=== PATIENT | male | born 1985 | race Caucasian/White ===

== ENCOUNTER 2018-04-09 12:46 | Inpatient (IN) | payer OTHER ==
[2018-04-09 14:56] VITALS: BMI 24.0
--- NOTE | 2018-04-09 16:44 | HP ---
"CIWA Score - CIWA Score Nausea/Vomitin-Mild Nausea/No Vomiting Muscle Tremors: 4-Moderate,w/Arms Extend Anxiety: 4-Mod. Anxious/Guarded Agitation: 4-Moderately Restless Paroxysmal Sweats: 1-Minimal Palms Moist Orientation: 0-Oriented Tacttile Disturbances: 0-None Auditory Disturbances: 0-None Visual Disturbances: 0-None Headache: 2-Mild CIWA-Ar Total Score: 16 Admission ROS BHS - HPI Chief Complaint: Here for alcohol withdrawal. Allergies/Adverse Reactions: Allergies Allergy/AdvReac Type Severity Reaction Status Date / Time No Known Allergies Allergy Verified 04/09/18 15:52 History of Present Illness: 32 yom w/ hx alcohol use since age 18. Cocaine use progressed to crack use since age 22. States crack use is increasingly out of control. Was taking taking ativan and seroquel while in patient at [facility] for suicidal ideation. [facility]. PTSD was related to experiences. First time in detox. Last attempts were in a 30 day program. Has been able to maintain sobriety for 3 years post rehab when starts an affiliation w/ a support group. Denies significant medical concerns. Search Terms: Shepaty Betancur, 1985 Search Date: 04/09/2018 05:13:58 PM The Drug Utilization Report below displays all of the controlled substance prescriptions, if any, that your patient has filled in the last twelve months. The information displayed on this report is compiled from pharmacy submissions to the Department, and accurately reflects the information as submitted by the pharmacies. This report was requested by: Iris Moraes | Reference #: [id number] There are no results for the search terms that you entered. Exam Limitations: No Limitations - Ebola screening Have you traveled outside of the country in the last 21 days: No Have you had contact with anyone from an Ebola affected area: No Have you been sick,other than usual withdrawal symptoms: No Do you have a fever: No - Review of Systems Constitutional: Changes in sleep (Difficulty falling and staying asleep. Has used seroquel in past for sleep. Last used 2 months ago.) EENT: reports: Blurred Vision (Wears corrective lenses. Did not bring contacts.) Respiratory: reports: Cough (Cough x a few hours. States cough produces blackish mucous.) Cardiac: reports: No Symptoms Reported GI: reports: No Symptoms Reported : reports: No Symptoms Reported Musculoskeletal: reports: No Symptoms Reported Integumentary: reports: Other (Has psoriasis on hands, knees, and elbows.) Neuro: reports: Tremors (mild tremors of hands r/t withdrawal) Endocrine: reports: No Symptoms Reported Hematology: reports: No Symptoms Reported Psychiatric: reports: Orientated x3, Agitated, Anxious, Depressed (has thought of harming self but never tried. Denies current thoughts to harm self or others. Hx. PTSD) Patient History - Patient Medical History Hx Anemia: No Hx Asthma: No Hx Chronic Obstructive Pulmonary Disease (COPD): No Hx Cancer: No Hx Cardiac Disorders: No Hx Congestive Heart Failure: No Hx Hypertension: No Hx Hypercholesterolemia: No Hx Pacemaker: No HX Cerebrovascular Accident: No Hx Seizures: No Hx Diabetes: No Hx Gastrointestinal Disorders: No Hx Liver Disease: No Hx Genitourinary Disorders: No Hx Sexually Transmitted Disorders: No Hx Renal Disease (ESRD): No Hx Thyroid Disease: No Hx Human Immunodeficiency Virus (HIV): No (Neg) Hx Hepatitis C: No Hx Depression: Yes (Has thought of harming self but never tried to do so.) Hx Suicide Attempt: No Hx Schizophrenia: No - Patient Surgical History Past Surgical History: No - PPD History Previous Implant?: Yes Documented Results: Negative w/proof Implanted On Prior R Admission?: No PPD to be Administered?: Yes - Smoking Cessation Smoking history: Current every day smoker Have you smoked in the past 12 months: Yes Aproximately how many cigarettes per day: 20 Hx Chewing Tobacco Use: No Initiated information on smoking cessation: Yes 'Breaking Loose' booklet given: 04/09/18 - Substance & Tx. History Hx Alcohol Use: Yes Hx Substance Use: Yes Substance Use Type: Alcohol, Cocaine Hx Substance Use Treatment: Yes (Prior 30 day rehabs) - Substances Abused Alcohol Route: Oral Frequency: Daily Amount used: 1 AND 1/2 PINTS VODKA/ 4 LOCOS Age of first use: 18 Date of Last Use: 04/09/18 Crack Route: Smoking Frequency: Daily Amount used: $200-300 Age of first use: 22 Date of Last Use: 04/08/18 Family Disease History - Family Disease History Family Disease History: Diabetes: Grandparent (pancreatic, thyroid, ), Father, Heart Disease: Grandparent, CA: Grandparent Admission Physical Exam [facility] - Vital Signs Vital Signs: Vital Signs - 24 hr 04/09/18 14:45 Temperature 97.0 F L Pulse Rate 87 Respiratory 20 Rate Blood Pressure 133/71 - Physical General Appearance: Yes: Nourished, Tremorous, Irritable, Anxious HEENTM: Yes: EOMI, Hearing grossly Normal, Normocephalic, SHERRON Respiratory: Yes: Chest Non-Tender, Lungs Clear, Normal Breath Sounds Neck: Yes: No masses,lesions,Nodules, Supple Breast: Yes: Breast Exam Deferred Cardiology: Yes: Regular Rhythm, Regular Rate, S1, S2 Abdominal: Yes: Normal Bowel Sounds, Non Tender, Flat, Soft Genitourinary: Yes: Within Normal Limits Back: Yes: Normal Inspection Musculoskeletal: Yes: full range of Motion, Gait Steady Extremities: Yes: Normal Capillary Refill, Normal Range of Motion, Non-Tender, Tremors (Of hands upon extension) 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 NML intact, Fully Oriented, Motor Strength 5/5 Integumentary: Yes: Normal Color, Dry, Warm, Other (Large areas of silvery, flaky patches on back of hands/knuckles, knees, and elbows.) Lymphatic: Yes: Within Normal Limits - Diagnostic (1) Alcohol dependence with uncomplicated withdrawal Current Visit: Yes Status: Acute (2) Cocaine dependence, uncomplicated Current Visit: Yes Status: Acute (3) Psoriasis Current Visit: Yes Status: Chronic (4) Nicotine dependence with withdrawal Current Visit: Yes Status: Acute Qualifiers: Nicotine product type: cigarettes Qualified Code(s): F17.213 - Nicotine dependence, cigarettes, with withdrawal Cleared for Admission [facility] - Detox or Rehab [facility] Level of Care: Medically Managed Detox Regimen/Protocol: Librium [facility] Breath Alcohol Content Breath Alcohol Content: 0.066 Urine Drug Screen - Results Drug Screen Negative: No Urine Drug Screen Results: GILBERTO-Cocaine"
[2018-04-09] MEDS ORDERED: LOPERAMIDE HCL 2 MG CAPSULE PO PRN (17:09)
[2018-04-09] MEDS ORDERED: IBUPROFEN 400 MG TABLET (FP) PO PRN (17:09)
[2018-04-09] MEDS ORDERED: guaiFENesin/D-METHORPHAN HB 10 ML UNIT-DOSE CUPS PO PRN (17:09)
[2018-04-09] MEDS ORDERED: NICOTINE POLACRILEX 2 MG GUM BC PRN (17:09)
[2018-04-09] MEDS ORDERED: MAG HYDROX/AL HYDROX/SIMETH 30 ML UNIT-DOSE CUP PO PRN (17:09)
[2018-04-09] MEDS ORDERED: ACETAMINOPHEN 325 MG TABLET (FP) PO PRN (17:09)
[2018-04-09] MEDS ORDERED: MAGNESIUM CITRATE 300 ML BOTTLE PO PRN (17:09)
[2018-04-09] MEDS ORDERED: chlordiazePOXIDE HCL 25 MG CAPSULE PO PRN (17:09)
[2018-04-09] MEDS ORDERED: MAGNESIUM HYDROX 2400MG/30ML ORAL SUSPENSION 30 ML CUP PO PRN (17:09)
[2018-04-09] MEDS ORDERED: MENTHOL/PHENOL 1 EACH UD MM PRN (17:09)
[2018-04-09] MEDS ORDERED: P-EPHED 60MG/TRIPROLIDI 2.5MG TABLET PO PRN (17:09)
[2018-04-09] MEDS ORDERED: COLLOIDAL OATMEAL 1 BAR EACH TP PRN (17:17)
[2018-04-09] MEDS ORDERED: MELATONIN 5 MG TABLETS PO PRN (22:00)
[2018-04-09] MEDS: THIAMINE HCL 100 MG TABLET (FP) PO SCH (22:34)
[2018-04-09] MEDS: chlordiazePOXIDE HCL 25 MG CAPSULE PO SCH (22:35)
[2018-04-09] MEDS: BETAMETHASONE DIP 0.05% TP LOTION 30 ML BOTTLE TP SCH (22:37)
[2018-04-10] MEDS: chlordiazePOXIDE HCL 25 MG CAPSULE PO SCH ×4 (05:56→22:25)
--- NOTE | 2018-04-10 10:18 | EKG ---
Test Reason : Blood Pressure : / mmHG Vent. Rate : 080 BPM Atrial Rate : 080 BPM P-R Int : 144 ms QRS Dur : 082 ms QT Int : 360 ms P-R-T Axes : -10 059 054 degrees QTc Int : 415 ms NORMAL SINUS RHYTHM NORMAL ECG NO PREVIOUS ECGS AVAILABLE Confirmed by ZAIDA SINCLAIR, KORY ([id number]) on 04/10/2018 10:18:11 AM Referred By: Confirmed By:KORY CERDA MD
[2018-04-10 10:38] LABS: HEMATOCRIT 43.8 % (35.4-49); HEMOGLOBIN 14.9 GM/dL (11.7-16.9); MCH 31.7 pg (25.7-33.7); MCHC 34.1 g/dl (32.0-35.9); MEAN CELL VOLUME 92.8 fl (80-96); MEAN PLT VOLUME 9.1 fl (7.5-11.1); PLATELET COUNT 197 K/MM3 (134-434); RBC 4.72 M/mm3 (4.00-5.60); RDW 12.2 % (11.9-15.9); WHITE BLOOD COUNT 8.5 K/mm3 (4.0-10.0)
[2018-04-10 10:45] LABS: CHLORIDE 106 mmol/L (98-107); SODIUM 143 mmol/L (136-145)
[2018-04-10] MEDS: PRENATAL VITAMINS W/ FOLIC ACID TABLET (FP) PO SCH (10:49)
[2018-04-10] MEDS: BETAMETHASONE DIP 0.05% TP LOTION 30 ML BOTTLE TP SCH ×2 (10:49→22:25)
[2018-04-10 10:53] LABS: URINE APPEARANCE CLEAR; URINE BILIRUBIN NEGATIVE (<2.0 mg/dL); URINE COLOR LTYELLOW; URINE GLUCOSE (UA) NEGATIVE (NEGATIVE); URINE KETONE NEGATIVE (NEGATIVE); URINE LEUK ESTERASE NEGATIVE (NEGATIVE); URINE NITRITE NEGATIVE (NEGATIVE); URINE PROTEIN NEGATIVE (NEGATIVE); URINE UROBILINOGEN NEGATIVE mg/dL (0.2-1.0)
[2018-04-10] MEDS: NICOTINE 21 MG/24 HOURS TOPICAL PATCH TD SCH (10:53)
[2018-04-10 11:06] LABS: ALBUMIN 3.3 g/dl (3.4-5.0); ALK PHOS 70 U/L (45-117); ANION GAP 6 (8-16); BILIRUBIN,TOTAL 0.2 mg/dL (0.2-1.0); BLOOD UREA NITROGEN 14 mg/dL (7-18); CALCIUM 8.7 mg/dL (8.5-10.1); CO2 31 mmol/L (21-32); CREATININE 0.9 mg/dL (0.7-1.3); GLUCOSE,RANDOM 66 mg/dL (74-106); SGOT/AST 19 U/L (15-37); SGPT/ALT 30 U/L (12-78); TOT PROT 6.2 g/dl (6.4-8.2)
--- NOTE | 2018-04-10 11:23 | CONSULT ---
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 Substance Abuse History: Confirmed by patient in this interview.Smoking history : Current every day smoker. Have you smoked in the past 12 months: Yes. Aproximately how many cigarettes per day: 20. Hx Chewing Tobacco Use: No. Initiated information on smoking cessation: Yes. 'Breaking Loose' booklet given : 04/09/18. - Substance & Tx. History. Hx Alcohol Use: Yes. Hx Substance Use : Yes. Substance Use Type: Alcohol, Cocaine. Hx Substance Use Treatment: Yes ( Prior 30 day rehabs). - Substances Abused. Alcohol. Route: Oral. Frequency: Daily. Amount used: 1 AND 1/2 PINTS VODKA/ 4 LOCOS. Age of first use: 18. Date of Last Use: 04/09/18. Crack. Route: Smoking. Frequency: Daily. Amount used: $200-300. Age of first use: 22. Date of Last Use: Medical History: Patient endorses good general health. Psychiatric History: Patient denies history of psychiatric hospitalizations (in spite of [facility] records indicative of a recent discharge from [facility] prior to this visit).Mr Betancur states that he has been diagnosed with Anxiety Disorder and PTSD.Prescribed seroquel + trazodone.Patient reports non-adherence to this regimen for past 2-3 weeks (ran out of medications).He indicates no current contact with OPD care providers (although review of pharmacy claims shows refills for seroquel - 100 mg tab # 90 for 30 days - issued on 04/01/18 at [facility]).Denies history of suicide attempts. Physical/Sexual Abuse/Trauma History: Traumatized by his combat experiences in [facility] + time served in care home (charges not revealed in this session). Additional Comment: Urine Drug Screen Results: GILBERTO-Cocaine.Noted. Mental Status Exam - Mental Status Exam Alert and Oriented to: Time, Place, Person Cognitive Function: Good Patient Appearance: Well Groomed Mood: Nervous, Anxious, Irritable Affect: Mood Congruent Patient Behavior: Fatigued, Cooperative Speech Pattern: Clear, Excessive Voice Loudness: Normal Thought Process: Goal Oriented Thought Disorder: Not Present Hallucinations: Denies Suicidal Ideation: Denies Homicidal Ideation: Denies Insight/Judgement: Poor Sleep: Poorly, Difficulty falling asleep Appetite: Good Muscle strength/Tone: Normal Gait/Station: Normal Psychiatric Findings - Problem List ([place] 1, 2,3) (1) Alcohol dependence with uncomplicated withdrawal Current Visit: Yes Status: Acute (2) Cocaine dependence, uncomplicated Current Visit: Yes Status: Acute (3) Nicotine dependence with withdrawal Current Visit: Yes Status: Acute Qualifiers: Nicotine product type: cigarettes Qualified Code(s): F17.213 - Nicotine dependence, cigarettes, with withdrawal (4) Substance induced mood disorder Current Visit: Yes Status: Acute (5) Post traumatic stress disorder (PTSD) Current Visit: Yes Status: Chronic Comment: As per self-report. (6) Insomnia Current Visit: Yes Status: Acute (7) Non compliance w medication regimen Current Visit: Yes Status: Chronic - Initial Treatment Plan Initial Treatment Plan: Psychoeducation.Detoxification.Sleep hygiene discussed with patient.Medications (patient's request) : seroquel 200 mg po hs + trazodone 50 mg po hs.Side effects/benefits of both drugs are discussed with the patient.Made aware of potential for sedation,falls,metabolic syndrome, cardiovascular adverse events and priapism.Mr Betancur agrees (verbally) to follow this treatment plan.Observation.NO need for scripts at discharge from [facility] (available refills at [facility] since 04/01/18).
[2018-04-10] MEDS: CYCLOBENZAPRINE HCL 10 MG TABLET (FP) PO PRN ×3 (12:42→22:26)
--- NOTE | 2018-04-10 16:01 | PN ---
[facility] CIWA - CIWA Score Nausea/Vomitin-No Nausea/No Vomiting Muscle Tremors: 3 Anxiety: 4-Mod. Anxious/Guarded Agitation: 4-Moderately Restless Paroxysmal Sweats: 3 Orientation: 0-Oriented Tacttile Disturbances: 2-Mild Itch/Numbness/Burn Auditory Disturbances: 0-None Visual Disturbances: 1-Very Mild Sensitivity Headache: 0-None Present CIWA-Ar Total Score: 17 BHS Progress Note (SOAP) Subjective: Body Aches, Sweating, Anxious, Tremors. Objective: PATIENT A & O X 3, OBSERVED AMBULATING ON UNIT. NO ACUTE DISTRESS. 04/10/18 15:58 Vital Signs Temperature 97.2 F L 04/10/18 09:58 Pulse Rate 70 04/10/18 09:58 Respiratory Rate 20 04/10/18 09:58 Blood Pressure 110/90 04/10/18 09:58 O2 Sat by Pulse Oximetry (%) Laboratory Tests 04/10/18 04/10/18 04/10/18 08:00 08:00 08:00 WBC 8.5 RBC 4.72 Hgb 14.9 Hct 43.8 MCV 92.8 MCH 31.7 MCHC 34.1 RDW 12.2 Plt Count 197 MPV 9.1 Sodium 143 Potassium 4.0 Chloride 106 Carbon Dioxide 31 Anion Gap 6 L BUN 14 Creatinine 0.9 Creat Clearance w eGFR > 60 Random Glucose 66 L Calcium 8.7 Total Bilirubin 0.2 AST 19 ALT 30 Alkaline Phosphatase 70 Total Protein 6.2 L Albumin 3.3 L Urine Color Urine Appearance Urine pH Ur Specific [place] Urine Protein Urine Glucose (UA) Urine Ketones Urine Blood Urine Nitrite Urine Bilirubin Urine Urobilinogen Ur Leukocyte Esterase RPR Titer HIV 1&2 Antibody Screen Negative HIV P24 Antigen Negative 04/10/18 04/10/18 08:00 08:30 WBC RBC Hgb Hct MCV MCH MCHC RDW Plt Count MPV Sodium Potassium Chloride Carbon Dioxide Anion Gap BUN Creatinine Creat Clearance w eGFR Random Glucose Calcium Total Bilirubin AST ALT Alkaline Phosphatase Total Protein Albumin Urine Color Ltyellow Urine Appearance Clear Urine pH 6.0 Ur Specific [place] 1.021 Urine Protein Negative Urine Glucose (UA) Negative Urine Ketones Negative Urine Blood Negative Urine Nitrite Negative Urine Bilirubin Negative Urine Urobilinogen Negative Ur Leukocyte Esterase Negative RPR Titer Nonreactive HIV 1&2 Antibody Screen HIV P24 Antigen LABS NOTED. Assessment: 04/10/18 15:59 WITHDRAWAL SYMPTOMS. Plan: CONTINUE DETOX. INCREASE DAILY PO FLUID INTAKE. PRN FLEXERIL PO FOR BODY ACHES / MUSCLE SPASMS.
[2018-04-10] MEDS: traZODone HCL 50 MG TABLET (FP) PO SCH (22:25)
[2018-04-10] MEDS: THIAMINE HCL 100 MG TABLET (FP) PO SCH (22:25)
[2018-04-10] MEDS: QUEtiapine FUMARATE 200 MG TABLET PO SCH (22:26)
[2018-04-11] MEDS: chlordiazePOXIDE HCL 25 MG CAPSULE PO SCH ×3 (05:58→17:27)
[2018-04-11] MEDS: CYCLOBENZAPRINE HCL 10 MG TABLET (FP) PO PRN (06:01)
[2018-04-11] MEDS: PRENATAL VITAMINS W/ FOLIC ACID TABLET (FP) PO SCH (10:34)
[2018-04-11] MEDS: NICOTINE 21 MG/24 HOURS TOPICAL PATCH TD SCH (10:34)
[2018-04-11] MEDS: BETAMETHASONE DIP 0.05% TP LOTION 30 ML BOTTLE TP SCH ×2 (10:34→22:37)
--- NOTE | 2018-04-11 17:14 | PN ---
S CIWA - CIWA Score Nausea/Vomitin Muscle Tremors: 3 Anxiety: 3 Agitation: 3 Paroxysmal Sweats: 3 Orientation: 0-Oriented Tacttile Disturbances: 1-Very Mild Itch/Numbness Auditory Disturbances: 0-None Visual Disturbances: 0-None Headache: 1-Very Mild CIWA-Ar Total Score: 16 [facility] Progress Note (SOAP) Subjective: Sweating, anxious Objective: 04/11/18 17:12 Last Vital Signs Temp Pulse Resp BP Pulse Ox 97.1 F L 104 H 18 120/82 04/11/18 15:04 04/11/18 15:04 04/11/18 15:04 04/11/18 15:04 Laboratory Tests 04/10/18 04/10/18 04/10/18 08:00 08:00 08:00 WBC 8.5 RBC 4.72 Hgb 14.9 Hct 43.8 MCV 92.8 MCH 31.7 MCHC 34.1 RDW 12.2 Plt Count 197 MPV 9.1 Sodium 143 Potassium 4.0 Chloride 106 Carbon Dioxide 31 Anion Gap 6 L BUN 14 Creatinine 0.9 Creat Clearance w eGFR > 60 Random Glucose 66 L Calcium 8.7 Total Bilirubin 0.2 AST 19 ALT 30 Alkaline Phosphatase 70 Total Protein 6.2 L Albumin 3.3 L Urine Color Urine Appearance Urine pH Ur Specific [place] Urine Protein Urine Glucose (UA) Urine Ketones Urine Blood Urine Nitrite Urine Bilirubin Urine Urobilinogen Ur Leukocyte Esterase RPR Titer HIV 1&2 Antibody Screen Negative HIV P24 Antigen Negative 04/10/18 04/10/18 08:00 08:30 WBC RBC Hgb Hct MCV MCH MCHC RDW Plt Count MPV Sodium Potassium Chloride Carbon Dioxide Anion Gap BUN Creatinine Creat Clearance w eGFR Random Glucose Calcium Total Bilirubin AST ALT Alkaline Phosphatase Total Protein Albumin Urine Color Ltyellow Urine Appearance Clear Urine pH 6.0 Ur Specific [place] 1.021 Urine Protein Negative Urine Glucose (UA) Negative Urine Ketones Negative Urine Blood Negative Urine Nitrite Negative Urine Bilirubin Negative Urine Urobilinogen Negative Ur Leukocyte Esterase Negative RPR Titer Nonreactive HIV 1&2 Antibody Screen HIV P24 Antigen Labs reviewed Assessment: 04/11/18 17:13 Withdrawal symptoms Plan: Continue detox Encouraged PO water hydration
[2018-04-11] MEDS: hydrOXYzine PAMOATE 50 MG CAPSULE (FP) PO PRN (17:29)
[2018-04-11] MEDS: NICOTINE POLACRILEX 4 MG GUM BUC PRN (17:30)
[2018-04-11] MEDS: traZODone HCL 50 MG TABLET (FP) PO SCH (22:37)
[2018-04-11] MEDS: QUEtiapine FUMARATE 200 MG TABLET PO SCH (22:37)
[2018-04-11] MEDS: THIAMINE HCL 100 MG TABLET (FP) PO SCH (22:37)
[2018-04-11] MEDS: chlordiazePOXIDE 5 MG CAPSULE PO SCH (22:38)
[2018-04-12] MEDS: CYCLOBENZAPRINE HCL 10 MG TABLET (FP) PO PRN ×2 (05:52→22:19)
[2018-04-12] MEDS: chlordiazePOXIDE 5 MG CAPSULE PO SCH ×3 (05:52→17:21)
[2018-04-12] MEDS: NICOTINE POLACRILEX 4 MG GUM BUC PRN ×3 (05:55→17:21)
[2018-04-12] MEDS ORDERED: cloNIDine HCL 0.1 MG TABLET PO ONE (09:01)
[2018-04-12] MEDS: PRENATAL VITAMINS W/ FOLIC ACID TABLET (FP) PO SCH (10:48)
[2018-04-12] MEDS: NICOTINE 21 MG/24 HOURS TOPICAL PATCH TD SCH (10:48)
[2018-04-12] MEDS: BETAMETHASONE DIP 0.05% TP LOTION 30 ML BOTTLE TP SCH ×2 (10:48→22:18)
--- NOTE | 2018-04-12 16:37 | PN ---
BHS Progress Note (SOAP) Subjective: Anxious, Interrupted Sleep, Body Aches. Objective: PATIENT A & O X 3, OBSERVED AMBULATING ON UNIT. NO ACUTE DISTRESS. 04/12/18 16:34 Vital Signs Temperature 97.1 F L 04/12/18 13:49 Pulse Rate 108 H 04/12/18 13:49 Respiratory Rate 18 04/12/18 13:49 Blood Pressure 133/73 04/12/18 13:49 O2 Sat by Pulse Oximetry (%) Laboratory Tests 04/10/18 04/10/18 04/10/18 08:00 08:00 08:00 WBC 8.5 RBC 4.72 Hgb 14.9 Hct 43.8 MCV 92.8 MCH 31.7 MCHC 34.1 RDW 12.2 Plt Count 197 MPV 9.1 Sodium 143 Potassium 4.0 Chloride 106 Carbon Dioxide 31 Anion Gap 6 L BUN 14 Creatinine 0.9 Creat Clearance w eGFR > 60 Random Glucose 66 L Calcium 8.7 Total Bilirubin 0.2 AST 19 ALT 30 Alkaline Phosphatase 70 Total Protein 6.2 L Albumin 3.3 L Urine Color Urine Appearance Urine pH Ur Specific [place] Urine Protein Urine Glucose (UA) Urine Ketones Urine Blood Urine Nitrite Urine Bilirubin Urine Urobilinogen Ur Leukocyte Esterase RPR Titer HIV 1&2 Antibody Screen Negative HIV P24 Antigen Negative 04/10/18 04/10/18 08:00 08:30 WBC RBC Hgb Hct MCV MCH MCHC RDW Plt Count MPV Sodium Potassium Chloride Carbon Dioxide Anion Gap BUN Creatinine Creat Clearance w eGFR Random Glucose Calcium Total Bilirubin AST ALT Alkaline Phosphatase Total Protein Albumin Urine Color Ltyellow Urine Appearance Clear Urine pH 6.0 Ur Specific [place] 1.021 Urine Protein Negative Urine Glucose (UA) Negative Urine Ketones Negative Urine Blood Negative Urine Nitrite Negative Urine Bilirubin Negative Urine Urobilinogen Negative Ur Leukocyte Esterase Negative RPR Titer Nonreactive HIV 1&2 Antibody Screen HIV P24 Antigen LABS NOTED. Assessment: 04/12/18 16:35 WITHDRAWAL SYMPTOMS. Plan: CONTINUE DETOX. INCREASE DAILY PO FLUID INTAKE. PATIENT SCHEDULED FOR D/C TOMORROW AM.
[2018-04-12] MEDS: hydrOXYzine PAMOATE 50 MG CAPSULE (FP) PO PRN (17:22)
[2018-04-12] MEDS: traZODone HCL 50 MG TABLET (FP) PO SCH (22:19)
[2018-04-12] MEDS: QUEtiapine FUMARATE 200 MG TABLET PO SCH (22:19)
[2018-04-12] MEDS: THIAMINE HCL 100 MG TABLET (FP) PO SCH (22:19)
[2018-04-12] MEDS: chlordiazePOXIDE HCL 10 MG CAPSULE PO SCH (22:19)
[2018-04-13] MEDS: chlordiazePOXIDE HCL 10 MG CAPSULE PO SCH (05:30)
[2018-04-13 06:33] VITALS: BP 117/67; PULSE 77; TEMP 96.9
--- NOTE | 2018-04-13 16:39 | PN ---
S Progress Note (SOAP) Subjective: Patient denies current Detox symptoms and reports that he feels well overall. Objective: PATIENT A & O X 3, OBSERVED AMBULATING ON UNIT. NO ACUTE DISTRESS. 04/13/18 16:38 Vital Signs Temperature 96.9 F L 04/13/18 06:32 Pulse Rate 77 04/13/18 06:32 Respiratory Rate 18 04/13/18 06:32 Blood Pressure 117/67 04/13/18 06:32 O2 Sat by Pulse Oximetry (%) Laboratory Tests 04/10/18 04/10/18 04/10/18 08:00 08:00 08:00 WBC 8.5 RBC 4.72 Hgb 14.9 Hct 43.8 MCV 92.8 MCH 31.7 MCHC 34.1 RDW 12.2 Plt Count 197 MPV 9.1 Sodium 143 Potassium 4.0 Chloride 106 Carbon Dioxide 31 Anion Gap 6 L BUN 14 Creatinine 0.9 Creat Clearance w eGFR > 60 Random Glucose 66 L Calcium 8.7 Total Bilirubin 0.2 AST 19 ALT 30 Alkaline Phosphatase 70 Total Protein 6.2 L Albumin 3.3 L Urine Color Urine Appearance Urine pH Ur Specific [place] Urine Protein Urine Glucose (UA) Urine Ketones Urine Blood Urine Nitrite Urine Bilirubin Urine Urobilinogen Ur Leukocyte Esterase RPR Titer HIV 1&2 Antibody Screen Negative HIV P24 Antigen Negative 04/10/18 04/10/18 08:00 08:30 WBC RBC Hgb Hct MCV MCH MCHC RDW Plt Count MPV Sodium Potassium Chloride Carbon Dioxide Anion Gap BUN Creatinine Creat Clearance w eGFR Random Glucose Calcium Total Bilirubin AST ALT Alkaline Phosphatase Total Protein Albumin Urine Color Ltyellow Urine Appearance Clear Urine pH 6.0 Ur Specific [place] 1.021 Urine Protein Negative Urine Glucose (UA) Negative Urine Ketones Negative Urine Blood Negative Urine Nitrite Negative Urine Bilirubin Negative Urine Urobilinogen Negative Ur Leukocyte Esterase Negative RPR Titer Nonreactive HIV 1&2 Antibody Screen HIV P24 Antigen LABS NOTED. Assessment: 04/13/18 16:38 COMPLETION OF DETOX REGIMEN. Plan: PATIENT SCHEDULED FOR DISCHARGE FROM DETOX UNIT TODAY.
--- NOTE | 2018-04-13 16:42 | DS ---
[facility] Detox Discharge Summary Admission Date: 04/09/18 Discharge Date: 04/13/18 - History Present History: Alcohol Dependence, Cocaine Dependence Additional Comments: PATIENT GOING HOME. PATIENT ADVISED TO CONSIDER LOCAL 12-STEP / NA / AA OUTPATIENT SUPPORT GROUPS FOR AFTERCARE. PATIENT WAS DISCHARGED FROM DETOX UNIT IN STABLE MEDICAL CONDITION. Pertinent Past History: Psoriasis, Nicotine Dependence, Insomnia, PTSD. - Physical Exam Results Vital Signs: Vital Signs Temperature 96.9 F L 04/13/18 06:32 Pulse Rate 77 04/13/18 06:32 Respiratory Rate 18 04/13/18 06:32 Blood Pressure 117/67 04/13/18 06:32 O2 Sat by Pulse Oximetry (%) Pertinent Admission Physical Exam Findings: WITHDRAWAL SYMPTOMS. Laboratory Tests 04/10/18 04/10/18 04/10/18 08:00 08:00 08:00 WBC 8.5 RBC 4.72 Hgb 14.9 Hct 43.8 MCV 92.8 MCH 31.7 MCHC 34.1 RDW 12.2 Plt Count 197 MPV 9.1 Sodium 143 Potassium 4.0 Chloride 106 Carbon Dioxide 31 Anion Gap 6 L BUN 14 Creatinine 0.9 Creat Clearance w eGFR > 60 Random Glucose 66 L Calcium 8.7 Total Bilirubin 0.2 AST 19 ALT 30 Alkaline Phosphatase 70 Total Protein 6.2 L Albumin 3.3 L Urine Color Urine Appearance Urine pH Ur Specific [place] Urine Protein Urine Glucose (UA) Urine Ketones Urine Blood Urine Nitrite Urine Bilirubin Urine Urobilinogen Ur Leukocyte Esterase RPR Titer HIV 1&2 Antibody Screen Negative HIV P24 Antigen Negative 04/10/18 04/10/18 08:00 08:30 WBC RBC Hgb Hct MCV MCH MCHC RDW Plt Count MPV Sodium Potassium Chloride Carbon Dioxide Anion Gap BUN Creatinine Creat Clearance w eGFR Random Glucose Calcium Total Bilirubin AST ALT Alkaline Phosphatase Total Protein Albumin Urine Color Ltyellow Urine Appearance Clear Urine pH 6.0 Ur Specific [place] 1.021 Urine Protein Negative Urine Glucose (UA) Negative Urine Ketones Negative Urine Blood Negative Urine Nitrite Negative Urine Bilirubin Negative Urine Urobilinogen Negative Ur Leukocyte Esterase Negative RPR Titer Nonreactive HIV 1&2 Antibody Screen HIV P24 Antigen LABS NOTED. - Treatment Hospital Course: Detox Protocol Followed, Detoxed Safely, Responded well, Discharged Condition Good Patient has Accepted a Rehab Referral to: PT. ADVISED TO CONSIDER LOCAL 12-STEP/ NA/AA OUTPATIENT SUPPORT GROUPS. - Medication Discharge Medications: Ambulatory Orders NK [No Known Home Medication] 04/09/18 - Diagnosis (1) Alcohol dependence with uncomplicated withdrawal Status: Acute (2) Cocaine dependence, uncomplicated Status: Chronic (3) Nicotine dependence with withdrawal Status: Chronic Qualifiers: Nicotine product type: cigarettes Qualified Code(s): F17.213 - Nicotine dependence, cigarettes, with withdrawal (4) Psoriasis Status: Chronic (5) Insomnia Status: Acute Qualifiers: Insomnia type: unspecified Qualified Code(s): G47.00 - Insomnia, unspecified (6) Substance induced mood disorder Status: Acute (7) Non compliance w medication regimen Status: Chronic (8) Post traumatic stress disorder (PTSD) Status: Chronic - AMA Did Patient Leave Against Medical Advice: No
== END 2018-04-13 10:55 | disposition home or self-care (01) | DRG 774 ==
LOC: YASAS 12:46 → Y3N 17:19
PROVIDERS: ADMIT Surgery; ATTEND Surgery
PROC: HZ2ZZZZ Detoxification Services for Substance Abuse Treatment (ICD-10-PCS; principal; 2018-04-09)
DX: F10.230 Alcohol dependence with withdrawal, uncomplicated (principal); F14.20 Cocaine dependence, uncomplicated; F17.213 Nicotine dependence, cigarettes, with withdrawal; F19.24 Other psychoactive substance dependence with psychoactive substance-induced mood disorder; F43.10 Post-traumatic stress disorder, unspecified; L40.9 Psoriasis, unspecified; G47.00 Insomnia, unspecified; Z91.14 Patient's other noncompliance with medication regimen
CPT/HCPCS: 36415; 80053; 81003; 85027; 86593; 87389; 93005; 93010; J0735

== ENCOUNTER 2018-10-17 11:09 | Emergency (ER) | payer OTHER ==
[2018-10-17 11:23] VITALS: BP 134/72; PULSE 78; TEMP 97.6
--- NOTE | 2018-10-17 11:45 | PDOC ---
History of Present Illness - General Chief Complaint: Migraine Headache Stated Complaint: headache Time Seen by Provider: 10/17/18 11:13 - History of Present Illness Initial Comments: 10/17/18 16:16 Chief complaint: Occipital headache History of present illness: Patient complains of intermittent occipital headache for several days after heavy weight lifting. The pain is temporarily relieved with ibuprofen but then returns. He has been performing all his normal activities, going to work, and sleeping without incident. Review of systems: No visual or focal neurologic symptoms. No unsteadiness of gait. No chest pain, shortness of breath, abdominal pain, nausea, vomiting, diarrhea, dysuria or frequency. Past medical history: Facial fracture many years ago of the right orbit, multiple problems with drugs and alcohol, denies excessive alcohol or use of nonprescription drugs at present Social/family history reviewed and noncontributory except as above Physical exam: Alert and oriented well-developed well-nourished no acute distress cheerful and cooperative Afebrile, vital signs normal Head atraumatic. No sign of injury. No contusions abrasions or lacerations. PERRLA 4 mm, fundi benign with sharp disc margins and good central venous pulsations. ENT clear Neck without tenderness or deformity, full range of motion without pain, no bruits masses or nodes Chest clear to P&A full breath sounds bilaterally CV S1 and S2 normal without murmur rub or gallop pulses full and symmetric no JVD or edema no bruits Abdomen nondistended. Bowel sounds normal. Soft without mass tenderness organomegaly Neurological C2 to 12 intact. Strength full and symmetric. No focal or sensory or motor deficits. Gait stable and unimpaired. Impression: Headache for several days, probably due to stress or tension. Plan: CT is negative. Analgesia successful, with complete resolution of the headache. Continue nonsteroidals, rest, follow-up primary physician if headaches recur, or consider neurology consultation. Fully ambulatory and in no pain or other distress upon discharge with to follow-up as directed Past History - Past Medical History Allergies/Adverse Reactions: Allergies Allergy/AdvReac Type Severity Reaction Status Date / Time No Known Allergies Allergy Verified 10/17/18 11:15 Home Medications: Ambulatory Orders Diclofenac Sodium 75 mg PO BID #14 tablet. 10/17/18 hydrOXYzine PAMOATE [Vistaril -] 50 mg PO HS PRN #10 capsule 10/17/18 Anemia: No Asthma: No Cancer: No Cardiac Disorders: No CVA: No COPD: No CHF: No Diabetes: No GI Disorders: No Disorders: No HTN: No Hypercholesterolemia: No Kidney Stones: No Liver Disease: No Seizures: No Thyroid Disease: No - Reproductive History Testicular Surgery: No - Suicide/Smoking/Psychosocial Hx Smoking History: Never smoked Have you smoked in the past 12 months: No Number of Cigarettes Smoked Daily: 20 Information on smoking cessation initiated: No 'Breaking Loose' booklet given: 04/09/18 Hx Alcohol Use: No Drug/Substance Use Hx: No Substance Use Type: Alcohol, Cocaine Hx Substance Use Treatment: Yes (Prior 30 day rehabs) *Physical Exam - Vital Signs Last Vital Signs Temp Pulse Resp BP Pulse Ox 97.6 F 78 20 134/72 100 10/17/18 11:09 10/17/18 11:09 10/17/18 11:09 10/17/18 11:09 10/17/18 11:09 Moderate Sedation - Procedure Monitoring Vital Signs: Procedure Monitoring Vital Signs Temperature 97.6 F 10/17/18 11:09 Pulse Rate 78 10/17/18 11:09 Respiratory Rate 20 10/17/18 11:09 Blood Pressure 134/72 10/17/18 11:09 O2 Sat by Pulse Oximetry (%) 100 10/17/18 11:09 *DC/Admit/Observation/Transfer Diagnosis at time of Disposition: Headache Qualifiers: Headache type: tension-type Headache chronicity pattern: unspecified pattern Intractability: not intractable Qualified Code(s): G44.209 - Tension-type headache, unspecified, not intractable - Discharge Dispostion Disposition: HOME Condition at time of disposition: Improved Decision to Admit order: No - Prescriptions Prescriptions: Diclofenac Sodium 75 mg PO BID #14 tablet. hydrOXYzine PAMOATE [Vistaril -] 50 mg PO HS PRN #10 capsule PRN Reason: Agitation - Referrals - Patient Instructions Printed Discharge Instructions: DI for Migraine - Post Discharge Activity Forms/Work/School Notes: Back to Work
[2018-10-17] MEDS ORDERED: hydrOXYzine PAMOATE 50 MG CAPSULE (FP) PO ONE (11:46)
[2018-10-17] MEDS ORDERED: KETOROLAC TROMETHAMINE 60 MG/2 ML VIAL IM ONE (11:46)
[2018-10-17] MEDS ORDERED: KETOROLAC TROMETHAMINE 60 MG/2 ML VIAL ONE (12:01)
[2018-10-17] MEDS ORDERED: hydrOXYzine PAMOATE 25 MG CAPSULE (FP) PO ONE (12:01)
[2018-10-17 12:30] VITALS: BMI 29.4
== END 2018-10-17 13:57 | disposition home or self-care (01) ==
LOC: FER 11:09
PROC: 3E0333Z Introduction of Anti-inflammatory into Peripheral Vein, Percutaneous Approach (ICD-10-PCS; principal; 2018-10-17)
DX: G44.209 Tension-type headache, unspecified, not intractable (principal); Z87.891 Personal history of nicotine dependence
CPT/HCPCS: 70450-TC; 99281-25

== ENCOUNTER 2018-11-30 15:36 | Inpatient (IN) | payer OTHER ==
[2018-11-30 17:36] VITALS: BMI 25.8
--- NOTE | 2018-11-30 17:49 | HP ---
CIWA Score Nausea/Vomitin-Mild Nausea/No Vomiting Muscle Tremors: 3 Anxiety: 2 Agitation: 3 Paroxysmal Sweats: 1-Minimal Palms Moist Orientation: 1-Uncertain about Date Tacttile Disturbances: 2-Mild Itch/Numbness/Burn Auditory Disturbances: 2-Mild Harshness/Frighten Visual Disturbances: 1-Very Mild Sensitivity Headache: 1-Very Mild CIWA-Ar Total Score: 17 - Admission Criteria OASAS Guidelines: Admission for Medically Managed Detox: Requires at least one of the followin. CIWA greater than 12 2. Seizures within the past 24 hours 3. Delirium tremens within the past 24 hours 4. Hallucinations within the past 24 hours 5. Acute intervention needed for co occurring medical disorder 6. Acute intervention needed for co occurring psychiatric disorder 7. Severe withdrawal that cannot be handled at a lower level of care (continued vomiting, continued diarrhea, abnormal vital signs) requiring intravenous medication and/or fluids 8. Admission ROS S - [facility] Chief Complaint: WITHDRAWAL SYMPTOMS Allergies/Adverse Reactions: Allergies Allergy/AdvReac Type Severity Reaction Status Date / Time No Known Allergies Allergy Verified 10/17/18 11:15 History of Present Illness: 33 Y.O. MAN WITH AN EXTENSIVE HISTORY OF ALCOHOL AND CRACK-COCAINE DEPENDENCE IS HERE SEEKING DETOX. HE WAS LAST HERE IN 04/2018 FOR DETOX. DOES NOT HAVE A SIGNIFICANT PERIOD OF SOBRIETY. Exam Limitations: No Limitations - Ebola screening Have you traveled outside of the country in the last 21 days: No Have you had contact with anyone from an Ebola affected area: No Have you been sick,other than usual withdrawal symptoms: No Do you have a fever: No - Review of Systems Constitutional: Chills, Loss of Appetite, Night Sweats, Changes in sleep, Unintentional Wgt. Loss EENT: reports: Blurred Vision, Tearing Respiratory: reports: Cough Cardiac: reports: Chest Pain GI: reports: No Symptoms Reported : reports: No Symptoms Reported Musculoskeletal: reports: Joint Pain Integumentary: reports: No Symptoms Reported Neuro: reports: Tremors Endocrine: reports: No Symptoms Reported Hematology: reports: No Symptoms Reported Psychiatric: reports: Anxious, Depressed Other Systems: Reviewed and Negative Patient History - Patient Medical History Hx Anemia: No Hx Asthma: No Hx Chronic Obstructive Pulmonary Disease (COPD): No Hx Cancer: No Hx Cardiac Disorders: No Hx Congestive Heart Failure: No Hx Hypertension: No Hx Hypercholesterolemia: No Hx Pacemaker: No HX Cerebrovascular Accident: No Hx Seizures: Yes Hx Dementia: No (DOES NOT RECDALL LAST SZ ) Hx Diabetes: No Hx Gastrointestinal Disorders: No Hx Liver Disease: No Hx Genitourinary Disorders: No Hx Sexually Transmitted Disorders: No Hx Renal Disease (ESRD): No Hx Thyroid Disease: No Hx Human Immunodeficiency Virus (HIV): No (Neg) Hx Hepatitis C: No Hx Depression: Yes (Has thought of harming self but never tried to do so.) Hx Suicide Attempt: No Hx Bipolar Disorder: No Hx Schizophrenia: No - Patient Surgical History Past Surgical History: No - PPD History Previous Implant?: Yes Documented Results: Negative w/o proof Implanted On Prior [facility] Admission?: Yes Date: 04/11/18 Results: 0 PPD to be Administered?: No - Reproductive History Patient is a Female of Child Bearing Age (11 -55 yrs old): No - Smoking Cessation Smoking history: Current every day smoker Have you smoked in the past 12 months: No Aproximately how many cigarettes per day: 20 Hx Chewing Tobacco Use: No Initiated information on smoking cessation: Yes 'Breaking Loose' booklet given: 11/30/18 - Substance & Tx. History Hx Alcohol Use: Yes Hx Substance Use: Yes Substance Use Type: Alcohol, Cocaine Hx Substance Use Treatment: Yes (DETOX: 04/2018) - Substances Abused Alcohol Route: Inhalation Frequency: Daily Amount used: 3-4 4-LOCOS Age of first use: 15 Date of Last Use: 11/30/18 Crack Route: Smoking Frequency: Daily Amount used: $500 Age of first use: 19 Date of Last Use: 11/29/18 Family Disease History - Family Disease History Family Disease History: Diabetes: Grandparent (pancreatic, thyroid, ), Father, Heart Disease: Grandparent, [place]: Grandparent Admission Physical Exam [facility] - Vital Signs Vital Signs: Vital Signs - 24 hr 11/30/18 17:23 Temperature 97.3 F L Pulse Rate 95 H Respiratory 20 Rate Blood Pressure 150/101 H - Physical General Appearance: Yes: Tremorous, Irritable, Sweating, Anxious HEENTM: Yes: Hearing grossly Normal, Normal ENT Inspection, Normocephalic Respiratory: Yes: Chest Non-Tender, Lungs Clear, Normal Breath Sounds, No Respiratory Distress, No Accessory Muscle Use Neck: Yes: Within Normal Limits, No masses,lesions,Nodules Breast: Yes: Breast Exam Deferred Cardiology: Yes: Regular Rhythm, Regular Rate Abdominal: Yes: Normal Bowel Sounds, Non Tender, Flat Genitourinary: Yes: Other (NO COMPLAINTS REPORTED) Back: Yes: Normal Inspection Musculoskeletal: Yes: full range of Motion, Gait Steady, Pelvis Stable Extremities: Yes: Normal Capillary Refill, Normal Inspection, Normal Range of Motion, Non-Tender Neurological: Yes: Alert, Motor Strength 5/5, Normal Mood/Affect, Normal Response Integumentary: Yes: Normal Color, Dry, Warm Lymphatic: Yes: Within Normal Limits - Diagnostic (1) Alcohol dependence with uncomplicated withdrawal Current Visit: Yes Status: Chronic (2) Cocaine dependence, uncomplicated Current Visit: Yes Status: Chronic (3) Nicotine dependence with withdrawal Current Visit: Yes Status: Chronic Qualifiers: Nicotine product type: cigarettes Qualified Code(s): F17.213 - Nicotine dependence, cigarettes, with withdrawal Cleared for Admission [facility] - Detox or Rehab [facility] Level of Care: Medically Managed Detox Regimen/Protocol: Valium [facility] Breath Alcohol Content Breath Alcohol Content: 0.079 Urine Drug Screen - Results Drug Screen Negative: No Urine Drug Screen Results: THC-Marijuana, GILBERTO-Cocaine, MET-Methamphetamine, BZO- Benzodiazepines Inpatient Rehab Admission - Rehab Decision to Admit Inpatient rehab admission?: No
[2018-11-30] MEDS ORDERED: hydrOXYzine PAMOATE 25 MG CAPSULE (FP) PO PRN (17:56)
[2018-11-30] MEDS ORDERED: QUEtiapine FUMARATE 50 MG TABLET PO PRN (17:56)
[2018-11-30] MEDS ORDERED: METHOCARBAMOL 500 MG TABLET PO PRN (17:56)
[2018-11-30] MEDS ORDERED: ACETAMINOPHEN 325 MG TABLET (FP) PO PRN ×2 (17:56)
[2018-11-30] MEDS ORDERED: MAG HYDROX/AL HYDROX/SIMETH 30 ML UNIT-DOSE CUP PO PRN (17:56)
[2018-11-30] MEDS ORDERED: MENTHOL/PHENOL 1 EACH UD MM PRN (17:56)
[2018-11-30] MEDS ORDERED: BISMUTH SUBSALICYLATE 524 MG/30 ML UD PO PRN (17:56)
[2018-11-30] MEDS ORDERED: MAGNESIUM CITRATE 300 ML BOTTLE PO PRN (17:56)
[2018-11-30] MEDS ORDERED: MELATONIN 5 MG TABLETS PO PRN (17:56)
[2018-11-30] MEDS ORDERED: MAGNESIUM HYDROX 2400MG/30ML ORAL SUSPENSION 30 ML CUP PO PRN (17:56)
[2018-11-30] MEDS ORDERED: IBUPROFEN 400 MG TABLET (FP) PO PRN (17:56)
[2018-11-30] MEDS ORDERED: ONDANSETRON *ODT* 4 MG TABLET SL PRN (17:56)
[2018-11-30] MEDS ORDERED: diazePAM 5 MG TABLET PO ONE (19:15)
[2018-11-30] MEDS: THIAMINE HCL 100 MG TABLET (FP) PO SCH (22:55)
[2018-11-30] MEDS: diazePAM 5 MG TABLET PO SCH (22:55)
[2018-12-01] MEDS: diazePAM 5 MG TABLET PO SCH ×3 (06:58→22:24)
--- NOTE | 2018-12-01 09:32 | EKG ---
Test Reason : Blood Pressure : / mmHG Vent. Rate : 084 BPM Atrial Rate : 084 BPM P-R Int : 164 ms QRS Dur : 092 ms QT Int : 366 ms P-R-T Axes : -11 047 052 degrees QTc Int : 432 ms NORMAL SINUS RHYTHM NORMAL ECG WHEN COMPARED WITH ECG OF 09-APR-2018 18:26, NONSPECIFIC T WAVE ABNORMALITY NOW EVIDENT IN ANTERIOR LEADS Confirmed by ZAIDA SINCLAIR, KORY ([id number]) on 12/01/2018 9:31:42 AM Referred By: Confirmed By:KORY CERDA MD
[2018-12-01] MEDS: diazePAM 5 MG TABLET PO PRN ×2 (10:46→17:44)
[2018-12-01] MEDS: PRENATAL VITAMINS W/ FOLIC ACID TABLET (FP) PO SCH (10:46)
[2018-12-01] MEDS: NICOTINE 21 MG/24 HOURS TOPICAL PATCH TD SCH (11:51)
--- NOTE | 2018-12-01 12:17 | PN ---
S CIWA - CIWA Score Nausea/Vomitin-No Nausea/No Vomiting Muscle Tremors: 3 Anxiety: 3 Agitation: 4-Moderately Restless Paroxysmal Sweats: 3 Orientation: 0-Oriented Tacttile Disturbances: 0-None Auditory Disturbances: 0-None Visual Disturbances: 0-None Headache: 0-None Present CIWA-Ar Total Score: 13 BHS Progress Note (SOAP) Subjective: sweats shakes interrupted sleep body aches Objective: 12/01/18 12:16 Vital Signs Temperature 96.8 F L 12/01/18 10:01 Pulse Rate 98 H 12/01/18 10:01 Respiratory Rate 16 12/01/18 10:01 Blood Pressure 134/69 12/01/18 10:01 O2 Sat by Pulse Oximetry (%) labs pending aaox3 ambulating no acute distress Assessment: 12/01/18 12:17 withdrawal sx Plan: continue detox increase fluids labs pending
[2018-12-01 12:34] LABS: HEMATOCRIT 45.5 % (35.4-49); HEMOGLOBIN 15.1 GM/dL (11.7-16.9); MCHC 33.3 g/dl (32.0-35.9); MEAN CELL VOLUME 93.1 fl (80-96); MEAN PLT VOLUME 9.6 fl (7.5-11.1); PLATELET COUNT 217 K/MM3 (134-434); RBC 4.89 M/mm3 (4.00-5.60); RDW 12.3 % (11.9-15.9); WHITE BLOOD COUNT 5.8 K/mm3 (4.0-10.0)
--- NOTE | 2018-12-01 12:58 | CONSULT ---
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 Smkoes cigarettes 1 ppd Psychiatric History: Reports being diagnosed with PTSD in 2007 and prescribed medications. Reports non adherent to OPD care and medications. Reports receiving medications whenever admitted to inpatient substance abuse program. He was admitted to this facility in April 2018 and prescribed Seroquel 200 mg po HS and Trazadone 50 mg po HS by Dr Collins. 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 Denies previous psychiatric hospitalizaytion or suicidal attempt. At present, reports feeling depressed, anxious and sleeping poorly Physical/Sexual Abuse/Trauma History: Denies history of emotional, physical or sexual abuse as well as DV relationship. Traumatized by his combat experiences in [place] + time served in [facility] (charges not revealed in this session). Mental Status Exam - Mental Status Exam Alert and Oriented to: Time, Place, Person Cognitive Function: Fair Patient Appearance: Well Groomed Mood: Depressed, Anxious Affect: Appropriate Patient Behavior: Cooperative Speech Pattern: Clear Voice Loudness: Normal Thought Process: Intact, Goal Oriented Hallucinations: Denies Suicidal Ideation: Denies Insight/Judgement: Fair Sleep: Poorly Appetite: Good Muscle strength/Tone: Normal Psychiatric Findings - Problem List (Carmel 1, 2,3) (1) Post traumatic stress disorder (PTSD) Current Visit: No Status: Chronic Comment: As per self-report. (2) Substance induced mood disorder Current Visit: No Status: Acute (3) Substance-induced sleep disorder Current Visit: Yes Status: Acute (4) Alcohol dependence with uncomplicated withdrawal Current Visit: Yes Status: Acute (5) Cocaine dependence, uncomplicated Current Visit: Yes Status: Acute (6) Nicotine dependence with withdrawal Current Visit: Yes Status: Chronic Qualifiers: Nicotine product type: cigarettes Qualified Code(s): F17.213 - Nicotine dependence, cigarettes, with withdrawal (7) Psoriasis Current Visit: No Status: Chronic - Initial Treatment Plan Initial Treatment Plan: 1) Continue Seroquel 200 mg po HS. 2) Continue inpatient detoxification
[2018-12-01 13:12] LABS: ALBUMIN 3.7 g/dl (3.4-5.0); ALK PHOS 77 U/L (45-117); ANION GAP 8 MMOL/L (8-16); BILIRUBIN,TOTAL 0.4 mg/dL (0.2-1); BLOOD UREA NITROGEN 13 mg/dL (7-18); CALCIUM 8.8 mg/dL (8.5-10.1); CHLORIDE 106 mmol/L (98-107); CO2 27 mmol/L (21-32); GLUCOSE,RANDOM 138 mg/dL (74-106); POTASSIUM 4.4 mmol/L (3.5-5.1); SGOT/AST 15 U/L (15-37); SGPT/ALT 27 U/L (13-61); SODIUM 141 mmol/L (136-145); TOT PROT 6.6 g/dl (6.4-8.2)
[2018-12-01] MEDS: THIAMINE HCL 100 MG TABLET (FP) PO SCH (22:24)
[2018-12-01] MEDS: QUEtiapine FUMARATE 200 MG TABLET PO SCH (22:24)
[2018-12-01] MEDS: NICOTINE POLACRILEX 2 MG GUM BUC PRN (22:27)
[2018-12-02] MEDS: NICOTINE 21 MG/24 HOURS TOPICAL PATCH TD SCH (10:56)
[2018-12-02] MEDS: diazePAM 5 MG TABLET PO SCH ×2 (10:57→23:42)
[2018-12-02] MEDS: PRENATAL VITAMINS W/ FOLIC ACID TABLET (FP) PO SCH (10:57)
--- NOTE | 2018-12-02 11:59 | PN ---
[facility] CIWA - CIWA Score Nausea/Vomitin-No Nausea/No Vomiting Muscle Tremors: 3 Anxiety: 3 Agitation: 3 Paroxysmal Sweats: 3 Orientation: 0-Oriented Tacttile Disturbances: 0-None Auditory Disturbances: 0-None Visual Disturbances: 0-None Headache: 0-None Present CIWA-Ar Total Score: 12 BHS Progress Note (SOAP) Subjective: agitation sweats irritable interrupted sleep Objective: 12/02/18 11:58 Vital Signs Temperature 98.4 F 12/02/18 09:56 Pulse Rate 97 H 12/02/18 09:56 Respiratory Rate 18 12/02/18 09:56 Blood Pressure 137/77 12/02/18 09:56 O2 Sat by Pulse Oximetry (%) Laboratory Tests 12/01/18 12/01/18 12/01/18 08:00 08:00 08:00 WBC 5.8 RBC 4.89 Hgb 15.1 Hct 45.5 MCV 93.1 MCH 31.0 MCHC 33.3 RDW 12.3 Plt Count 217 MPV 9.6 Sodium 141 Potassium 4.4 Chloride 106 Carbon Dioxide 27 Anion Gap 8 BUN 13 Creatinine 1.0 Creat Clearance w eGFR 86.06 Random Glucose 138 H Calcium 8.8 Total Bilirubin 0.4 AST 15 ALT 27 Alkaline Phosphatase 77 Total Protein 6.6 Albumin 3.7 RPR Titer Nonreactive HIV 1&2 Antibody Screen HIV P24 Antigen 12/01/18 08:00 WBC RBC Hgb Hct MCV MCH MCHC RDW Plt Count MPV Sodium Potassium Chloride Carbon Dioxide Anion Gap BUN Creatinine Creat Clearance w eGFR Random Glucose Calcium Total Bilirubin AST ALT Alkaline Phosphatase Total Protein Albumin RPR Titer HIV 1&2 Antibody Screen Negative HIV P24 Antigen Negative aaox3 ambulating no acute distress Assessment: 12/02/18 11:58 withdrawal sx Plan: continue detox increase fluids
[2018-12-02] MEDS: NICOTINE POLACRILEX 2 MG GUM BUC PRN (17:13)
[2018-12-02] MEDS ORDERED: NICOTINE POLACRILEX 4 MG GUM BUC PRN (18:32)
[2018-12-02] MEDS: THIAMINE HCL 100 MG TABLET (FP) PO SCH (22:43)
[2018-12-02] MEDS: QUEtiapine FUMARATE 200 MG TABLET PO SCH (23:44)
[2018-12-03] MEDS ORDERED: diazePAM 5 MG TABLET PO SCH (06:00)
[2018-12-03 06:33] VITALS: BP 112/56; PULSE 73; TEMP 97
--- NOTE | 2018-12-03 10:10 | DS ---
[facility] Detox Discharge Summary Admission Date: 11/30/18 Discharge Date: 12/03/18 - History Present History: Alcohol Dependence, Cocaine Dependence - Physical Exam Results Vital Signs: Vital Signs Temperature 97.0 F L 12/03/18 06:00 Pulse Rate 73 12/03/18 06:00 Respiratory Rate 18 12/03/18 06:00 Blood Pressure 112/56 L 12/03/18 06:00 O2 Sat by Pulse Oximetry (%) - Treatment Hospital Course: Detox Protocol Followed, Detoxed Safely, Responded well, Discharged Condition Good, Rehab Referral Accepted - Medication Discharge Medications: Ambulatory Orders Diclofenac Sodium 75 mg PO BID #14 tablet.dr 10/17/18 hydrOXYzine PAMOATE [Vistaril -] 50 mg PO HS PRN #10 capsule 10/17/18 - Diagnosis (1) Alcohol dependence with uncomplicated withdrawal Status: Chronic (2) Cocaine dependence, uncomplicated Status: Chronic (3) Substance induced mood disorder Status: Acute (4) Substance-induced sleep disorder Status: Acute (5) Nicotine dependence with withdrawal Status: Chronic Qualifiers: Nicotine product type: cigarettes Qualified Code(s): F17.213 - Nicotine dependence, cigarettes, with withdrawal (6) Non compliance w medication regimen Status: Chronic (7) Post traumatic stress disorder (PTSD) Status: Chronic (8) Psoriasis Status: Chronic - AMA Did Patient Leave Against Medical Advice: No (declined; going to his outpatient)
== END 2018-12-03 09:15 | disposition home or self-care (01) | DRG 774 ==
LOC: YASAS 15:36 → Y6N 19:01
PROVIDERS: ADMIT Surgery; ATTEND Surgery
PROC: HZ2ZZZZ Detoxification Services for Substance Abuse Treatment (ICD-10-PCS; principal; 2018-11-30)
DX: F10.230 Alcohol dependence with withdrawal, uncomplicated (principal); F14.20 Cocaine dependence, uncomplicated; F17.213 Nicotine dependence, cigarettes, with withdrawal; F19.24 Other psychoactive substance dependence with psychoactive substance-induced mood disorder; F19.282 Other psychoactive substance dependence with psychoactive substance-induced sleep disorder; F43.10 Post-traumatic stress disorder, unspecified; F32.9 Major depressive disorder, single episode, unspecified; L40.9 Psoriasis, unspecified; Z86.69 Personal history of other diseases of the nervous system and sense organs; Z91.14 Patient's other noncompliance with medication regimen
CPT/HCPCS: 36415; 80053; 85027; 86593; 87389; 93005; 93010

== ENCOUNTER 2019-04-08 00:54 | Inpatient (IN) | payer MEDICARE, OTHER ==
[2019-04-08 01:19] VITALS: BMI 28.7
--- NOTE | 2019-04-08 01:21 | HP ---
CIWA Score Nausea/Vomitin-Int. Nausea w/Dry Heave Muscle Tremors: None Anxiety: 4-Mod. Anxious/Guarded Agitation: 4-Moderately Restless Paroxysmal Sweats: 3 Orientation: 3-Disoriented Date>2 days Tacttile Disturbances: 0-None Auditory Disturbances: 0-None Visual Disturbances: 0-None Headache: 3-Moderate CIWA-Ar Total Score: 21 - Admission Criteria OASAS Guidelines: Admission for Medically Managed Detox: Requires at least one of the followin. CIWA greater than 12 2. Seizures within the past 24 hours 3. Delirium tremens within the past 24 hours 4. Hallucinations within the past 24 hours 5. Acute intervention needed for co occurring medical disorder 6. Acute intervention needed for co occurring psychiatric disorder 7. Severe withdrawal that cannot be handled at a lower level of care (continued vomiting, continued diarrhea, abnormal vital signs) requiring intravenous medication and/or fluids 8. Patient presents the following: CIWA greater than 12 Admission Criteria Met: Admission criteria met Admission ROS S - [facility] Chief Complaint: c/o withdrawal sx's Allergies/Adverse Reactions: Allergies Allergy/AdvReac Type Severity Reaction Status Date / Time No Known Allergies Allergy Verified 04/08/19 01:33 History of Present Illness: 33 Y.O. MALE WITH ALCOHOLISM AND COCAINE DEPENDENCE HERE FOR DETOX. CLIENT IS SELF REFERRED. PRESENTS WITH C/O WITHDRAWAL SX'S. + CIWA, + [employer]. LAST HERE 11/2018. STATES IMMEDIATELY RELAPSED AFTER DC. REPORTS LONGEST CLEAN TIME 6 MONTHS RELPASING 2 WEEKS AGO. DENIES HX/O SEIZURES, DT'S, SI/HI,AVH. DOMICILED , UNEMPLOYED, DENIES LEGALS. PMHX- DENIES PSYCH- ADHD, PTSD Exam Limitations: Intoxication - Ebola screening Have you traveled outside of the country in the last 21 days: No Have you had contact with anyone from an Ebola affected area: No Have you been sick,other than usual withdrawal symptoms: No Do you have a fever: No - Review of Systems Constitutional: Chills, Malaise, Night Sweats, Changes in sleep EENT: reports: No Symptoms Reported Respiratory: reports: Shortness of Breath Cardiac: reports: No Symptoms Reported GI: reports: Nausea, Poor Fluid Intake, Vomiting, Abdominal cramping, Other ( DRY HEAVING) : reports: No Symptoms Reported Musculoskeletal: reports: No Symptoms Reported Integumentary: reports: Flushing, Sweating Neuro: reports: Headache Endocrine: reports: No Symptoms Reported Hematology: reports: No Symptoms Reported Psychiatric: reports: Agitated (IRRTIABLE), Anxious Other Systems: Reviewed and Negative Patient History - Patient Medical History Hx Anemia: No Hx Asthma: No Hx Chronic Obstructive Pulmonary Disease (COPD): No Hx Cancer: No Hx Cardiac Disorders: No Hx Congestive Heart Failure: No Hx Hypertension: No Hx Hypercholesterolemia: No Hx Pacemaker: No HX Cerebrovascular Accident: No Hx Seizures: Yes (NOT SURE) Hx Dementia: No Hx Diabetes: No Hx Gastrointestinal Disorders: No Hx Liver Disease: No Hx Genitourinary Disorders: No Hx Sexually Transmitted Disorders: No Hx Renal Disease (ESRD): No Hx Thyroid Disease: No Hx Human Immunodeficiency Virus (HIV): No Hx Hepatitis C: No Hx Depression: Yes (Has thought of harming self but never tried to do so.) Hx Suicide Attempt: No Hx Bipolar Disorder: No Hx Schizophrenia: No - Patient Surgical History Past Surgical History: No Hx Neurologic Surgery: No Hx Cataract Extraction: No Hx Cardiac Surgery: No Hx Lung Surgery: No Hx Breast Surgery: No Hx Breast Biopsy: No Hx Abdominal Surgery: No Hx Appendectomy: No Hx Cholecystectomy: No Hx Genitourinary Surgery: No Hx Section: No Hx Orthopedic Surgery: No Anesthesia Reaction: No - PPD History Previous Implant?: Yes Documented Results: Negative w/proof Implanted On Prior [facility] Admission?: Yes Date: 04/11/18 Results: 0 PPD to be Administered?: No - Smoking Cessation Smoking history: Current every day smoker Have you smoked in the past 12 months: No Aproximately how many cigarettes per day: 20 Cigars Per Day: 0 Hx Chewing Tobacco Use: No Initiated information on smoking cessation: Yes 'Breaking Loose' booklet given: 04/08/19 - Substance & Tx. History Hx Alcohol Use: Yes Hx Substance Use: Yes Substance Use Type: Alcohol, Cocaine Hx Substance Use Treatment: Yes ([facility]) - Substances abused Alcohol Other (specify): BEER/VODKA Substance route: Oral Frequency: Daily Amount used: 1GALLON Age of first use: 18 Date of last use: 04/07/19 Cocaine Substance route: Smoking (SNIFF) Frequency: Daily Amount used: $1000 Age of first use: 16 Date of last use: 04/07/19 Family Disease History - Family Disease History Family Disease History: Diabetes: Grandparent (pancreatic, thyroid, ), Father, Heart Disease: Grandparent, [place]: Grandparent Admission Physical Exam [facility] - Physical General Appearance: Yes: Moderate Distress, Alcohol on Breath, Intoxicated, Irritable, Sweating, Anxious HEENTM: Yes: EOMI, Normocephalic, Normal Voice, SHERRON, Pharynx Normal, Other ( dry mucous membranes) Respiratory: Yes: Chest Non-Tender, Lungs Clear, Normal Breath Sounds, No Respiratory Distress, No Accessory Muscle Use Neck: Yes: No masses,lesions,Nodules, Supple, Trachea in good position Breast: Yes: Breasts Symetrical Cardiology: Yes: Regular Rhythm, S1, S2, Tachycardia Abdominal: Yes: Normal Bowel Sounds, Non Tender, Soft Genitourinary: Yes: Within Normal Limits Back: Yes: Normal Inspection Extremities: Yes: Normal Capillary Refill, Normal Range of Motion, Non-Tender Neurological: Yes: Alert, Motor Strength 5/5, Depressed Affect Integumentary: Yes: Warm, Moist, Rash (psoriatic patches to knuckles elbows knees) Lymphatic: Yes: Within Normal Limits - Diagnostic (1) Substance induced mood disorder Current Visit: Yes Status: Suspected (2) Alcohol dependence with uncomplicated withdrawal Current Visit: Yes Status: Acute (3) Cocaine dependence, uncomplicated Current Visit: Yes Status: Chronic (4) Nicotine dependence with withdrawal Current Visit: Yes Status: Chronic Qualifiers: Nicotine product type: cigarettes Qualified Code(s): F17.213 - Nicotine dependence, cigarettes, with withdrawal (5) Post traumatic stress disorder (PTSD) Current Visit: Yes Status: Chronic Comment: As per self-report. (6) Psoriasis Current Visit: Yes Status: Chronic (7) Dry mucous membranes Current Visit: Yes Status: Acute Cleared for Admission [facility] - Detox or Rehab [facility] Level of Care: Medically Managed Detox Regimen/Protocol: Librium Claeared for Rehab Admission: No Breathalyzer - Breathalyzer Breathalyzer: 0.099 Urine Drug Screen - Control Is test valid?: Yes - Results Drug screen NEGATIVE: No Urine drug screen results: GILBERTO-Cocaine Inpatient Rehab Admission - Rehab Decision to Admit Inpatient rehab admission?: No
[2019-04-08] MEDS ORDERED: chlordiazePOXIDE HCL 25 MG CAPSULE PO PRN (01:35)
[2019-04-08] MEDS ORDERED: MENTHOL/PHENOL 1 EACH UD MM PRN (01:35)
[2019-04-08] MEDS ORDERED: hydrOXYzine PAMOATE 25 MG CAPSULE (FP) PO PRN (01:35)
[2019-04-08] MEDS ORDERED: METHOCARBAMOL 500 MG TABLET PO PRN (01:35)
[2019-04-08] MEDS ORDERED: DICYCLOMINE HCL 10 MG CAPSULE PO PRN (01:35)
[2019-04-08] MEDS ORDERED: MAGNESIUM HYDROX 2400MG/30ML ORAL SUSPENSION 30 ML CUP PO PRN (01:35)
[2019-04-08] MEDS ORDERED: P-EPHED 60MG/TRIPROLIDI 2.5MG TABLET PO PRN (01:35)
[2019-04-08] MEDS ORDERED: guaiFENesin 200 MG/10 ML 10 ML UNIT-DOSE CUPS PO PRN (01:35)
[2019-04-08] MEDS ORDERED: chlordiazePOXIDE HCL 25 MG CAPSULE PO ONE (01:35)
[2019-04-08] MEDS ORDERED: MAGNESIUM CITRATE 300 ML BOTTLE PO PRN (01:35)
[2019-04-08] MEDS ORDERED: NICOTINE POLACRILEX 2 MG GUM BUC PRN (01:35)
[2019-04-08] MEDS ORDERED: ACETAMINOPHEN 325 MG TABLET (FP) PO PRN ×2 (01:35)
[2019-04-08] MEDS ORDERED: IBUPROFEN 400 MG TABLET (FP) PO PRN (01:35)
[2019-04-08] MEDS ORDERED: MELATONIN 5 MG TABLETS PO PRN (01:35)
[2019-04-08] MEDS ORDERED: BISMUTH SUBSALICYLATE 524 MG/30 ML UD PO PRN (01:35)
[2019-04-08] MEDS ORDERED: MAG HYDROX/AL HYDROX/SIMETH 30 ML UNIT-DOSE CUP PO PRN (01:35)
[2019-04-08] MEDS ORDERED: TRIMETHOBENZAMIDE HCL 200MG/2ML INJ IM PRN (01:38)
[2019-04-08] MEDS ORDERED: LORazepam 2 MG/ML SDV VIAL IM ONE (01:56)
[2019-04-08] MEDS: chlordiazePOXIDE HCL 25 MG CAPSULE PO SCH ×2 (06:46→10:41)
[2019-04-08 09:28] VITALS: BP 127/80; TEMP 98.1
[2019-04-08 09:56] LABS: HEMATOCRIT 45.4 % (35.4-49); MCH 31.9 pg (25.7-33.7); MCHC 35.1 g/dl (32.0-35.9); MEAN CELL VOLUME 90.9 fl (80-96); MEAN PLT VOLUME 8.6 fl (7.5-11.1); WHITE BLOOD COUNT 9.2 K/mm3 (4.0-10.0)
[2019-04-08] MEDS ORDERED: NICOTINE 21 MG/24 HOURS TOPICAL PATCH TD SCH (10:00)
[2019-04-08] MEDS ORDERED: PRENATAL VITAMINS W/ FOLIC ACID TABLET (FP) PO SCH (10:00)
[2019-04-08 10:18] LABS: ALBUMIN 4.2 g/dl (3.4-5.0); BILIRUBIN,TOTAL 0.6 mg/dL (0.2-1); BLOOD UREA NITROGEN 9.4 mg/dL (7-18); CALCIUM 9.1 mg/dL (8.5-10.1); CREATININE 0.8 mg/dL (0.55-1.3); PLATELET COUNT 236 K/MM3 (134-434); POTASSIUM 3.8 mmol/L (3.5-5.1); TOT PROT 7.7 g/dl (6.4-8.2)
[2019-04-08 12:55] VITALS: PULSE 94
--- NOTE | 2019-04-08 18:21 | PN ---
S CIWA - CIWA Score Nausea/Vomitin-No Nausea/No Vomiting Muscle Tremors: 3 Anxiety: 4-Mod. Anxious/Guarded Agitation: 4-Moderately Restless Paroxysmal Sweats: 2 Orientation: 0-Oriented Tacttile Disturbances: 0-None Auditory Disturbances: 2-Mild Harshness/Frighten Visual Disturbances: 1-Very Mild Sensitivity Headache: 0-None Present CIWA-Ar Total Score: 16 BHS Progress Note (SOAP) Subjective: Anxious, Restless, Tremors, Body Aches, Interrupted Sleep. Objective: PATIENT A & O X 3, OBSERVED AMBULATING ON UNIT UNASSISTED. IN NO ACUTE DISTRESS. 04/08/19 18:20 Vital Signs Temperature 98.1 F 04/08/19 09:27 Pulse Rate 94 H 04/08/19 12:30 Respiratory Rate 18 04/08/19 12:30 Blood Pressure 127/80 04/08/19 09:27 O2 Sat by Pulse Oximetry (%) Laboratory Tests 04/08/19 04/08/19 04/08/19 07:00 07:00 07:00 WBC 9.2 RBC 5.00 Hgb 16.0 Hct 45.4 MCV 90.9 MCH 31.9 MCHC 35.1 RDW 12.0 Plt Count 236 MPV 8.6 D Sodium 139 Potassium 3.8 Chloride 101 Carbon Dioxide 30 Anion Gap 7 L BUN 9.4 Creatinine 0.8 Est GFR (CKD-EPI)AfAm 136.03 Est GFR (CKD-EPI)NonAf 117.37 Random Glucose 90 Calcium 9.1 Total Bilirubin 0.6 AST 28 ALT 37 Alkaline Phosphatase 109 Total Protein 7.7 Albumin 4.2 RPR Titer Nonreactive LABS NOTED. Assessment: 04/08/19 18:21 WITHDRAWAL SYMPTOMS. Plan: CONTINUE DETOX.
--- NOTE | 2019-04-08 18:25 | DS ---
[facility] Detox Discharge Summary Admission Date: 04/08/19 Discharge Date: 04/08/19 - History Present History: Alcohol Dependence, Cocaine Dependence Additional Comments: DESPITE EFFORTS BY INSURANCE CLAIMS PROCESSOR AND BY NURSING STAFF TO ADDRESS PATIENT'S MEDICAL NEEDS / CONCERNS, PATIENT DOES NOT WISH TO REMAIN TO COMPLETE DETOX REGIMEN. RISKS OF LEAVING DETOX UNIT AGAINST MEDICAL ADVICE AND PRIOR TO COMPLETION OF DETOX REGIMEN EXPLAINED TO PATIENT. PATIENT ADVISED TO GO IMMEDIATELY TO NEAREST ER SHOULD ANY INTOLERABLE WITHDRAWAL / DETOX SYMPTOMS DEVELOP AT ANY TIME. PATIENT VERBALIZED UNDERSTANDING OF ALL INFORMATION / RECOMMENDATIONS PRESENTED TO HIM PRIOR TO DEPARTURE FROM DETOX UNIT. PATIENT LEFT DETOX UNIT IN STABLE MEDICAL CONDITION. Pertinent Past History: History Of Psoriasis, History Of Attention-Deficit Hyperactivity Disorder, History Of Post-Traumatic Stress disorder, Depression, Nicotine Dependence. - Physical Exam Results Vital Signs: Vital Signs Temperature 98.1 F 04/08/19 09:27 Pulse Rate 94 H 04/08/19 12:30 Respiratory Rate 18 04/08/19 12:30 Blood Pressure 127/80 04/08/19 09:27 O2 Sat by Pulse Oximetry (%) Pertinent Admission Physical Exam Findings: WITHDRAWAL SYMPTOMS. Laboratory Tests 04/08/19 04/08/19 04/08/19 07:00 07:00 07:00 WBC 9.2 RBC 5.00 Hgb 16.0 Hct 45.4 MCV 90.9 MCH 31.9 MCHC 35.1 RDW 12.0 Plt Count 236 MPV 8.6 D Sodium 139 Potassium 3.8 Chloride 101 Carbon Dioxide 30 Anion Gap 7 L BUN 9.4 Creatinine 0.8 Est GFR (CKD-EPI)AfAm 136.03 Est GFR (CKD-EPI)NonAf 117.37 Random Glucose 90 Calcium 9.1 Total Bilirubin 0.6 AST 28 ALT 37 Alkaline Phosphatase 109 Total Protein 7.7 Albumin 4.2 RPR Titer Nonreactive LABS NOTED. - Medication Discharge Medications: Ambulatory Orders Quetiapine Fumarate [Seroquel] 200 tab PO HS 04/08/19 - Diagnosis (1) Alcohol dependence with uncomplicated withdrawal Status: Acute (2) Dry mucous membranes Status: Acute (3) Cocaine dependence, uncomplicated Status: Chronic (4) Nicotine dependence with withdrawal Status: Chronic Qualifiers: Nicotine product type: cigarettes Qualified Code(s): F17.213 - Nicotine dependence, cigarettes, with withdrawal (5) Post traumatic stress disorder (PTSD) Status: Chronic (6) Psoriasis Status: Chronic (7) Substance induced mood disorder Status: Suspected - AMA Did Patient Leave Against Medical Advice: Yes (PATIENT DID NOT WISH TO REMAIN TO COMPLETE DETOX REGIMEN.)
[2019-04-08] MEDS ORDERED: THIAMINE HCL 100 MG TABLET (FP) PO SCH (22:00)
[2019-04-09] MEDS ORDERED: chlordiazePOXIDE HCL 25 MG CAPSULE PO SCH (05:00)
[2019-04-10] MEDS ORDERED: chlordiazePOXIDE HCL 10 MG CAPSULE PO PRN
[2019-04-10] MEDS ORDERED: chlordiazePOXIDE HCL 10 MG CAPSULE PO SCH (05:00)
[2019-04-11] MEDS ORDERED: chlordiazePOXIDE HCL 10 MG CAPSULE PO SCH (05:00)
[2019-04-12] MEDS ORDERED: chlordiazePOXIDE HCL 10 MG CAPSULE PO ONE (05:00)
== END 2019-04-08 12:15 | disposition left against medical advice (07) | DRG 770 ==
LOC: YASAS 00:54 → Y3N 01:23
PROVIDERS: ADMIT Surgery; ATTEND Surgery
PROC: HZ2ZZZZ Detoxification Services for Substance Abuse Treatment (ICD-10-PCS; principal; 2019-04-08)
DX: F10.230 Alcohol dependence with withdrawal, uncomplicated (principal); F14.20 Cocaine dependence, uncomplicated; F17.213 Nicotine dependence, cigarettes, with withdrawal; F43.10 Post-traumatic stress disorder, unspecified; L40.9 Psoriasis, unspecified; R68.2 Dry mouth, unspecified
CPT/HCPCS: 36415; 80053; 85027; 86593

== ENCOUNTER 2019-04-16 21:05 | Emergency (ER) | payer MEDICARE, OTHER ==
[2019-04-16 21:35] VITALS: TEMP 98.4; BMI 27.2
[2019-04-16] MEDS ORDERED: ACETAMINOPHEN 1000 MG/100 ML VIAL (NON FORMULARY) IVPB ONE (21:35)
[2019-04-16] MEDS ORDERED: SODIUM CHLORIDE 0.9% 500 ML INFUS.BAG IV ONE (21:35)
[2019-04-16] MEDS ORDERED: ACETAMINOPHEN INJECTION 100 ML IVPB ONE (21:36)
[2019-04-16] MEDS ORDERED: LORazepam 2 MG/ML SDV VIAL ONE (21:36)
--- NOTE | 2019-04-16 21:43 | PDOC ---
Documentation entered by Ayde Hoffman SCRIBE, acting as scribe for Katerine Perdomo MD. Katerine Perdomo MD: This documentation has been prepared by the [employer] senior Xhesika, SCRIBE, under my direction and personally reviewed by me in its entirety. I confirm that the documentation accurately reflects all work, treatment, procedures, and medical decision making performed by me. Attending Attestation - Resident Resident Name: Zac Hayes - ED Attending Attestation I have performed the following: I have examined & evaluated the patient, The case was reviewed & discussed with the resident, I agree w/resident's findings & plan, Exceptions are as noted - HPI HPI: 04/16/19 21:35 The patient is a 33 year old male with a significant PMH of Psoriasis, Attention -Deficit Hyperactivity Disorder, Post-Traumatic Stress Disorder, Depression, Nicotine Dependence, and substance abuse (cocaine and alcohol) who presents to the emergency department with 48hrs of bilateral foot blisters and foot pain radiating up his legs and chest. Patient states he has been on a 4 day crack/ cocaine smoking binge and has been walking all day for the past 48hrs with his last use 16hrs ago. Patient states he has been drinking a lot of fluids, however, he has not eaten food in the last 2 days. The patient denies chest pain, shortness of breath, headache and dizziness. Denies fever, chills, cough, nausea, vomiting, diarrhea and constipation. Denies dysuria, frequency, urgency and hematuria. Allergies: NKDA Social history: Nicotine Dependence, and substance abuse (cocaine and alcohol) PCP: Billy Hussein - Physicial Exam PE: 04/16/19 22:00 awake alert lungs clear bilat heart rrr no mrg abd soft nt nd ext wwp.. no calf tenderness. soft. 2 + dp/ pt pulses bilat. no leg erythema. bilat plantar ant fat pad with callus/ blisterd. intact skin. no exudate. no purulence. nuero alert oriented x 3. pt fidgety, hyper, rapid speech. but directable. - Medical Decision Making 04/16/19 22:01 33 yo male here with cocain intox, blistering to both feet. plan r/o rhabdomyolysis. hydration. benzo to counteract intox. lisseth vu home. supportive foot care. soaks, bacitracin. 04/16/19 23:17 pt with mild rhabdo. total CK <5000. given 2 L NS. sleeping comfortably. d/w pt and his girlfriend on awakening regarding lab results. would like to go home.
--- NOTE | 2019-04-16 21:52 | PDOC ---
History of Present Illness - History of Present Illness Initial Comments: Mr. Betancur is a 33 y/o male with PMH significant for ADHD, PTSD, substance abuse, and multiple detox programs. Presents today with bilateral foot pain that started two days ago. Reports that he has been on a drug binge smoking cocaine since Thursday. [facility] States that the pain is over the balls of his feet. States that there are blisters under both of his feet. Reports that the pain radiates up his legs and hurts all over. Reports he has smoked over "$200 of cocaine" over the past 3 days. Denies fever, denies shortness of breath, denies chest pain, denies changes in urine. <Zac Hayes - Last Filed: 04/16/19 21:58> <Katerine Perdomo - Last Filed: 04/17/19 00:12> - General Chief Complaint: Substance Abuse Stated Complaint: FOOT BLISTERS Time Seen by Provider: 04/16/19 21:23 Past History - Past Medical History Anemia: No Asthma: No Cancer: No Cardiac Disorders: No CVA: No COPD: No CHF: No Dementia: No Diabetes: No GI Disorders: No Disorders: No HTN: No Hypercholesterolemia: No Kidney Stones: No Liver Disease: No Psychiatric Problems: Yes Seizures: Yes (NOT SURE) Thyroid Disease: No - Surgical History Abdominal Surgery: No Appendectomy: No Cardiac Surgery: No Cholecystectomy: No Lung Surgery: No Neurologic Surgery: No Orthopedic Surgery: No - Reproductive History Testicular Surgery: No - Suicide/Smoking/Psychosocial Hx Smoking History: Current every day smoker Have you smoked in the past 12 months: Yes Number of Cigarettes Smoked Daily: 20 Cigars Per Day: 0 Information on smoking cessation initiated: Yes 'Breaking Loose' booklet given: 04/10/19 Hx Alcohol Use: Yes Drug/Substance Use Hx: Yes (COCAINE, MARIJUANA) Substance Use Type: Alcohol, Cocaine Hx Substance Use Treatment: Yes ([facility]) <Zac Hayes - Last Filed: 04/16/19 21:58> <Katerine Perdomo - Last Filed: 04/17/19 00:12> - Past Medical History Allergies/Adverse Reactions: Allergies Allergy/AdvReac Type Severity Reaction Status Date / Time No Known Allergies Allergy Verified 04/10/19 10:11 Home Medications: Ambulatory Orders Quetiapine Fumarate [Seroquel] 200 tab PO HS 04/08/19 Review of Systems - Review of Systems Comments:: ROS GENERAL/CONSTITUTIONAL: No fever or chills. No weakness._ HEAD, EYES, EARS, NOSE AND THROAT: No change in vision. No ear pain or discharge. No sore throat._ CARDIOVASCULAR: No chest pain or shortness of breath_ RESPIRATORY: Denies cough, hemoptysis_ GASTROINTESTINAL: No nausea, vomiting, diarrhea or constipation._ GENITOURINARY: No dysuria, frequency, or change in urination._ MUSCULOSKELETAL: No neck or back pain. Reports bilateral foot pain that radiates up the legs. SKIN: No rash_ NEUROLOGIC: No headache, vertigo, loss of consciousness, or change in strength/ sensation._ ENDOCRINE: No increased thirst. No abnormal weight change_ HEMATOLOGIC/LYMPHATIC: No anemia, easy bleeding, or history of blood clots._ ALLERGIC/IMMUNOLOGIC: No hives or skin allergy._ <Zac Hayes - Last Filed: 04/16/19 21:58> *Physical Exam - Vital Signs Last Vital Signs Temp Pulse Resp BP Pulse Ox 98.4 F 114 H 22 H 133/113 H 96 04/16/19 21:13 04/16/19 21:13 04/16/19 21:13 04/16/19 21:13 04/16/19 21:13 - Physical Exam Comments: GENERAL: Awake, alert, and oriented to person/place/time. Agitated. HEAD: No signs of trauma, normocephalic, atraumatic _ EYES: PERRLA, EOMI, sclera anicteric, conjunctiva clear_ ENT: Hearing grossly normal, nares patent, oropharynx clear without exudates. No uvular deviation. Moist mucosa_ NECK: Normal ROM, supple, no lymphadenopathy, JVD, or masses_ LUNGS: No distress, speaks in full sentences, clear to auscultation bilaterally _ HEART: Regular rate and rhythm, normal S1 and S2, no murmurs appreciated, peripheral pulses normal and equal bilaterally._ ABDOMEN: Soft, nontender, normoactive bowel sounds. No guarding, no rebound. No masses_ EXTREMITIES: Normal range of motion, no edema. No clubbing or cyanosis. Blisters on bilateral soles of feet without bleeding or discharge or signs of infection. No objective tenderness appreciated but exam is limited 2/2 patient' s stated pain. NEUROLOGICAL: Cranial nerves II through XII grossly intact. Normal speech, normal gait, no focal sensorimotor deficits _ SKIN: Warm, Dry, normal turgor, no rashes or lesions noted_ <Zac Hayes - Last Filed: 04/16/19 21:58> - Vital Signs Last Vital Signs Temp Pulse Resp BP Pulse Ox 98.4 F 94 H 14 122/77 98 04/16/19 21:13 04/16/19 23:19 04/16/19 23:19 04/16/19 23:19 04/16/19 23:19 <Katerine Perdomo - Last Filed: 04/17/19 00:12> ED Treatment Course - LABORATORY CBC & Chemistry Diagram: 04/16/19 21:45 04/16/19 21:45 <Zac Hayes - Last Filed: 04/16/19 21:58> - LABORATORY CBC & Chemistry Diagram: 04/16/19 21:45 04/16/19 21:45 - ADDITIONAL ORDERS Additional order review: Laboratory Results 04/16/19 21:45 Sodium 139 Potassium 3.9 Chloride 101 Carbon Dioxide 32 Anion Gap 6 L BUN 19.0 H Creatinine 1.1 Est GFR (CKD-EPI)AfAm 101.69 Est GFR (CKD-EPI)NonAf 87.74 Random Glucose 103 Calcium 9.3 Total Bilirubin 0.4 AST 71 H ALT 44 Alkaline Phosphatase 75 Creatine Kinase 1896 H Creatine Kinase Index 1.2 CK-MB (CK-2) 22.8 H Total Protein 6.6 Albumin 3.9 04/16/19 21:45 RBC 4.51 MCV 91.9 MCHC 34.1 RDW 11.0 L MPV 8.5 Neutrophils % 46.1 Lymphocytes % 36.0 Monocytes % 14.0 H Eosinophils % 3.2 Basophils % 0.7 - Medications Given in the ED: ED Medications Discontinued Medications Generic Name Dose Route Start Last Admin Trade Name Freq PRN Reason Stop Dose Admin Acetaminophen 1,000 mg 04/16/19 21:35 04/16/19 21:45 Ofirmev Injection - IVPB 04/16/19 21:36 1,000 mg ONCE ONE Administration Lorazepam 1 mg 04/16/19 21:35 04/16/19 21:42 Ativan Injection - IVPUSH 04/16/19 21:36 1 mg ONCE ONE Administration Sodium Chloride 1,000 ml 04/16/19 21:35 04/16/19 21:40 Normal Saline - IV 04/16/19 21:36 1,000 ml ONCE ONE Administration Sodium Chloride 1,000 ml 04/16/19 22:27 04/16/19 22:37 Normal Saline - IV 04/16/19 22:28 1,000 ml ONCE ONE Administration <Katerine Perdomo - Last Filed: 04/17/19 00:12> Medical Decision Making - Medical Decision Making 04/16/19 21:45 33M with hx of substance use and PTSD presenting after 3 days of cocaine binge. States that there is bilateral foot pain that radiates up legs and into whole body. Blisters appreciated on bilateral feet but no signs of bleeding/infection. Patient is very agitated at bedside with pressured speech. Obtain CBC, CMP, CK. Will give fluids, tylenol, ativan. <Zac Hayes - Last Filed: 04/16/19 21:58> *DC/Admit/Observation/Transfer <Zac Hayes - Last Filed: 04/16/19 21:58> - Discharge Dispostion Decision to Admit order: No <Katerine Perdomo - Last Filed: 04/17/19 00:12> Diagnosis at time of Disposition: Cocaine dependence, uncomplicated, Rhabdomyolysis - Discharge Dispostion Disposition: HOME Condition at time of disposition: Improved - Referrals Referrals: Billy Baker [Primary Care Provider] - - Patient Instructions Printed Discharge Instructions: Rhabdomyolysis, Cocaine Use Disorder Additional Instructions: you need to stop using cocaine. you should follow up with your primary doctor. drink plenty of fluids. return for any problems or concerns. - Post Discharge Activity
[2019-04-16 22:07] LABS: BASO % 0.7 % (0-2.0); EOS % 3.2 % (0-4.5); HEMATOCRIT 41.5 % (35.4-49); HEMOGLOBIN 14.2 GM/dl (11.7-16.9); MCH 31.4 pg (25.7-33.7); MCHC 34.1 g/dl (32.0-35.9); MEAN CELL VOLUME 91.9 fl (80-96); MEAN PLT VOLUME 8.5 fl (7.5-11.1); NEUT % 46.1 % (42.8-82.8); PLATELET COUNT 247 K/MM3 (134-434); RBC 4.51 M/mm3 (4.00-5.60); WHITE BLOOD COUNT 9.3 K/mm3 (4.0-10.8)
[2019-04-16 22:14] LABS: ALBUMIN 3.9 g/dl (3.4-5.0); BILIRUBIN,TOTAL 0.4 mg/dl (0.2-1); CALCIUM 9.3 mg/dl (8.5-10); CREATININE 1.1 mg/dl (0.55-1.3); POTASSIUM 3.9 mmol/L (3.5-5.1); TOT PROT 6.6 g/dl (6.4-8.2)
[2019-04-16] MEDS ORDERED: SODIUM CHLORIDE 0.9% 1000 ML INFUS.BAG IV ONE (22:27)
[2019-04-16 23:20] VITALS: BP 122/77; PULSE 94
== END 2019-04-16 23:25 | disposition home or self-care (01) ==
LOC: FER 21:05
PROC: 3E033NZ Introduction of Analgesics, Hypnotics, Sedatives into Peripheral Vein, Percutaneous Approach (ICD-10-PCS; principal; 2019-04-16)
PROC: 3E0337Z Introduction of Electrolytic and Water Balance Substance into Peripheral Vein, Percutaneous Approach (ICD-10-PCS; 2019-04-16)
DX: F11.20 Opioid dependence, uncomplicated (principal); M62.82 Rhabdomyolysis; F43.10 Post-traumatic stress disorder, unspecified; F17.210 Nicotine dependence, cigarettes, uncomplicated; F90.9 Attention-deficit hyperactivity disorder, unspecified type
CPT/HCPCS: 36415; 80053; 82550; 82553; 85025; 99284-25; J0131; J7030

== ENCOUNTER 2019-09-07 08:11 | Inpatient (IN) | payer OTHER ==
[2019-09-07 08:59] VITALS: BMI 31.2
--- NOTE | 2019-09-07 09:08 | HP ---
CIWA Score - Admission Criteria [facility] Guidelines: Admission for Medically Managed Detox: Requires at least one of the followin. CIWA greater than 12 2. Seizures within the past 24 hours 3. Delirium tremens within the past 24 hours 4. Hallucinations within the past 24 hours 5. Acute intervention needed for co occurring medical disorder 6. Acute intervention needed for co occurring psychiatric disorder 7. Severe withdrawal that cannot be handled at a lower level of care (continued vomiting, continued diarrhea, abnormal vital signs) requiring intravenous medication and/or fluids 8. Admitting History and Physical - Admission Chief Complaint: " I DON'T WANT TO . " History of Present Illness: 33 Y.O. MALE WITH ALCOHOL DEPENDENCE WITH INTOXICATION AND COCAINE DEPENDENCE HERE FOR DETOX. CLIENT IS SELF REFERRED. PRESENTS WITH C/O WITHDRAWAL SX'S. + CIWA, + EYE HIGH SCALER THIS MORNING AT 1AM BUT HE HAD 2 PINTS OF VODKA YESTERDAY. LAST HERE 04/2019 BUT STAYED ONLY FOR 2 DAYS. HE STATES HE WILL REMAIN FOR FULL DETOX AND IS WILLING TO SIGN BEHAVIORAL CONTRACT FOR THE REMAINDER OF THE STAY. STATES IMMEDIATELY RELAPSED AFTER DC. REPORTS LONGEST CLEAN TIME 6 MONTHS RELAPSING 2 WEEKS AGO. DENIES HX/O SEIZURES, DT'S, SI/HI,AVH. UNDOMICILED, UNEMPLOYED, DENIES LEGALS. HE USED CRACK THIS MORNING BUT BELIEVES IT WAS ACTUALLY METAMPHETAMINE. PMH: NONE PSURG: NONE PSYCH: NONE History Source: Patient Limitations to Obtaining History: No Limitations - Smoking History Smoking history: Current every day smoker Have you smoked in the past 12 months: Yes Aproximately how many cigarettes per day: 20 - Alcohol/Substance Use Hx Alcohol Use: Yes Admission [facility] - [facility] Allergies/Adverse Reactions: Allergies Allergy/AdvReac Type Severity Reaction Status Date / Time No Known Allergies Allergy Verified 09/07/19 08:50 Exam Limitations: No Limitations - Ebola screening Have you traveled outside of the country in the last 21 days: No (N) Have you had contact with anyone from an Ebola affected area: No Have you been sick,other than usual withdrawal symptoms: No Do you have a fever: No - Review of Systems Constitutional: Diaphoresis, Night Sweats EENT: reports: No Symptoms Reported Respiratory: reports: No Symptoms reported Cardiac: reports: No Symptoms Reported GI: reports: No Symptoms Reported : reports: No Symptoms Reported Musculoskeletal: reports: No Symptoms Reported Integumentary: reports: No Symptoms Reported Neuro: reports: No Symptoms reported Endocrine: reports: No Symptoms Reported Hematology: reports: No Symptoms Reported Psychiatric: reports: Judgement Intact, Mood/Affect Appropiate, Orientated x3 Other Systems: Reviewed and Negative Patient History - Patient Medical History Hx Anemia: No Hx Asthma: No Hx Chronic Obstructive Pulmonary Disease (COPD): No Hx Cancer: No Hx Cardiac Disorders: No Hx Congestive Heart Failure: No Hx Hypertension: No Hx Hypercholesterolemia: No Hx Pacemaker: No HX Cerebrovascular Accident: No Hx Seizures: No Hx Dementia: No Hx Diabetes: No Hx Gastrointestinal Disorders: No Hx Liver Disease: No Hx Genitourinary Disorders: No Hx Sexually Transmitted Disorders: No Hx Renal Disease (ESRD): No Hx Thyroid Disease: No Hx Human Immunodeficiency Virus (HIV): No Hx Hepatitis C: No Hx Depression: Yes (Has thought of harming self but never tried to do so.) Hx Suicide Attempt: No Hx Bipolar Disorder: No Hx Schizophrenia: No - Patient Surgical History Past Surgical History: No Hx Neurologic Surgery: No Hx Cataract Extraction: No Hx Cardiac Surgery: No Hx Lung Surgery: No Hx Breast Surgery: No Hx Breast Biopsy: No Hx Abdominal Surgery: No Hx Appendectomy: No Hx Cholecystectomy: No Hx Genitourinary Surgery: No Hx Section: No Hx Orthopedic Surgery: No Anesthesia Reaction: No - PPD History Previous Implant?: Yes Documented Results: Negative w/proof Implanted On Prior [facility] Admission?: Yes Date: 04/11/19 Results: 0 PPD to be Administered?: No - Smoking Cessation Smoking history: Current every day smoker Have you smoked in the past 12 months: Yes Aproximately how many cigarettes per day: 20 Cigars Per Day: 0 Hx Chewing Tobacco Use: No Initiated information on smoking cessation: Yes 'Breaking Loose' booklet given: 09/07/19 - Substances abused Alcohol Other (specify): BEER/VODKA Substance route: Oral Frequency: Daily Amount used: 1GALLON Age of first use: 18 Date of last use: 09/06/19 Cocaine Other (specify): CRACK/COCAINE Substance route: Smoking Frequency: Daily Amount used: $1000/4DAYS Age of first use: 16 Date of last use: 09/06/19 Methamphetamine Substance route: Smoking Frequency: Daily Amount used: BINGED LOTS OF IT Date of last use: 09/07/19 Admission Physical Exam [facility] - Vital Signs Vital Signs: Vital Signs - 24 hr 09/07/19 08:55 Temperature 97.8 F Pulse Rate 110 H Respiratory 22 H Rate Blood Pressure 150/100 - Physical General Appearance: Yes: Moderate Distress, Tremorous, Irritable, Sweating, Anxious HEENTM: Yes: EOMI, Hearing grossly Normal, Normal ENT Inspection, Normocephalic , Normal Voice, SHERRON, Pharynx Normal, Tm's normal Respiratory: Yes: Chest Non-Tender, Lungs Clear, Normal Breath Sounds, No Respiratory Distress, No Accessory Muscle Use Neck: Yes: No masses,lesions,Nodules, Supple, Trachea in good position Breast: Yes: Within Normal Limits Cardiology: Yes: Regular Rhythm, S1, S2, Tachycardia Abdominal: Yes: Increased Bowel Sounds Genitourinary: Yes: Within Normal Limits Back: Yes: Normal Inspection Musculoskeletal: Yes: full range of Motion, Gait Steady, Pelvis Stable Extremities: Yes: Normal Capillary Refill, Normal Inspection, Normal Range of Motion, Non-Tender Neurological: Yes: nuclear medicine pet ct technologist II-XII NML intact, Fully Oriented, Alert, Motor Strength 5/5, Normal Mood/Affect, Normal Response Integumentary: Yes: Normal Color, Warm Lymphatic: Yes: Within Normal Limits - Diagnostic (1) Alcohol dependence with uncomplicated withdrawal Current Visit: Yes Status: Acute (2) Cocaine dependence, uncomplicated Current Visit: Yes Status: Chronic (3) Post traumatic stress disorder (PTSD) Current Visit: Yes Status: Chronic Comment: As per self-report. Cleared for Admission [facility] - Detox or Rehab [facility] Level of Care: Medically Managed Detox Regimen/Protocol: Librium Claeared for Rehab Admission: No Screened but not Admitted - Documentation of Visit Screened but not Admitted: Yes Left Prior to Completion of Assessment: No Insurance Authorization Denied: No Patient Does Not Meet Criteria for Admission: No Level of Care Recommended at this Time: ER Evaluation/Care Additional Information/Explanation: PATIENT IS HYPERACTIVE, HYPERVENTILATING, HYPERTENSIVE AND TACHYCARDIC. METAMPHETAMINE INTOXICATION. SENT TO [facility] FOR EVALUATION AND STABILIZATION. Breathalyzer - Breathalyzer Breathalyzer: 0 Urine Drug Screen - Test Device Lot number: [id number] Expiration date: 12/25/20 - Control Is test valid?: Yes - Results Drug screen NEGATIVE: No Urine drug screen results: GILBERTO-Cocaine Inpatient Rehab Admission - Rehab Decision to Admit Inpatient rehab admission?: No
--- NOTE | 2019-09-07 17:06 | PN ---
S CIWA - CIWA Score Nausea/Vomitin-No Nausea/No Vomiting Muscle Tremors: 4-Moderate,w/Arms Extend Anxiety: 0-No Anxiety, at Ease Agitation: 0-Normal Activity Paroxysmal Sweats: 3 Tacttile Disturbances: 0-None Auditory Disturbances: 0-None Visual Disturbances: 0-None Headache: 0-None Present [facility] Progress Note (SOAP) Subjective: States I drink 2 pints alcohol every day and I smoke a lot of crack. Objective: Returned from [facility] ED after being sent to ED evaluation for Awakens and responds to questions, then falls back to sleep.
--- NOTE | 2019-09-07 17:56 | PN ---
[facility] Progress Note Note: Patient returned from [facility] ED after being sent to ED earlier today for evaluation. Patient still somnolent but awakens and responds to questions, then falls back to sleep. Becomes agitated when awakened. States drinks 2 pints vodka daily. Gait unsteady. [facility] and [facility] ED ROS and PE reviewed. UTox from earlier presentation + GILBERTO only. Repeat UTox: + GILBERTO/ faint BZo. DARIO: from earlier presentation: 0.0 and remains 0.0 Patient received Ativan in ED. Current CIWA is 13. (Tremors= 7/Increased facial moisture=3, Agitation = 3) B/P: 122/82 HR: 91 T: 99.8 Home less w/ MH meds - but denies depression. Assess: Alcohol withdrawal Cocaine use disorder Fall risk Plan: Admit to detox on Libruim protocol. Fall risk order. Encourage fluids Psych referral
[2019-09-07] MEDS ORDERED: MAGNESIUM HYDROX 2400MG/30ML ORAL SUSPENSION 30 ML CUP PO PRN (18:23)
[2019-09-07] MEDS ORDERED: BISMUTH SUBSALICYLATE 524 MG/30 ML UD PO PRN (18:23)
[2019-09-07] MEDS ORDERED: IBUPROFEN 400 MG TABLET (FP) PO PRN (18:23)
[2019-09-07] MEDS ORDERED: chlordiazePOXIDE HCL 10 MG CAPSULE PO PRN (18:23)
[2019-09-07] MEDS ORDERED: ACETAMINOPHEN 325 MG TABLET (FP) PO PRN ×2 (18:23)
[2019-09-07] MEDS ORDERED: MAG HYDROX/AL HYDROX/SIMETH 30 ML UNIT-DOSE CUP PO PRN (18:23)
[2019-09-07] MEDS ORDERED: MAGNESIUM CITRATE 300 ML BOTTLE PO PRN (18:23)
[2019-09-07] MEDS ORDERED: METHOCARBAMOL 500 MG TABLET PO PRN (18:23)
[2019-09-07] MEDS ORDERED: MENTHOL/PHENOL 1 EACH UD MM PRN (18:23)
[2019-09-07] MEDS ORDERED: chlordiazePOXIDE HCL 25 MG CAPSULE PO ONE (18:40)
[2019-09-07] MEDS ORDERED: MELATONIN 5 MG TABLETS PO PRN (22:00)
[2019-09-07] MEDS ORDERED: THIAMINE HCL 100 MG TABLET (FP) PO SCH (22:00)
[2019-09-07] MEDS: chlordiazePOXIDE HCL 25 MG CAPSULE PO SCH (22:22)
[2019-09-08] MEDS: chlordiazePOXIDE HCL 25 MG CAPSULE PO SCH (05:48)
[2019-09-08 09:10] VITALS: BP 139/83; PULSE 88; TEMP 98.9
[2019-09-08] MEDS ORDERED: cloNIDine HCL 0.1 MG TABLET PO PRN (09:44)
--- NOTE | 2019-09-08 09:49 | PN ---
S CIWA - CIWA Score Nausea/Vomitin-No Nausea/No Vomiting Muscle Tremors: 3 Anxiety: 3 Agitation: 1-Slight > Activity Paroxysmal Sweats: 2 Orientation: 2-Disoriented Date<2 days (date of week time of day) Tacttile Disturbances: 0-None Auditory Disturbances: 1-Very Mild Visual Disturbances: 0-None Headache: 0-None Present CIWA-Ar Total Score: 12 [facility] Progress Note (SOAP) Subjective: 33 years old male admitted on 09/07/19 for alcohol withdrawal sx management treating with librium detox regimen irritable agitative at time but follow direction calm return to his room Objective: 09/08/19 09:49 Vital Signs Temperature 98.9 F 09/08/19 09:10 Pulse Rate 88 09/08/19 09:10 Respiratory Rate 18 09/08/19 09:10 Blood Pressure 139/83 09/08/19 09:10 O2 Sat by Pulse Oximetry (%) 09/08/19 09:55 lab see 09/07/19 ER creatine kinase elevation ckmb elevation repeat 09/10/19 Assessment: 09/08/19 09:59 alcohol withdrawal encourage oral fluid Plan: librium regimen
[2019-09-08] MEDS ORDERED: PRENATAL VITAMINS W/ FOLIC ACID TABLET (FP) PO SCH (10:00)
--- NOTE | 2019-09-08 12:39 | CONSULT ---
[facility] Psychiatric Consult - Data Date of interview: 09/08/19 Admission source: [facility] Identifying data: [employer] Salesperson attempted to see patient this morning but patient stated, " I am too tired to speak to you now." [employer] Salesperson then attempted to see patient after lunch and patient stated, "i'm going home. No need to speak to you." Psychiatric consultation refused.
[2019-09-09] MEDS ORDERED: chlordiazePOXIDE 5 MG CAPSULE PO SCH (05:00)
[2019-09-10] MEDS ORDERED: chlordiazePOXIDE HCL 10 MG CAPSULE PO PRN
[2019-09-10] MEDS ORDERED: chlordiazePOXIDE HCL 10 MG CAPSULE PO SCH (05:00)
[2019-09-11] MEDS ORDERED: chlordiazePOXIDE HCL 10 MG CAPSULE PO ONE (05:00)
== END 2019-09-08 14:13 | disposition left against medical advice (07) | DRG 770 ==
LOC: YASAS 08:11 → Y3N 18:32
PROVIDERS: ADMIT Allergy & Immunology; ATTEND Allergy & Immunology
PROC: HZ2ZZZZ Detoxification Services for Substance Abuse Treatment (ICD-10-PCS; principal; 2019-09-07)
DX: F10.230 Alcohol dependence with withdrawal, uncomplicated (principal); F10.220 Alcohol dependence with intoxication, uncomplicated; F14.20 Cocaine dependence, uncomplicated; F17.210 Nicotine dependence, cigarettes, uncomplicated; F43.10 Post-traumatic stress disorder, unspecified; R00.0 Tachycardia, unspecified
CPT/HCPCS: 36415; 86593

== ENCOUNTER 2019-09-07 09:51 | Emergency (ER) | payer OTHER ==
[2019-09-07 10:17] VITALS: TEMP 98.7; BMI 31.5
[2019-09-07] MEDS ORDERED: SODIUM CHLORIDE 0.9% 1000 ML INFUS.BAG IV ONE ×2 (10:17→12:58)
--- NOTE | 2019-09-07 10:19 | PDOC ---
History of Present Illness - General Chief Complaint: Substance Abuse Stated Complaint: Blood Pressure Problem Time Seen by Provider: 09/07/19 10:15 - History of Present Illness Initial Comments: 33 09/07/19 10:19 binge till before beck will smoke anything he can get on his hands on drug of choice is crack did not feel like his usual crack 09/07/19 10:47 EKG: rate 89, Qtc 430, sinus rhythm Given sandwich and ativan 2mg Patient sleeping in stretcher; in no acute distress 09/07/19 12:07 Somnolent but arounsable Will reassss 09/07/19 14:11 Continues to be somnolent but arousable Will reassess Call over to [facility] Spoke with Aleksandra, nursing shelving supervisor, who requested that I speak with Dr. Petersen via extension [phone] 09/07/19 15:37 Called extension [phone], Gave report to Dr. Pickering regarding patient's clinical improvement To be discharged 09/07/19 15:39 09/07/19 19:01 Past History - Past Medical History Allergies/Adverse Reactions: Allergies Allergy/AdvReac Type Severity Reaction Status Date / Time No Known Allergies Allergy Verified 09/07/19 08:50 Home Medications: Ambulatory Orders Lamotrigine [Lamictal -] 100 mg PO BID 08/30/19 Quetiapine Fumarate [Seroquel -] 400 mg PO HS 08/30/19 traZODone HCL [Trazodone HCl] 200 mg PO DAILY 08/30/19 Anemia: No Asthma: No Cancer: No Cardiac Disorders: No CVA: No COPD: No CHF: No Dementia: No Diabetes: No GI Disorders: No Disorders: No HTN: No Hypercholesterolemia: No Kidney Stones: No Liver Disease: No Psychiatric Problems: Yes Seizures: No Thyroid Disease: No - Surgical History Abdominal Surgery: No Appendectomy: No Cardiac Surgery: No Cholecystectomy: No Lung Surgery: No Neurologic Surgery: No Orthopedic Surgery: No - Reproductive History Testicular Surgery: No - Psycho Social/Smoking Cessation Hx Smoking History: Current every day smoker Have you smoked in the past 12 months: No Number of Cigarettes Smoked Daily: 20 Cigars Per Day: 0 Information on smoking cessation initiated: Yes 'Breaking Loose' booklet given: 09/07/19 Hx Alcohol Use: No Drug/Substance Use Hx: Yes (cocaine, methamphetamine, Xanax) Substance Use Type: Alcohol, Cocaine Hx Substance Use Treatment: Yes ([facility]) *Physical Exam - Vital Signs Last Vital Signs Temp Pulse Resp BP Pulse Ox 98.7 F 88 20 124/89 98 09/07/19 10:09 09/07/19 10:09 09/07/19 10:09 09/07/19 10:09/07/19 10:09 ED Treatment Course - LABORATORY CBC & Chemistry Diagram: 09/07/19 10:25 09/07/19 10:17 Discharge - Discharge Information Problems reviewed: Yes Clinical Impression/Diagnosis: Substance abuse Condition: Improved Disposition: TRANSFER ACUTE CARE/OTHER HOSP - Follow up/Referral Referrals: Billy Baker [Primary Care Provider] - - Patient Discharge Instructions Patient Printed Discharge Instructions: Substance Use Disorder Additional Instructions: You came into the emergency department. Blood work and EKG did not show acute pathology. We gave you medicine which helped you feel better. Return to detox to continue your treatment. Immediate medical attention is required if you have: a seizure or develop tremors or hallucinations and do not have access to alcohol, vomiting, chest pain, shortness of breath, abdominal pain, thoughts of self-harm, or an other new or concerning symptoms. If you think you are having an emergency, call for emergency medical services or present to the emergency department right away. - Post Discharge Activity
[2019-09-07] MEDS ORDERED: MORPHINE SULFATE 2 MG/ML VIAL ONE (10:58)
[2019-09-07] MEDS ORDERED: LORazepam 2 MG/ML SDV VIAL ONE (11:02)
--- NOTE | 2019-09-07 11:09 | PDOC ---
Documentation entered by Ayde Hoffman SCRIBE, acting as scribe for Gurvinder Benjamin MD. Gurvinder Benjamin MD: This documentation has been prepared by the [employer] senior Xhesika, SCRIBE, under my direction and personally reviewed by me in its entirety. I confirm that the documentation accurately reflects all work, treatment, procedures, and medical decision making performed by me. Attending Attestation - Resident Resident Name: Brooklynn Danielson - ED Attending Attestation I have performed the following: I have examined & evaluated the patient, The case was reviewed & discussed with the resident, I agree w/resident's findings & plan, Exceptions are as noted - HPI HPI: 09/07/19 10:54 The patient is a 33 year old male with a significant PMH of Psoriasis, Attention -Deficit Hyperactivity Disorder, Post-Traumatic Stress Disorder, Depression, Nicotine Dependence, and substance abuse (cocaine/crack and alcohol) who presents to the emergency department from [facility] for agitation. The patient states he feels like he is anxious and is withdrawing. Pt states he has been on a binge since before (smoking anything he can get his hands on, but it was not his usual crack/cocaine, thinks it was meth). Pt states his last use was yesterday. Pt states he has never been this agitated before. Pt does not have any acute complaints but endorses some chest tightness. The patient denies shortness of breath, headache and dizziness. Denies fever, chills, cough, nausea, vomiting, diarrhea and constipation. Denies dysuria, frequency, urgency and hematuria. Allergies: NKDA Social history: Nicotine Dependence, and substance abuse (cocaine and alcohol) PCP: Billy Hussein - Physicial Exam PE: 09/07/19 10:57 Vitals: Triage Vital signs reviewed General Appearance: +agitated with non-purposeful movements. Chest Wall: Nontender Cardiac: +tachy, no murmurs, no rubs, no gallops, Lungs: Clear to auscultation bilateral, good air movement bilaterally, Abdomen: Soft, nondistended, normal bowel sounds, nontender to palpation Extremities: Full range of motion to all extremities, no cyanosis, clubbing, or edema Skin: Warm and dry, no rashes or lesions, no petechiae - Medical Decision Making 09/07/19 11:09 33-year-old with greater than 1 week history of crack cocaine binge last smoked yesterday states feels different than crack may have been methamphetamine patient with psychomotor agitation has not slept in several days Was trying to check into detox but physically was slightly too agitated we will check labs EKG We will treat with benzos for agitation observe and reassess 09/07/19 15:40 Patient observed in the emergency department for 5-1/2 hours given 2 mg of Ativan for agitation secondary to likely methamphetamines/crack cocaine use within the last day After sleeping patient is awake alert able to answer questions ambulating with steady gait asking for food does doze off when left in room but arouses to verbal stimuli CK elevated which fits with patient's weeklong history of cocaine binge, kidney function is within normal limits patient hydrated with 2 L normal saline. Patient medically clear for transfer back to [facility] Case discussed with [facility] safe for transfer back for admission for detox
[2019-09-07 11:15] LABS: BASO % 0.5 % (0-2.0); EOS % 1.4 % (0-4.5); HEMATOCRIT 42.1 % (35.4-49); HEMOGLOBIN 14.2 GM/dL (11.7-16.9); LYMPH % 21.6 % (8-40); MCH 30.5 pg (25.7-33.7); MCHC 33.7 g/dl (32.0-35.9); MEAN CELL VOLUME 90.6 fl (80-96); MEAN PLT VOLUME 8.6 fl (7.5-11.1); MONO % 13.7 % (3.8-10.2); NEUT % 62.8 % (42.8-82.8); PLATELET COUNT 292 K/MM3 (134-434); RBC 4.65 M/mm3 (4.00-5.60); RDW 12.1 % (11.9-15.9); WHITE BLOOD COUNT 11.5 K/mm3 (4.0-10.0)
[2019-09-07 11:57] LABS: ALBUMIN 3.5 g/dl (3.4-5.0); ALK PHOS 85 U/L (45-117); ANION GAP 6 MMOL/L (8-16); BILIRUBIN,TOTAL 0.2 mg/dL (0.2-1); BLOOD UREA NITROGEN 10.6 mg/dL (7-18); CALCIUM 8.8 mg/dL (8.5-10.1); CHLORIDE 106 mmol/L (98-107); CO2 27 mmol/L (21-32); CREATININE 0.8 mg/dL (0.55-1.3); GLUCOSE,RANDOM 95 mg/dL (74-106); POTASSIUM 4.1 mmol/L (3.5-5.1); SGOT/AST 49 U/L (15-37); SGPT/ALT 79 U/L (13-61); SODIUM 139 mmol/L (136-145); TOT PROT 6.4 g/dl (6.4-8.2)
[2019-09-07 16:25] VITALS: BP 130/49; PULSE 96
[2019-09-07 16:42] LABS: METHADONE, UR NEGATIVE ng/ml (CUTOFF=300); OPIATES, URI NEGATIVE ng/ml (CUTOFF=300); PHENCYCLIDINE,URINE NEGATIVE ng/ml (CUTOFF=25); URINE AMPHETAMINES NEGATIVE ng/ml (CUTOFF=500); URINE BARBITURATES NEGATIVE ng/ml (CUTOFF=200); URINE BENZODIAZEPINES NEGATIVE ng/ml (CUTOFF=200)
[2019-09-07 16:45] LABS: COCAINE, UR POSITIVE ng/ml (CUTOFF=300)
--- NOTE | 2019-09-08 11:52 | EKG ---
Test Reason : Blood Pressure : / mmHG Vent. Rate : 089 BPM Atrial Rate : 089 BPM P-R Int : 162 ms QRS Dur : 076 ms QT Int : 354 ms P-R-T Axes : 030 015 030 degrees QTc Int : 430 ms POOR DATA QUALITY, INTERPRETATION MAY BE ADVERSELY AFFECTED SINUS RHYTHM WITH MARKED SINUS ARRHYTHMIA OTHERWISE NORMAL ECG WHEN COMPARED WITH ECG OF 30-NOV-2018 19:17, NO SIGNIFICANT CHANGE WAS FOUND Confirmed by RIGOBERTO SINCLAIR, CAITIE ([id number]) on 09/08/2019 11:51:32 AM Referred By: Confirmed By:CAITIE FRANKLIN MD
== END 2019-09-07 16:28 | disposition short-term general hospital (02) ==
LOC: JER 09:51
DX: F19.10 Other psychoactive substance abuse, uncomplicated (principal); F17.210 Nicotine dependence, cigarettes, uncomplicated; F99 Mental disorder, not otherwise specified
CPT/HCPCS: 36415; 80053; 80307; 82550; 82553; 84484; 85025; 93005; 93010; 99284-25; J7030

== ENCOUNTER 2019-09-20 03:05 | Emergency (ER) | payer OTHER ==
[2019-09-20 04:08] VITALS: BMI 24.3
--- NOTE | 2019-09-20 04:59 | PDOC ---
History of Present Illness - General Chief Complaint: Substance Abuse Stated Complaint: INTOXICATED Time Seen by Provider: 09/20/19 04:58 History Source: Patient Exam Limitations: No Limitations - History of Present Illness Initial Comments: 09/20/19 05:23 HISTORY OF PRESENT ILLNESS: 33-year-old male sent from [facility] for emergency department evaluation for detox. Patient reports he drinks "1 gallon " of vodka or beer daily and now has a desire to stop. Patient is refusing physical exam at this time. No recent travel or sick contacts. PAST MEDICAL HISTORY: Alcohol abuse SURGICAL HISTORY: Denies ALLERGIES: No known drug allergies REVIEW OF SYSTEMS General/Constitutional: Denies fever or chills. Denies weakness, weight change. HEENT: Denies change in vision. Denies ear pain or discharge. Denies sore throat. Cardiovascular: Denies chest pain or shortness of breath. Respiratory: Denies cough, wheezing, or hemoptysis. Gastrointestinal: Denies nausea, vomiting, diarrhea or constipation. Denies rectal bleeding. Genitourinary: Denies dysuria, frequency, or change in urination. Musculoskeletal: Denies joint or muscle swelling or pain. Denies neck or back pain. Skin and breasts: Denies rash or easy bruising. Neurologic: Denies headache, vertigo, loss of consciousness, or loss of sensation. Psychiatric: Denies depression or anxiety. Endocrine: Denies increased thirst. Denies abnormal weight change. Hematologic/Lymphatic: Denies anemia, easy bleeding, or history of blood clots. Allergic/Immunologic: Denies hives or skin allergy. Denies latex allergy. PHYSICAL EXAM General Appearance: Disheveled but dressed appropriately for weather. No apparent distress. Appears intoxicated with AOB. Past History - Past Medical History Allergies/Adverse Reactions: Allergies Allergy/AdvReac Type Severity Reaction Status Date / Time No Known Allergies Allergy Verified 09/20/19 10:46 Home Medications: Ambulatory Orders Lamotrigine [Lamictal -] 100 mg PO BID 08/30/19 Quetiapine Fumarate [Seroquel -] 400 mg PO HS 08/30/19 traZODone HCL [Trazodone HCl] 200 mg PO DAILY 08/30/19 Cephalexin Monohydrate [Keflex -] 500 mg PO BID 7 Days #14 capsule 09/20/19 Anemia: No Asthma: No Cancer: No Cardiac Disorders: No CVA: No COPD: No CHF: No Dementia: No Diabetes: No GI Disorders: No Disorders: No HTN: No Hypercholesterolemia: No Kidney Stones: No Liver Disease: No Psychiatric Problems: Yes Seizures: No Thyroid Disease: No - Surgical History Abdominal Surgery: No Appendectomy: No Cardiac Surgery: No Cholecystectomy: No Lung Surgery: No Neurologic Surgery: No Orthopedic Surgery: No - Reproductive History Testicular Surgery: No - Psycho Social/Smoking Cessation Hx Smoking History: Current some day smoker Have you smoked in the past 12 months: No Number of Cigarettes Smoked Daily: 20 Cigars Per Day: 0 Information on smoking cessation initiated: No 'Breaking Loose' booklet given: 09/07/19 Hx Alcohol Use: Yes Drug/Substance Use Hx: Yes (marijuana) Substance Use Type: Alcohol, Cocaine Hx Substance Use Treatment: Yes ([facility]) *Physical Exam - Vital Signs Last Vital Signs Temp Pulse Resp BP Pulse Ox 98.8 F 86 20 116/84 97 09/20/19 03:05 09/20/19 03:05 09/20/19 03:05 09/20/19 03:05 09/20/19 03:05 Medical Decision Making - Medical Decision Making 09/20/19 05:26 A/P: 33-year-old male with alcohol intoxication Refusing physical exam at this time. Alcohol on breath We will discharge home and achieved clinical sobriety. Reassess 09/20/19 06:12 Patient awake and more amenable to assessment at this time. Right hand swollen with abrasions present to the knuckles bilaterally. Minimal erythema is present. No discharge or drainage from the wounds no erythema or streaking presents to forearms. No bony tenderness, deformity, crepitus or step-off present upon palpation of the bones of the right and. Full active range of motion of right fingers, hand, wrist and elbow noted. Breastfeeding Peer Counselor strength 5/5 bilaterally. X-ray of the right hand Bacitracin to abrasions Reassess 09/20/19 07:06 Patient signed out to DAJUAN Yanes for continued evaluation. 09/20/19 20:17 Discharge - Discharge Information Problems reviewed: Yes Clinical Impression/Diagnosis: Substance abuse, Swelling of right hand, Hand abrasion, non-infected, Cellulitis of right hand excluding fingers and thumb Condition: Fair Disposition: TRANSFER ACUTE CARE/OTHER HOSP - Additional Discharge Information Prescriptions: Cephalexin Monohydrate [Keflex -] 500 mg PO BID 7 Days #14 capsule - Follow up/Referral - Patient Discharge Instructions Additional Instructions: Your hand x-ray shows no fracture or dislocation. Redness and swelling of your right hand could mean infection of the hand. Take prescribed antibiotics and finish it for cellulitis of right hand. Take Motrin as needed for pain. You are being sent back to [facility] for detox as requested - Post Discharge Activity
--- NOTE | 2019-09-20 05:03 | PDOC ---
*Physical Exam - Vital Signs Last Vital Signs Temp Pulse Resp BP Pulse Ox 98.8 F 86 20 116/84 97 09/20/19 03:05 09/20/19 03:05 09/20/19 03:05 09/20/19 03:05 09/20/19 03:05 Medical Decision Making - Medical Decision Making 09/20/19 05:03 Patient seen by the advanced practice provider under my direct supervision. Ancillary testing reviewed as necessary. I agree with plan as outlined by the advanced practice provider. Discharge - Discharge Information Problems reviewed: Yes Clinical Impression/Diagnosis: Substance abuse, Swelling of right hand, Hand abrasion, non-infected, Cellulitis of right hand excluding fingers and thumb Condition: Fair Disposition: TRANSFER ACUTE CARE/OTHER HOSP - Additional Discharge Information Prescriptions: Cephalexin Monohydrate [Keflex -] 500 mg PO BID 7 Days #14 capsule - Follow up/Referral - Patient Discharge Instructions Additional Instructions: Your hand x-ray shows no fracture or dislocation. Redness and swelling of your right hand could mean infection of the hand. Take prescribed antibiotics and finish it for cellulitis of right hand. Take Motrin as needed for pain. You are being sent back to [facility] for detox as requested - Post Discharge Activity
[2019-09-20] MEDS ORDERED: BACITRACIN 15 GM TUBE TOPICAL OINTMENT TP ONE (06:12)
[2019-09-20] MEDS ORDERED: BACITRACIN 0.9 GM PACKET ONE (07:30)
[2019-09-20 07:42] VITALS: BP 136/80; PULSE 81; TEMP 98.7
--- NOTE | 2019-09-20 07:43 | PDOC ---
*Physical Exam - Vital Signs Last Vital Signs Temp Pulse Resp BP Pulse Ox 98.8 F 86 20 116/84 97 09/20/19 03:05 09/20/19 03:05 09/20/19 03:05 09/20/19 03:05 09/20/19 03:05 - Physical Exam General Appearance: Yes: Nourished, Appropriately Dressed, Disheveled, Alcohol on Breath. No: Apparent Distress HEENT: positive: Normal ENT Inspection Respiratory/Chest: negative: Respiratory Distress, Accessory Muscle Use Musculoskeletal: positive: Other (moderate swelling with mild erythema to dorsal of right hand. multiple old abrasions to b/l knuckles) Integumentary: positive: Warm, Erythema (mild erythema to dorsal aspect of right hand), Bruising (multiple abrasions to knuckles of b/l hands) Neurologic: positive: Fully Oriented, Alert Medical Decision Making - Medical Decision Making 09/20/19 07:41 I assumed care of this 33-year-old male presented with alcohol intoxication and multiple abrasion to bilateral hands knuckles and swelling to right hand sent in from [facility] for evaluation. Patient refused full-body exam from previous team. Patient pending x-ray of right hand to rule out hand fracture. Patient laying in bed comfortably no acute distress awaiting x-ray. Will discharge after x-ray based on result with follow-up back to [facility] for detox 09/20/19 09:01 X-ray of right hand shows no acute fracture or dislocation. Given swelling of right hand and skin erythema, will treat patient on Keflex antibiotics for cellulitis of right hand. Patient stable to be transferred back to [facility] for detox as patient is requesting to go for alcohol detox. Patient not actively withdrawing at this moment Discharge - Discharge Information Problems reviewed: Yes Clinical Impression/Diagnosis: Substance abuse, Swelling of right hand, Hand abrasion, non-infected, Cellulitis of right hand excluding fingers and thumb Condition: Fair Disposition: TRANSFER ACUTE CARE/OTHER HOSP - Admission No - Additional Discharge Information Prescriptions: Cephalexin Monohydrate [Keflex -] 500 mg PO BID 7 Days #14 capsule - Follow up/Referral - Patient Discharge Instructions Additional Instructions: Your hand x-ray shows no fracture or dislocation. Redness and swelling of your right hand could mean infection of the hand. Take prescribed antibiotics and finish it for cellulitis of right hand. Take Motrin as needed for pain. You are being sent back to [facility] for detox as requested - Post Discharge Activity
== END 2019-09-20 10:15 | disposition short-term general hospital (02) ==
LOC: JER 03:05
DX: F10.220 Alcohol dependence with intoxication, uncomplicated (principal); L03.113 Cellulitis of right upper limb
CPT/HCPCS: 73130-TC-RT-FY; 99283-25

== ENCOUNTER 2019-09-20 10:30 | Inpatient (IN) | payer OTHER ==
--- NOTE | 2019-09-20 02:46 | HP ---
CIWA Score - Admission Criteria [facility] Guidelines: Admission for Medically Managed Detox: Requires at least one of the followin. CIWA greater than 12 2. Seizures within the past 24 hours 3. Delirium tremens within the past 24 hours 4. Hallucinations within the past 24 hours 5. Acute intervention needed for co occurring medical disorder 6. Acute intervention needed for co occurring psychiatric disorder 7. Severe withdrawal that cannot be handled at a lower level of care (continued vomiting, continued diarrhea, abnormal vital signs) requiring intravenous medication and/or fluids 8. Admitting History and Physical - Smoking History Smoking history: Current every day smoker Have you smoked in the past 12 months: No Aproximately how many cigarettes per day: 20 - Alcohol/Substance Use Hx Alcohol Use: No Admission ROS [facility] - HPI Allergies/Adverse Reactions: Allergies Allergy/AdvReac Type Severity Reaction Status Date / Time No Known Allergies Allergy Verified 09/20/19 04:08 Patient History - Patient Medical History Hx Anemia: No Hx Asthma: No Hx Chronic Obstructive Pulmonary Disease (COPD): No Hx Cancer: No Hx Cardiac Disorders: No Hx Congestive Heart Failure: No Hx Hypertension: No Hx Hypercholesterolemia: No Hx Pacemaker: No HX Cerebrovascular Accident: No Hx Seizures: No Hx Dementia: No Hx Diabetes: No Hx Gastrointestinal Disorders: No Hx Liver Disease: No Hx Genitourinary Disorders: No Hx Sexually Transmitted Disorders: No Hx Renal Disease (ESRD): No Hx Thyroid Disease: No Hx Human Immunodeficiency Virus (HIV): No Hx Hepatitis C: No Hx Depression: Yes Hx Suicide Attempt: No Hx Bipolar Disorder: No Hx Schizophrenia: No - Patient Surgical History Past Surgical History: No Hx Neurologic Surgery: No Hx Cataract Extraction: No Hx Cardiac Surgery: No Hx Lung Surgery: No Hx Breast Surgery: No Hx Breast Biopsy: No Hx Abdominal Surgery: No Hx Appendectomy: No Hx Cholecystectomy: No Hx Genitourinary Surgery: No Hx Section: No Hx Orthopedic Surgery: No Anesthesia Reaction: No - PPD History Date: 04/11/19 Results: 0 - Smoking Cessation Smoking history: Current every day smoker Have you smoked in the past 12 months: No Aproximately how many cigarettes per day: 20 Cigars Per Day: 0 Hx Chewing Tobacco Use: No Initiated information on smoking cessation: Yes 'Breaking Loose' booklet given: 09/20/19 - Substances abused Alcohol Other (specify): BEER/VODKA Substance route: Oral Frequency: Daily Amount used: 1GALLON Age of first use: 18 Date of last use: 09/06/19 Cocaine Other (specify): CRACK/COCAINE Substance route: Smoking Frequency: Daily Amount used: $1000/4DAYS Age of first use: 16 Date of last use: 09/06/19 Methamphetamine Substance route: Smoking Frequency: Daily Amount used: BINGED LOTS OF IT Date of last use: 09/07/19 Screened but not Admitted - Documentation of Visit Screened but not Admitted: No Left Prior to Completion of Assessment: No Insurance Authorization Denied: No Patient Does Not Meet Criteria for Admission: Yes Alternative Treatment/Longterm Info Provided: Yes Additional Information/Explanation: Patient is hyperactive, agitated and has bilateral hand swelling with abrasions present and bilateral knuckle wounds with pus that appears infected. He is also very much intoxicated, refusing to follow directions and unable to answer questions. Patient is being transferred to ER for further evaluation. Breathalyzer - Breathalyzer Breathalyzer: 0 Urine Drug Screen - Test Device Lot number: [id number] Expiration date: 12/25/20 - Control Is test valid?: Yes - Results Drug screen NEGATIVE: No Urine drug screen results: GILBERTO-Cocaine Inpatient Rehab Admission - Rehab Decision to Admit Inpatient rehab admission?: No
[2019-09-20 02:58] VITALS: BMI 32.0
--- NOTE | 2019-09-20 12:20 | HP ---
CIWA Score Nausea/Vomitin-No Nausea/No Vomiting Muscle Tremors: 2 Anxiety: 3 Agitation: 4-Moderately Restless Paroxysmal Sweats: No Perspiration Orientation: 1-Uncertain about Date Tacttile Disturbances: 0-None Auditory Disturbances: 2-Mild Harshness/Frighten Visual Disturbances: 2-Mild Sensitivity Headache: 0-None Present CIWA-Ar Total Score: 14 - Admission Criteria OASAS Guidelines: Admission for Medically Managed Detox: Requires at least one of the followin. CIWA greater than 12 2. Seizures within the past 24 hours 3. Delirium tremens within the past 24 hours 4. Hallucinations within the past 24 hours 5. Acute intervention needed for co occurring medical disorder 6. Acute intervention needed for co occurring psychiatric disorder 7. Severe withdrawal that cannot be handled at a lower level of care (continued vomiting, continued diarrhea, abnormal vital signs) requiring intravenous medication and/or fluids 8. Admitting History and Physical - Smoking History Smoking history: Current every day smoker Have you smoked in the past 12 months: No Aproximately how many cigarettes per day: 20 - Alcohol/Substance Use Hx Alcohol Use: No Admission ROS BHS - HPI Allergies/Adverse Reactions: Allergies Allergy/AdvReac Type Severity Reaction Status Date / Time No Known Allergies Allergy Verified 09/20/19 10:46 History of Present Illness: Patient returned from [facility] ED after being sent to ED earlier today for evaluation, dx w/ rhabdomyolysis and hand cellulitis. Patient somnolent, awakens to verbal stimuli and answers questions, then falls back to sleep, irritable and agitated when awakened. States drinks 2 pints vodka daily. pt is poor historian, AMA on previous admissions most recently 09/08/2019 [facility] and [facility] ED ROS and PE reviewed. UTox : + GILBERTO / BZO. DARIO: 0.0 Exam Limitations: Clinical Condition - Review of Systems Constitutional: Loss of Appetite EENT: reports: No Symptoms Reported Respiratory: reports: No Symptoms reported Cardiac: reports: No Symptoms Reported GI: reports: Constipated, Diarrhea : reports: No Symptoms Reported Musculoskeletal: reports: See HPI (emy hands s/p ER evaluation dx cellulitis, on ABx Keflex) Integumentary: reports: See HPI, Bruising (emy hands), Erythema (emy hands), Other (supperficial excoriations emy MCP) Neuro: reports: See HPI, Other (drowsy , falls asleep frequently during interview, awakend w/ some difficulty by verbal stimuli .) Endocrine: reports: No Symptoms Reported Psychiatric: reports: Agitated, Anxious Patient History - Patient Medical History Hx Anemia: No Hx Asthma: No Hx Chronic Obstructive Pulmonary Disease (COPD): No Hx Cancer: No Hx Cardiac Disorders: No Hx Congestive Heart Failure: No Hx Hypertension: No Hx Hypercholesterolemia: No Hx Pacemaker: No HX Cerebrovascular Accident: No Hx Seizures: No Hx Dementia: No Hx Diabetes: No Hx Gastrointestinal Disorders: No Hx Liver Disease: No Hx Genitourinary Disorders: No Hx Sexually Transmitted Disorders: No Hx Renal Disease (ESRD): No Hx Thyroid Disease: No Hx Human Immunodeficiency Virus (HIV): No Hx Hepatitis C: No Hx Depression: Yes Hx Suicide Attempt: No Hx Bipolar Disorder: No Hx Schizophrenia: No - Patient Surgical History Past Surgical History: No Hx Neurologic Surgery: No Hx Cataract Extraction: No Hx Cardiac Surgery: No Hx Lung Surgery: No Hx Breast Surgery: No Hx Breast Biopsy: No Hx Abdominal Surgery: No Hx Appendectomy: No Hx Cholecystectomy: No Hx Genitourinary Surgery: No Hx Section: No Hx Orthopedic Surgery: No Anesthesia Reaction: No - PPD History Date: 04/11/19 Results: 0 - Smoking Cessation Smoking history: Current every day smoker Have you smoked in the past 12 months: No Aproximately how many cigarettes per day: 20 Cigars Per Day: 0 Hx Chewing Tobacco Use: No Initiated information on smoking cessation: No - Substances abused Alcohol Other (specify): BEER/VODKA Substance route: Oral Frequency: Daily Amount used: 2 pints of vodka Age of first use: 18 Date of last use: 09/19/19 Cocaine Other (specify): CRACK/COCAINE Substance route: Smoking Frequency: Daily Amount used: $1000 Age of first use: 16 Date of last use: 09/19/19 Methamphetamine Substance route: Smoking Frequency: Daily Amount used: Alot Age of first use: 21 Date of last use: 09/19/19 Admission Physical Exam BHS - Vital Signs Vital Signs: Vital Signs - 24 hr 09/20/19 09/20/19 02:57 10:48 Temperature 97.3 F L 99.3 F Pulse Rate 99 H 89 Respiratory 18 20 Rate Blood Pressure 147/69 139/88 - Physical General Appearance: Yes: Disheveled, Mild Distress, Irritable, Anxious HEENTM: Yes: EOMI, Hearing grossly Normal, Normocephalic, Muffled/Hoarse Voice Respiratory: Yes: Chest Non-Tender, Lungs Clear, Normal Breath Sounds, No Respiratory Distress, No Accessory Muscle Use Neck: Yes: No masses,lesions,Nodules, Trachea in good position Cardiology: Yes: Regular Rhythm, Regular Rate, S1, S2, Tachycardia Abdominal: Yes: Non Tender, Soft Back: Yes: Normal Inspection Musculoskeletal: Yes: Gait Steady Extremities: Yes: Tremors, Erythema (emy hands), Inflammation (emy hands), Other (tenderness on dorsum of right hand w/ palaption , + edema / erythema) Neurological: Yes: Disoriented, Other (drowsy) Integumentary: Yes: Warm, Other (superficial excoriations emy hands dorsum MCP) - Diagnostic (1) Alcohol dependence with uncomplicated withdrawal Current Visit: Yes Status: Chronic (2) Cocaine dependence, uncomplicated Current Visit: Yes Status: Chronic Breathalyzer - Breathalyzer Breathalyzer: 0 Urine Drug Screen - Test Device Lot number: [id number] Expiration date: 04/06/21 - Control Is test valid?: Yes - Results Drug screen NEGATIVE: No Urine drug screen results: GILBERTO-Cocaine, BZO-Benzodiazepines Inpatient Rehab Admission - Rehab Decision to Admit Inpatient rehab admission?: No
[2019-09-20] MEDS ORDERED: IBUPROFEN 400 MG TABLET (FP) PO PRN (12:31)
[2019-09-20] MEDS ORDERED: ONDANSETRON *ODT* 4 MG TABLET SL PRN (12:31)
[2019-09-20] MEDS ORDERED: MAGNESIUM HYDROX 2400MG/30ML ORAL SUSPENSION 30 ML CUP PO PRN (12:31)
[2019-09-20] MEDS ORDERED: MELATONIN 5 MG TABLETS PO PRN (12:31)
[2019-09-20] MEDS ORDERED: MAG HYDROX/AL HYDROX/SIMETH 30 ML UNIT-DOSE CUP PO PRN (12:31)
[2019-09-20] MEDS ORDERED: ACETAMINOPHEN 325 MG TABLET (FP) PO PRN ×2 (12:31)
[2019-09-20] MEDS ORDERED: BISMUTH SUBSALICYLATE 262 MG/15 ML BTL PO PRN (12:31)
[2019-09-20] MEDS ORDERED: MAGNESIUM CITRATE 300 ML BOTTLE PO PRN (12:31)
[2019-09-20] MEDS ORDERED: MENTHOL/PHENOL 1 EACH UD MM PRN (12:31)
[2019-09-20] MEDS ORDERED: chlordiazePOXIDE HCL 25 MG CAPSULE PO PRN (12:32)
[2019-09-20] MEDS: chlordiazePOXIDE HCL 25 MG CAPSULE PO SCH ×2 (18:08→22:08)
[2019-09-20] MEDS: THIAMINE HCL 100 MG TABLET (FP) PO SCH (22:08)
[2019-09-20] MEDS: CEPHALEXIN MONOHYDRATE 500 MG CAPSULE (UD) PO SCH (22:08)
[2019-09-20] MEDS: hydrOXYzine PAMOATE 25 MG CAPSULE (FP) PO PRN (22:10)
[2019-09-21] MEDS: hydrOXYzine PAMOATE 25 MG CAPSULE (FP) PO PRN (06:29)
[2019-09-21] MEDS: chlordiazePOXIDE HCL 25 MG CAPSULE PO SCH ×4 (06:30→22:19)
[2019-09-21] MEDS ORDERED: PRENATAL VITAMINS W/ FOLIC ACID TABLET (FP) PO SCH (10:00)
[2019-09-21] MEDS: CEPHALEXIN MONOHYDRATE 500 MG CAPSULE (UD) PO SCH ×2 (12:47→22:19)
--- NOTE | 2019-09-21 14:00 | PN ---
S CIWA - CIWA Score Nausea/Vomitin Muscle Tremors: 2 Anxiety: 2 Agitation: 2 Paroxysmal Sweats: No Perspiration Orientation: 0-Oriented Tacttile Disturbances: 1-Very Mild Itch/Numbness Auditory Disturbances: 0-None Visual Disturbances: 0-None Headache: 2-Mild CIWA-Ar Total Score: 11 BHS Progress Note (SOAP) Subjective: alert,irritable,anxious,tremor,pain in the body Objective: 09/21/19 13:59 Vital Signs Temperature 97.9 F 09/20/19 21:42 Pulse Rate 107 H 09/20/19 21:42 Respiratory Rate 18 09/21/19 03:30 Blood Pressure 131/80 09/20/19 21:42 O2 Sat by Pulse Oximetry (%) Assessment: 09/21/19 14:00 withdrawal symptom Plan: continue detox,cbc cmp,cpk in am,fluid
--- NOTE | 2019-09-21 14:53 | CONSULT ---
[facility] Psychiatric Consult - Data Date of interview: 09/21/19 Psychiatric History: Patient was approached at bedside and found sound asleep.Please reconsult when patient is awake and willing to be interviewed
[2019-09-21] MEDS: THIAMINE HCL 100 MG TABLET (FP) PO SCH (22:19)
[2019-09-21 23:31] VITALS: BP 151/78; PULSE 78; TEMP 98.1
[2019-09-22] MEDS ORDERED: chlordiazePOXIDE HCL 25 MG CAPSULE PO SCH (05:00)
[2019-09-22 11:31] LABS: BASO % 0.6 % (0-2.0); EOS % 4.2 % (0-4.5); HEMATOCRIT 45.6 % (35.4-49); HEMOGLOBIN 15.3 GM/dL (11.7-16.9); LYMPH % 26.4 % (8-40); MCH 30.9 pg (25.7-33.7); MCHC 33.5 g/dl (32.0-35.9); MEAN CELL VOLUME 92.1 fl (80-96); MEAN PLT VOLUME 9.5 fl (7.5-11.1); MONO % 12.5 % (3.8-10.2); NEUT % 56.3 % (42.8-82.8); PLATELET COUNT 212 K/MM3 (134-434); RBC 4.95 M/mm3 (4.00-5.60); RDW 12.8 % (11.9-15.9); WHITE BLOOD COUNT 4.9 K/mm3 (4.0-10.0)
[2019-09-22 11:39] LABS: ALBUMIN 3.2 g/dl (3.4-5.0); BILIRUBIN,TOTAL 0.2 mg/dL (0.2-1); BLOOD UREA NITROGEN 9.6 mg/dL (7-18); CALCIUM 8.6 mg/dL (8.5-10.1); CREATININE 0.7 mg/dL (0.55-1.3); POTASSIUM 4.2 mmol/L (3.5-5.1); TOT PROT 6.3 g/dl (6.4-8.2)
[2019-09-23] MEDS ORDERED: chlordiazePOXIDE HCL 10 MG CAPSULE PO PRN
[2019-09-23] MEDS ORDERED: chlordiazePOXIDE HCL 10 MG CAPSULE PO SCH (05:00)
[2019-09-24] MEDS ORDERED: chlordiazePOXIDE HCL 10 MG CAPSULE PO SCH (05:00)
[2019-09-25] MEDS ORDERED: chlordiazePOXIDE HCL 10 MG CAPSULE PO ONE (05:00)
== END 2019-09-22 09:20 | disposition left against medical advice (07) | DRG 770 ==
LOC: YASAS 10:30 → Y6N 12:46
PROVIDERS: ADMIT Allergy & Immunology; ATTEND Allergy & Immunology
PROC: HZ2ZZZZ Detoxification Services for Substance Abuse Treatment (ICD-10-PCS; principal; 2019-09-20)
DX: F10.230 Alcohol dependence with withdrawal, uncomplicated (principal); F14.20 Cocaine dependence, uncomplicated; F15.20 Other stimulant dependence, uncomplicated; F17.210 Nicotine dependence, cigarettes, uncomplicated; F32.9 Major depressive disorder, single episode, unspecified; M62.82 Rhabdomyolysis; L03.113 Cellulitis of right upper limb; Z59.0 Homelessness
CPT/HCPCS: 36415; 80053; 82550; 85025

== ENCOUNTER 2019-10-11 12:04 | Inpatient (IN) | payer OTHER ==
--- NOTE | 2019-10-11 12:24 | PDOC ---
History of Present Illness - General Chief Complaint: Seizure Stated Complaint: SEIZURE Time Seen by Provider: 10/11/19 12:14 - History of Present Illness Initial Comments: Mr. Betancur is a 33 y/o male with PMH significant for polysubstance abuse and known seizure disorder BIBEMS today for witnessed generalized tonic clonic seizure x3. Per EMS he was at the [facility] on the second floor when staff witnessed two generalized seizures. EMS arrived and witnessed a third seizure lasting around 30 seconds. 5 of Versed given by EMS. At bedside, pt has eyes closed but awakens on sternal rub. Able to answer questions but avoids questions regarding drug use. States that he has had seizures before but is unsure of his last seizure. He does not follow with a neurologist. Does not take any seizure medications. Denies tongue biting or urinary incontinence. Denies headache, chest pain, or any other complaints at this time. Past History - Past Medical History Allergies/Adverse Reactions: Allergies Allergy/AdvReac Type Severity Reaction Status Date / Time No Known Allergies Allergy Verified 10/11/19 12:10 Home Medications: Ambulatory Orders NK [No Known Home Medication] 10/11/19 Anemia: No Asthma: No Cancer: No Cardiac Disorders: No CVA: No COPD: No CHF: No Dementia: No Diabetes: No GI Disorders: No Disorders: No HTN: No Hypercholesterolemia: No Kidney Stones: No Liver Disease: No Psychiatric Problems: Yes Seizures: No Thyroid Disease: No - Surgical History Abdominal Surgery: No Appendectomy: No Cardiac Surgery: No Cholecystectomy: No Lung Surgery: No Neurologic Surgery: No Orthopedic Surgery: No - Reproductive History Testicular Surgery: No - Immunization History Immunization Up to Date: No - Psycho Social/Smoking Cessation Hx Smoking History: Unknown if ever smoked Have you smoked in the past 12 months: No Number of Cigarettes Smoked Daily: 20 Cigars Per Day: 0 Information on smoking cessation initiated: No 'Breaking Loose' booklet given: 09/20/19 Hx Alcohol Use: No Drug/Substance Use Hx: No Substance Use Type: Alcohol, Cocaine Hx Substance Use Treatment: Yes ([facility]) Review of Systems - Review of Systems Comments:: GENERAL/CONSTITUTIONAL: No fever or chills. No weakness._ HEAD, EYES, EARS, NOSE AND THROAT: No change in vision. No change in hearing. No sore throat._ CARDIOVASCULAR: No chest pain or shortness of breath_ RESPIRATORY: Denies cough, hemoptysis_ GASTROINTESTINAL: No nausea, vomiting, diarrhea or constipation._ GENITOURINARY: No dysuria, frequency, or change in urination._ MUSCULOSKELETAL: No joint or muscle swelling or pain. No neck or back pain._ SKIN: No rash_ NEUROLOGIC: Witnessed seizure x3. No headache, vertigo, or change in strength/ sensation._ ENDOCRINE: No increased thirst. No abnormal weight change_ HEMATOLOGIC/LYMPHATIC: No anemia, easy bleeding, or history of blood clots._ ALLERGIC/IMMUNOLOGIC: No hives or skin allergy._ *Physical Exam - Vital Signs Last Vital Signs Temp Pulse Resp BP Pulse Ox 94 H 16 119/74 100 10/11/19 12:07 10/11/19 12:07 10/11/19 12:07 10/11/19 12:07 - Physical Exam Limited 2/2 poor patient cooperation GENERAL: Arousable, and oriented to person/place/time, in no acute distress_ HEAD: No signs of trauma, normoc ephalic, atraumatic _ EYES: PERRLA, EOMI, sclera anicteric, conjunctiva clear_ ENT: Hearing grossly normal, nares patent, oropharynx clear without exudates. No uvular deviation. Moist mucosa_ NECK: Normal ROM, supple, no lymphadenopathy, JVD, or masses_ LUNGS: No distress, speaks in full sentences, clear to auscultation bilaterally _ HEART: Regular rate and rhythm, normal S1 and S2, no murmurs appreciated, peripheral pulses normal and equal bilaterally._ ABDOMEN: Soft, nontender, normoactive bowel sounds. No guarding, no rebound. No masses_ EXTREMITIES: Normal inspection, Normal range of motion, no edema. No clubbing or cyanosis_ NEUROLOGICAL: Unable to assess 2/2 poor patient cooperation. SKIN: Warm, Dry, normal turgor, no rashes or lesions noted_ ED Treatment Course - LABORATORY CBC & Chemistry Diagram: 10/11/19 12:36 10/11/19 12:36 - RADIOLOGY Radiology Studies Ordered: Category Date Time Status CERVICAL SPINE CT W/O CONTR [CT] Stat CT Scan 10/11/19 12:[address] WITHOUT CONTRAST [CT] Stat CT Scan 10/11/19 12:21 Ordered CHEST X-RAY PORTABLE* [RAD] Stat Radiology 10/11/19 12:22 Ordered Medical Decision Making - Medical Decision Making 10/11/19 12:33 33M hx of polysubstance abuse and known seizure disorder presenting with witnessed generalized tonic clonic seizure x3 prior to arrival. -cbc, cmp -ekg, cxr -ua, ucx, utox -etoh, salicilyate, acetaminophen -ct head, neck 10/11/19 13:53 CT head shows no acute intracranial pathology. CXR shows no acute intra thoracic pathology. CT neck shows no fracture or subluxation. 10/11/19 15:47 D/w Dr. Card who recommends admission and lamictal 200 mg BID and blood level in the morning. Labs reviewed. Laboratory Last Values WBC 7.1 K/mm3 (4.0-10.0) 10/11/19 12:36 RBC 4.91 M/mm3 (4.00-5.60) 10/11/19 12:36 Hgb 15.2 GM/dL (11.7-16.9) 10/11/19 12:36 Hct 45.4 % (35.4-49) 10/11/19 12:36 MCV 92.5 fl (80-96) 10/11/19 12:36 MCH 31.0 pg (25.7-33.7) 10/11/19 12:36 MCHC 33.5 g/dl (32.0-35.9) 10/11/19 12:36 RDW 12.8 % (11.9-15.9) 10/11/19 12:36 Plt Count 211 K/MM3 (134-434) 10/11/19 12:36 MPV 9.1 fl (7.5-11.1) 10/11/19 12:36 Absolute Neuts (auto) 5.1 K/mm3 (1.5-8.0) 10/11/19 12:36 Neutrophils % 72.5 % (42.8-82.8) D 10/11/19 12:36 Lymphocytes % 20.2 % (8-40) D 10/11/19 12:36 Monocytes % 5.6 % (3.8-10.2) 10/11/19 12:36 Eosinophils % 1.1 % (0-4.5) 10/11/19 12:36 Basophils % 0.6 % (0-2.0) 10/11/19 12:36 Nucleated RBC % 0 % (0-0) 10/11/19 12:36 Sodium 140 mmol/L (136-145) 10/11/19 12:36 Potassium 4.1 mmol/L (3.5-5.1) 10/11/19 12:36 Chloride 107 mmol/L (98-107) 10/11/19 12:36 Carbon Dioxide 26 mmol/L (21-32) 10/11/19 12:36 Anion Gap 6 MMOL/L (8-16) L 10/11/19 12:36 BUN 11.0 mg/dL (7-18) 10/11/19 12:36 Creatinine 0.7 mg/dL (0.55-1.3) 10/11/19 12:36 Est GFR (CKD-EPI)AfAm 143.71 10/11/19 12:36 Est GFR (CKD-EPI)NonAf 123.99 10/11/19 12:36 Random Glucose 101 mg/dL (74-106) 10/11/19 12:36 Calcium 8.9 mg/dL (8.5-10.1) 10/11/19 12:36 Total Bilirubin 0.4 mg/dL (0.2-1) 10/11/19 12:36 AST 23 U/L (15-37) 10/11/19 12:36 ALT 25 U/L (13-61) 10/11/19 12:36 Alkaline Phosphatase 74 U/L (45-117) 10/11/19 12:36 Total Protein 6.4 g/dl (6.4-8.2) 10/11/19 12:36 Albumin 3.5 g/dl (3.4-5.0) 10/11/19 12:36 Acetaminophen <2.0 10/11/19 14:30 Alcohol, Quantitative < 3 mg/dL (0.0-5.0) 10/11/19 12:36 10/11/19 17:21 D/w the hospitalist who accepts the patient for admission. 10/11/19 18:00 Urine Test Results Urine Color Yellow 10/11/19 16:05 Urine Appearance Clear 10/11/19 16:05 Urine pH 6.5 (5.0-8.0) 10/11/19 16:05 Ur Specific [place] 1.023 (1.010-1.035) 10/11/19 16:05 Urine Protein Negative (NEGATIVE) 10/11/19 16:05 Urine Glucose (UA) Negative (NEGATIVE) 10/11/19 16:05 Urine Ketones Trace (NEGATIVE) H 10/11/19 16:05 Urine Blood Negative (NEGATIVE) 10/11/19 16:05 Urine Nitrite Negative (NEGATIVE) 10/11/19 16:05 Urine Bilirubin Negative (NEGATIVE) 10/11/19 16:05 Ur Leukocyte Esterase Negative (NEGATIVE) 10/11/19 16:05 Discharge - Discharge Information Problems reviewed: Yes Clinical Impression/Diagnosis: Seizure Condition: Stable - Admission Yes - Follow up/Referral - Patient Discharge Instructions - Post Discharge Activity
[2019-10-11 13:20] LABS: BASO % 0.6 % (0-2.0); EOS % 1.1 % (0-4.5); HEMATOCRIT 45.4 % (35.4-49); HEMOGLOBIN 15.2 GM/dL (11.7-16.9); LYMPH % 20.2 % (8-40); MCHC 33.5 g/dl (32.0-35.9); MEAN CELL VOLUME 92.5 fl (80-96); MEAN PLT VOLUME 9.1 fl (7.5-11.1); MONO % 5.6 % (3.8-10.2); NEUT % 72.5 % (42.8-82.8); PLATELET COUNT 211 K/MM3 (134-434); RBC 4.91 M/mm3 (4.00-5.60); RDW 12.8 % (11.9-15.9); WHITE BLOOD COUNT 7.1 K/mm3 (4.0-10.0)
[2019-10-11 13:59] LABS: ALBUMIN 3.5 g/dl (3.4-5.0); ALK PHOS 74 U/L (45-117); ANION GAP 6 MMOL/L (8-16); BILIRUBIN,TOTAL 0.4 mg/dL (0.2-1); CALCIUM 8.9 mg/dL (8.5-10.1); CHLORIDE 107 mmol/L (98-107); CO2 26 mmol/L (21-32); CREATININE 0.7 mg/dL (0.55-1.3); GLUCOSE,RANDOM 101 mg/dL (74-106); POTASSIUM 4.1 mmol/L (3.5-5.1); SGOT/AST 23 U/L (15-37); SGPT/ALT 25 U/L (13-61); SODIUM 140 mmol/L (136-145); TOT PROT 6.4 g/dl (6.4-8.2)
--- NOTE | 2019-10-11 15:41 | CON.NEURO ---
Consult Consult Specialty:: Kyaw Referred by:: ER - History of Present Illness History of Present Illness: 33 year old man with PMH of polysubstance drug abuse history of seizure disorder who presented to the hospital with 3 breakthrough seizure patient was stepwise in the emergency room no indication for acute intervention CAT scan of the head revealed no evidence of acute pathology patient was loaded on the Keppra patient was supposed to see me in the office forced patient was groggy and the decision was made to admit the patient for observation. - History Source History Provided By: Patient Limitations to Obtaining History: No Limitations - Alcohol/Substance Use Hx Alcohol Use: No - Smoking History Smoking history: Unknown if ever smoked Have you smoked in the past 12 months: No Aproximately how many cigarettes per day: 20 Home Medications - Allergies Allergies/Adverse Reactions: Allergies Allergy/AdvReac Type Severity Reaction Status Date / Time No Known Allergies Allergy Verified 10/11/19 12:10 - Home Medications Home Medications: Ambulatory Orders Lamotrigine [Lamictal -] 100 mg PO BID 08/30/19 Quetiapine Fumarate [Seroquel -] 400 mg PO HS 08/30/19 traZODone HCL [Trazodone HCl] 200 mg PO DAILY 08/30/19 Cephalexin Monohydrate [Keflex -] 500 mg PO BID 7 Days #14 capsule 09/20/19 Family Medical History Family History: Unable to Obtain Review of Systems - Review of Systems Constitutional: reports: No Symptoms Eyes: reports: No Symptoms HENT: reports: No Symptoms Neurological: reports: Headache, Incoordination, Numbness Physical Exam-Neuro Vital Signs: Vital Signs Temperature 98 F 10/11/19 12:44 Pulse Rate 95 H 10/11/19 14:05 Respiratory Rate 16 10/11/19 14:05 Blood Pressure 131/81 10/11/19 14:05 O2 Sat by Pulse Oximetry (%) 100 10/11/19 14:05 Constitutional: Yes: Well Nourished Neck: Yes: WNL Cardiovascular: Yes: WNL Respiratory: Yes: WNL Labs: CBC, BMP 10/11/19 12:36 10/11/19 12:36 - Neuro Exam Level Of Consciousness: Yes: Oriented to Person, Oriented to Place, Oriented to Time Eyes: Yes: PERRLA Speech: WNL Dominant Hand: Right Cranial Nerves II-XII Intact: Yes Gag: Present DTR's: 1+ Left Bicep, 1+ Right Bicep, 1+ Left Tricep, 1+ Right Tricep Response to light touch: Normal Response to pain prick: Normal Response to temperature: Normal Motor Strength: 3/5: Left Arm, Right Arm, Left Leg, Right Leg Gait: Deferred Imaging - Results Cat Scan: Image Reviewed Problem List - Problems (1) Seizure Code(s): R56.9 - UNSPECIFIED CONVULSIONS Assessment/Plan 1. seizure precautions. 2. Ativan when necessary seizure. 3. We'll coordinate an MRI of the brain with no contrast as an outpatient. 4. Increase Lamictal to 200 mg twice daily. Thank you very much for allowing me to be part of this patient's neurological care. Carleen Card MD
--- NOTE | 2019-10-11 16:23 | PDOC ---
Documentation entered by Brody Vail SCRIBE, acting as scribe for Conner Ojeda MD. Conner Ojeda MD: This documentation has been prepared by the Yared senior Daniel, SCRIBE, under my direction and personally reviewed by me in its entirety. I confirm that the documentation accurately reflects all work, treatment, procedures, and medical decision making performed by me. Attending Attestation - Resident Resident Name: Zac Hayes - ED Attending Attestation I have performed the following: I have examined & evaluated the patient, The case was reviewed & discussed with the resident, I agree w/resident's findings & plan, Exceptions are as noted - HPI HPI: 10/11/19 12:25 The patient is a 33 year old male with a past medical history of seizures and polysubstance abuse here today for evaluation of seizures. The patient reports that he had 1 seizure this morning and 1 20 minutes ago while at the [facility]. History was difficult to obtain due to the patient answering questions selectively. Allergies: NKA - Physicial Exam PE: 10/11/19 12:25 GENERAL: Awake, alert, and fully oriented, in no acute distress HEAD: No signs of trauma EYES: PERRLA, EOMI, sclera anicteric, conjunctiva clear ENT: Oropharynx clear without exudates. Moist mucosa. No tongue trauma NECK: Normal ROM, supple, no lymphadenopathy, JVD, or masses LUNGS: Breath sounds equal, clear to auscultation bilaterally. No wheezes, and no crackles HEART: Regular rate and rhythm, normal S1 and S2, no murmurs, rubs or gallops ABDOMEN: Soft, nontender, normoactive bowel sounds. No guarding, no rebound. No masses EXTREMITIES: Normal range of motion, no edema. No cords, erythema, or tenderness BACK: No midline spinal tenderness in cervical/thoracic/lumbar region NEUROLOGICAL: Normal speech, cranial nerves intact, negative pronator drift, 5/ 5 strength in all 4 extremities, normal sensation to light touch in all 4 extremities, normal cerebellar exam, normal gait, normal tone SKIN: Warm, Dry, normal turgor, no rashes or lesions noted. - Medical Decision Making 10/11/19 16:19 33yo M hx PSA, seizure d/o presents to the ED with 2-3 GTC seizures. Pt is poor historian, evasive about questions regarding drug/etoh use States he has not taken AEDs although he is supposed to Unclear if cause of seizures is med non compliance +/- drug use or withdrawal Pt is undomiciled, has no f/u Case discussed with Dr. Card, will load with lamictal, admit for monitoring 10/11/19 16:[address] Sanabria (signed out by Dr. Hayes) Case discussed in detail with admitting physician including history, physical exam and ancillary studies. Admitting physician has assumed care for the patient, will follow all pending diagnostics and will complete the evaluation and treatment. Heart Score/ECG Review #1 10/11/19 16:22 Twelve-lead EKG was performed and reviewed by me. Normal sinus rhythm, rate 77. Normal axis and intervals. No ST elevations or T wave inversions.
--- NOTE | 2019-10-11 16:45 | HP ---
CHIEF COMPLAINT: seizures PCP: none HISTORY OF PRESENT ILLNESS: Patient not cooperating. Upset and sedated. Poor historian at the moment. Patient is a 33 yo homeless, M with a pmhx of polysubtance abuse (alcohol, cocaine), presenting to the ER after 3 witnessed tonic clonic seizures. Patient was at the [facility] when staff witnessed 2 seizures. EMS then arrived and they witnessed the 3rd episode which lasted 30 seconds. Patient was given 5mg of Versed. Patient states he was never diagnosed with seizures from a doctor but says he's had similar episodes in the past year. He states that he is scared and doesn't know what is going on. He does not follow with a neurologist. Does not take any seizure medications. Denies tongue biting or urinary incontinence. Denies headache, chest pain, or any other complaints at this time. When asked about drug use, patient denies it. ER course was notable for: (1) Neuro consulted. started on Lamictal 200mg BID Recent Travel: denies PAST MEDICAL HISTORY: per HPI PAST SURGICAL HISTORY: denies Social History: denies drugs and alcohol but has history of polysubstance abuse Smoking: says he smokes occasionally Alcohol: denies Drugs: denies Allergies No Known Allergies Allergy (Verified 10/11/19 12:10) HOME MEDICATIONS: Home Medications Medication Instructions Recorded Lamotrigine [Lamictal -] 100 mg PO BID 08/30/19 Quetiapine Fumarate [Seroquel -] 400 mg PO HS 08/30/19 traZODone HCL [Trazodone HCl] 200 mg PO DAILY 08/30/19 Cephalexin Monohydrate [Keflex -] 500 mg PO BID 7 Days #14 capsule 09/20/19 REVIEW OF SYSTEMS per HPI PHYSICAL EXAMINATION Vital Signs - 24 hr 10/11/19 10/11/19 10/11/19 12:07 12:44 14:05 Temperature 98 F Pulse Rate 94 H Pulse Rate [ 86 95 H Left Apical] Respiratory 16 18 16 Rate Blood Pressure 119/74 Blood Pressure 118/72 131/81 [Right Arm] O2 Sat by Pulse 100 97 100 Oximetry (%) 10/11/19 15:05 Temperature 98.2 F Pulse Rate Pulse Rate [ 74 Left Apical] Respiratory 16 Rate Blood Pressure Blood Pressure [Right Arm] O2 Sat by Pulse 98 Oximetry (%) GENERAL: a/o x3, resting, comfortable, not cooperative. HEAD: Normal with no signs of trauma. EYES: conjunctiva clear EARS, NOSE, THROAT: Moist mucous membranes. LUNGS: lungs cta b/l HEART: Regular rate and rhythm, normal S1 and S2 without murmur, rub or gallop. ABDOMEN: Soft, nontender, not distended, normoactive bowel sounds LOWER EXTREMITIES: 2+ pulses, warm, well-perfused. No calf tenderness. No peripheral edema. NEUROLOGICAL: unable to perform due to patient refusing full exam. but appears grossly intact Laboratory Results - last 24 hr 10/11/19 10/11/19 10/11/19 12:36 12:36 14:30 WBC 7.1 RBC 4.91 Hgb 15.2 Hct 45.4 MCV 92.5 MCH 31.0 MCHC 33.5 RDW 12.8 Plt Count 211 MPV 9.1 Absolute Neuts (auto) 5.1 Neutrophils % 72.5 D Lymphocytes % 20.2 D Monocytes % 5.6 Eosinophils % 1.1 Basophils % 0.6 Nucleated RBC % 0 Sodium 140 Potassium 4.1 Chloride 107 Carbon Dioxide 26 Anion Gap 6 L BUN 11.0 Creatinine 0.7 Est GFR (CKD-EPI)AfAm 143.71 Est GFR (CKD-EPI)NonAf 123.99 Random Glucose 101 Calcium 8.9 Total Bilirubin 0.4 AST 23 ALT 25 Alkaline Phosphatase 74 Total Protein 6.4 Albumin 3.5 Acetaminophen <2.0 Alcohol, Quantitative < 3 ASSESSMENT/PLAN: 33 yo M with a pmhx of polysubtance abuse (alcohol, cocaine), presenting to the ER after 3 witnessed tonic clonic seizures. #Tonic Clonic Seizures -patient with history of similar episodes in the past -Neuro consulted: Dr. Card -started on Lamotrigine 200mg BID -lamotrigine level in AM -ativan as needed for seizure -Brain without contrast as an outpatient. -seizure precautions #hx of polysubtance abuse -denies at this time -utox pending #FEN -no iv fluids -monitor -regular diet #DVT ppx -EAB Visit type - Emergency Visit Emergency Visit: Yes ED Registration Date: 10/11/19 Care time: The patient presented to the Emergency Department on the above date and was hospitalized for further evaluation of their emergent condition. - New Patient This patient is new to me today: Yes Date on this admission: 10/11/19 - Critical Care Critical Care patient: No ATTENDING PHYSICIAN STATEMENT I saw and evaluated the patient. I reviewed the resident's note and discussed the case with the resident. I agree with the resident's findings and plan as documented. SUBJECTIVE: OBJECTIVE: ASSESSMENT AND PLAN:
[2019-10-11 16:57] LABS: PH,URINE 6.5 (5.0-8.0); URINE APPEARANCE CLEAR; URINE BILIRUBIN NEGATIVE (NEGATIVE); URINE COLOR YELLOW; URINE GLUCOSE (UA) NEGATIVE (NEGATIVE); URINE KETONE TRACE (NEGATIVE); URINE LEUK ESTERASE NEGATIVE (NEGATIVE); URINE NITRITE NEGATIVE (NEGATIVE); URINE PROTEIN NEGATIVE (NEGATIVE)
[2019-10-11 17:55] LABS: METHADONE, UR NEGATIVE ng/ml (CUTOFF=300); OPIATES, URI NEGATIVE ng/ml (CUTOFF=300); PHENCYCLIDINE,URINE NEGATIVE ng/ml (CUTOFF=25); URINE AMPHETAMINES NEGATIVE ng/ml (CUTOFF=500); URINE BARBITURATES NEGATIVE ng/ml (CUTOFF=200)
[2019-10-11 18:13] LABS: URINE BENZODIAZEPINES POSITIVE ng/ml (CUTOFF=200)
[2019-10-11 18:14] LABS: COCAINE, UR POSITIVE ng/ml (CUTOFF=300)
--- NOTE | 2019-10-11 18:53 | PN ---
Teaching Attending Note Name of Resident: Giovani Lees ATTENDING PHYSICIAN STATEMENT I saw and evaluated the patient. I reviewed the resident's note and discussed the case with the resident. I agree with the resident's findings and plan as documented. SUBJECTIVE: Seen and examined at bedside, lethargic 33 year old homeless male with a history of polysubstance abuse presents after 3 witnessed tonic clonic seizures. Has had similar episodes in the past, patient is a poor historian. Denies recent drug use. OBJECTIVE: PE: GENERAL: NAD HEAD: NCAT, no trauma identified LUNGS: lungs cta b/l, no wrr unlabored HEART: RRR, no mrg ABDOMEN: soft, ntnd, nabs EXT: no edema, 2+ dpp NEUROLOGICAL: difficult to assess given lethargy post versed, answering questions, nodding off, motor strength 5/5 all ext 10/11/19 10/11/19 10/11/19 12:07 12:44 14:05 Temperature 98 F Pulse Rate 94 H Pulse Rate [ 86 95 H Left Apical] Respiratory 16 18 16 Rate Blood Pressure 119/74 Blood Pressure 118/72 131/81 [Right Arm] O2 Sat by Pulse 100 97 100 Oximetry (%) 10/11/19 15:05 Temperature 98.2 F Pulse Rate Pulse Rate [ 74 Left Apical] Respiratory 16 Rate Blood Pressure Blood Pressure [Right Arm] O2 Sat by Pulse 98 Oximetry (%) Current Medications Lamotrigine (Lamictal -) 200 mg PO BID MYLA Laboratory Results - last 24 hr 10/11/19 10/11/19 10/11/19 12:36 12:36 14:30 WBC 7.1 RBC 4.91 Hgb 15.2 Hct 45.4 MCV 92.5 MCH 31.0 MCHC 33.5 RDW 12.8 Plt Count 211 MPV 9.1 Absolute Neuts (auto) 5.1 Neutrophils % 72.5 D Lymphocytes % 20.2 D Monocytes % 5.6 Eosinophils % 1.1 Basophils % 0.6 Nucleated RBC % 0 Sodium 140 Potassium 4.1 Chloride 107 Carbon Dioxide 26 Anion Gap 6 L BUN 11.0 Creatinine 0.7 Est GFR (CKD-EPI)AfAm 143.71 Est GFR (CKD-EPI)NonAf 123.99 Random Glucose 101 Calcium 8.9 Total Bilirubin 0.4 AST 23 ALT 25 Alkaline Phosphatase 74 Total Protein 6.4 Albumin 3.5 Urine Color Urine Appearance Urine pH Ur Specific [place] Urine Protein Urine Glucose (UA) Urine Ketones Urine Blood Urine Nitrite Urine Bilirubin Urine Urobilinogen Ur Leukocyte Esterase Opiates Screen Methadone Screen Acetaminophen <2.0 Barbiturate Screen Phencyclidine Screen Ur Amphetamines Screen MDMA (Ecstasy) Screen Benzodiazepines Screen Cocaine Screen U Marijuana (THC) Screen Alcohol, Quantitative < 3 10/11/19 10/11/19 16:05 16:05 WBC RBC Hgb Hct MCV MCH MCHC RDW Plt Count MPV Absolute Neuts (auto) Neutrophils % Lymphocytes % Monocytes % Eosinophils % Basophils % Nucleated RBC % Sodium Potassium Chloride Carbon Dioxide Anion Gap BUN Creatinine Est GFR (CKD-EPI)AfAm Est GFR (CKD-EPI)NonAf Random Glucose Calcium Total Bilirubin AST ALT Alkaline Phosphatase Total Protein Albumin Urine Color Yellow Urine Appearance Clear Urine pH 6.5 Ur Specific [place] 1.023 Urine Protein Negative Urine Glucose (UA) Negative Urine Ketones Trace H Urine Blood Negative Urine Nitrite Negative Urine Bilirubin Negative Urine Urobilinogen 1.0 Ur Leukocyte Esterase Negative Opiates Screen Negative Methadone Screen Negative Acetaminophen Barbiturate Screen Negative Phencyclidine Screen Negative Ur Amphetamines Screen Negative MDMA (Ecstasy) Screen Negative Benzodiazepines Screen Positive A* Cocaine Screen Positive A* U Marijuana (THC) Screen Negative Alcohol, Quantitative ASSESSMENT AND PLAN: 33 year old homeless male with PMHx of polysubtance abuse presents to ED after 3 witnessed tonic clonic seizures. 1) Seizures -given versed and started on lamicatal in ED -ativan PRN -utox -needs MRI, can be done outpatient -neuro eval appreciated -seizure precautions
[2019-10-12 00:06] VITALS: BMI 26.2
[2019-10-12 09:23] LABS: EOS % 1.4 % (0-4.5); HEMATOCRIT 46.3 % (35.4-49); HEMOGLOBIN 15.5 GM/dL (11.7-16.9); LYMPH % 22.3 % (8-40); MCH 30.9 pg (25.7-33.7); MCHC 33.6 g/dl (32.0-35.9); MEAN CELL VOLUME 92.2 fl (80-96); MEAN PLT VOLUME 9.5 fl (7.5-11.1); MONO % 5.3 % (3.8-10.2); PLATELET COUNT 233 K/MM3 (134-434); RBC 5.02 M/mm3 (4.00-5.60); RDW 12.9 % (11.9-15.9); WHITE BLOOD COUNT 7.5 K/mm3 (4.0-10.0)
--- NOTE | 2019-10-12 09:38 | DS ---
Physical Exam: SUBJECTIVE: Patient seen and examined. Offers no new complaints. no events overnight. no new seizures. OBJECTIVE: Vital Signs Period Temp Pulse Resp BP Sys/Butt Pulse Ox Last 24 Hr 97.7 F-98.5 F 73-95 15-20 118-138/69-81 96-100 PHYSICAL EXAM GENERAL: a/o x3, resting, comfortable HEAD: Normal with no signs of trauma. EYES: conjunctiva clear EARS, NOSE, THROAT: Moist mucous membranes. LUNGS: lungs cta b/l HEART: Regular rate and rhythm, normal S1 and S2 without murmur, rub or gallop. ABDOMEN: Soft, nontender, not distended, normoactive bowel sounds LOWER EXTREMITIES: 2+ pulses, warm, well-perfused. No calf tenderness. No peripheral edema. NEUROLOGICAL: CN 2-12 grossly intact LABS Laboratory Results - last 24 hr 10/11/19 10/11/19 10/11/19 12:36 12:36 14:30 WBC 7.1 RBC 4.91 Hgb 15.2 Hct 45.4 MCV 92.5 MCH 31.0 MCHC 33.5 RDW 12.8 Plt Count 211 MPV 9.1 Absolute Neuts (auto) 5.1 Neutrophils % 72.5 D Lymphocytes % 20.2 D Monocytes % 5.6 Eosinophils % 1.1 Basophils % 0.6 Nucleated RBC % 0 Sodium 140 Potassium 4.1 Chloride 107 Carbon Dioxide 26 Anion Gap 6 L BUN 11.0 Creatinine 0.7 Est GFR (CKD-EPI)AfAm 143.71 Est GFR (CKD-EPI)NonAf 123.99 Random Glucose 101 Calcium 8.9 Total Bilirubin 0.4 AST 23 ALT 25 Alkaline Phosphatase 74 Total Protein 6.4 Albumin 3.5 Urine Color Urine Appearance Urine pH Ur Specific [place] Urine Protein Urine Glucose (UA) Urine Ketones Urine Blood Urine Nitrite Urine Bilirubin Urine Urobilinogen Ur Leukocyte Esterase Opiates Screen Methadone Screen Acetaminophen <2.0 Barbiturate Screen Phencyclidine Screen Ur Amphetamines Screen MDMA (Ecstasy) Screen Benzodiazepines Screen Cocaine Screen U Marijuana (THC) Screen Alcohol, Quantitative < 3 10/11/19 10/11/19 10/12/19 16:05 16:05 08:19 WBC 7.5 RBC 5.02 Hgb 15.5 Hct 46.3 MCV 92.2 MCH 30.9 MCHC 33.6 RDW 12.9 Plt Count 233 MPV 9.5 Absolute Neuts (auto) 5.2 Neutrophils % 70.0 Lymphocytes % 22.3 Monocytes % 5.3 Eosinophils % 1.4 Basophils % 1.0 Nucleated RBC % 0 Sodium Potassium Chloride Carbon Dioxide Anion Gap BUN Creatinine Est GFR (CKD-EPI)AfAm Est GFR (CKD-EPI)NonAf Random Glucose Calcium Total Bilirubin AST ALT Alkaline Phosphatase Total Protein Albumin Urine Color Yellow Urine Appearance Clear Urine pH 6.5 Ur Specific [place] 1.023 Urine Protein Negative Urine Glucose (UA) Negative Urine Ketones Trace H Urine Blood Negative Urine Nitrite Negative Urine Bilirubin Negative Urine Urobilinogen 1.0 Ur Leukocyte Esterase Negative Opiates Screen Negative Methadone Screen Negative Acetaminophen Barbiturate Screen Negative Phencyclidine Screen Negative Ur Amphetamines Screen Negative MDMA (Ecstasy) Screen Negative Benzodiazepines Screen Positive A* Cocaine Screen Positive A* U Marijuana (THC) Screen Negative Alcohol, Quantitative HOSPITAL COURSE: Date of Admission:10/11/19 33 yo M with a pmhx of polysubtance abuse (alcohol, cocaine), presenting to the ER after 3 witnessed tonic clonic seizures. #Tonic Clonic Seizures -patient with history of similar episodes in the past -Neuro consulted: Dr. Card -started on Lamotrigine 200mg BID. cont at discharge -Brain without contrast as an outpatient. -follow up with neuro outpatient. -seizure precautions #hx of polysubtance abuse -denies at this time -positive cocaine, benzo in utox -educated patient on importance of quitting drugs. Date of Discharge: 10/12/19 Minutes to complete discharge: 35 Discharge Summary Problems reviewed: Yes Reason For Visit: SEIZURE Current Active Problems Seizure (Acute) Condition: Stable - Instructions Diet, Activity, Other Instructions: You were admitted because you had a seizure. You were seen by a neurologist and was started on a new medication for your seizures. It is important that you see your primary care doctor within 1 week after discharge. You will also need to make an appointment with your neurologist for further studies. Referrals: Mateus Castellanos MD [Staff Physician] - Carleen Card MD [Staff Physician] - 1 Week Disposition: HOME - Home Medications Comprehensive Discharge Medication List: Ambulatory Orders Lamotrigine [Lamictal -] 200 mg PO BID #60 tablet 10/12/19 This patient is new to me today: Yes Date on this admission: 10/12/19 Emergency Visit: Yes ED Registration Date: 10/11/19 Care time: The patient presented to the Emergency Department on the above date and was hospitalized for further evaluation of their emergent condition. Critical Care patient: No - Discharge Referral Referred to [facility] Med P.C.: No ATTENDING PHYSICIAN STATEMENT I saw and evaluated the patient. I reviewed the resident's note and discussed the case with the resident. I agree with the resident's findings and plan as documented. SUBJECTIVE: OBJECTIVE: ASSESSMENT AND PLAN:
[2019-10-12] MEDS ORDERED: PT OWN MED DRAWER 7, Y5N ONE (10:09)
[2019-10-12 10:28] LABS: ALBUMIN 3.3 g/dl (3.4-5.0); BILIRUBIN,TOTAL 0.6 mg/dL (0.2-1); BLOOD UREA NITROGEN 7.6 mg/dL (7-18); CALCIUM 8.7 mg/dL (8.5-10.1); CREATININE 0.7 mg/dL (0.55-1.3); POTASSIUM 4.4 mmol/L (3.5-5.1); TOT PROT 6.4 g/dl (6.4-8.2)
[2019-10-12] MEDS ORDERED: lamoTRIgine 100 MG TABLET PO SCH (11:31)
--- NOTE | 2019-10-12 11:40 | EKG ---
Test Reason : Blood Pressure : / mmHG Vent. Rate : 077 BPM Atrial Rate : 077 BPM P-R Int : 152 ms QRS Dur : 086 ms QT Int : 374 ms P-R-T Axes : -06 038 056 degrees QTc Int : 423 ms NORMAL SINUS RHYTHM NORMAL ECG WHEN COMPARED WITH ECG OF 07-SEP-2019 10:55, NO SIGNIFICANT CHANGE WAS FOUND Confirmed by Zac Ramos MD ([id number]) on 10/12/2019 11:39:30 AM Referred By: Confirmed By:Zac Ramos MD
[2019-10-12 14:06] VITALS: BP 137/74; PULSE 105; TEMP 99.4
--- NOTE | 2019-10-12 14:28 | PN ---
Teaching Attending Note Name of Resident: Giovani Lees ATTENDING PHYSICIAN STATEMENT I saw and evaluated the patient. I reviewed the resident's note and discussed the case with the resident. I agree with the resident's findings and plan as documented. SUBJECTIVE: seen at bedside. no acute events overnight, feeling well, no further seizures OBJECTIVE: Vital Signs - 24 hr 10/11/19 10/11/19 10/11/19 15:05 22:24 23:40 Temperature 98.2 F 98.5 F Pulse Rate 87 Pulse Rate [ 74 73 Left Apical] Respiratory 16 18 15 Rate Blood Pressure 138/78 Blood Pressure 123/72 [Right Arm] O2 Sat by Pulse 98 99 96 Oximetry (%) 10/12/19 10/12/19 10/12/19 06:23 09:00 10:00 Temperature 97.7 F 99.4 F Pulse Rate 79 105 H Pulse Rate [ Left Apical] Respiratory 20 20 20 Rate Blood Pressure 130/69 137/74 Blood Pressure [Right Arm] O2 Sat by Pulse 98 Oximetry (%) PE: GENERAL: NAD LUNGS: lungs cta b/l, no wrr unlabored HEART: RRR, no mrg ABDOMEN: soft, ntnd, nabs EXT: no edema, 2+ dpp NEUROLOGICAL: grossly normal Current Medications Lamotrigine (Lamictal -) 200 mg PO BID MYLA Laboratory Results - last 24 hr 10/11/19 10/11/19 10/11/19 14:30 16:05 16:05 WBC RBC Hgb Hct MCV MCH MCHC RDW Plt Count MPV Absolute Neuts (auto) Neutrophils % Lymphocytes % Monocytes % Eosinophils % Basophils % Nucleated RBC % Sodium Potassium Chloride Carbon Dioxide Anion Gap BUN Creatinine Est GFR (CKD-EPI)AfAm Est GFR (CKD-EPI)NonAf Random Glucose Calcium Total Bilirubin AST ALT Alkaline Phosphatase Total Protein Albumin Urine Color Yellow Urine Appearance Clear Urine pH 6.5 Ur Specific [place] 1.023 Urine Protein Negative Urine Glucose (UA) Negative Urine Ketones Trace H Urine Blood Negative Urine Nitrite Negative Urine Bilirubin Negative Urine Urobilinogen 1.0 Ur Leukocyte Esterase Negative Opiates Screen Negative Methadone Screen Negative Acetaminophen <2.0 Barbiturate Screen Negative Phencyclidine Screen Negative Ur Amphetamines Screen Negative MDMA (Ecstasy) Screen Negative Benzodiazepines Screen Positive A* Cocaine Screen Positive A* U Marijuana (THC) Screen Negative 10/12/19 10/12/19 08:19 08:19 WBC 7.5 RBC 5.02 Hgb 15.5 Hct 46.3 MCV 92.2 MCH 30.9 MCHC 33.6 RDW 12.9 Plt Count 233 MPV 9.5 Absolute Neuts (auto) 5.2 Neutrophils % 70.0 Lymphocytes % 22.3 Monocytes % 5.3 Eosinophils % 1.4 Basophils % 1.0 Nucleated RBC % 0 Sodium 141 Potassium 4.4 Chloride 108 H Carbon Dioxide 27 Anion Gap 6 L BUN 7.6 Creatinine 0.7 Est GFR (CKD-EPI)AfAm 143.71 Est GFR (CKD-EPI)NonAf 123.99 Random Glucose 86 Calcium 8.7 Total Bilirubin 0.6 AST 34 ALT 23 Alkaline Phosphatase 71 Total Protein 6.4 Albumin 3.3 L Urine Color Urine Appearance Urine pH Ur Specific [place] Urine Protein Urine Glucose (UA) Urine Ketones Urine Blood Urine Nitrite Urine Bilirubin Urine Urobilinogen Ur Leukocyte Esterase Opiates Screen Methadone Screen Acetaminophen Barbiturate Screen Phencyclidine Screen Ur Amphetamines Screen MDMA (Ecstasy) Screen Benzodiazepines Screen Cocaine Screen U Marijuana (THC) Screen ASSESSMENT AND PLAN: 33 year old homeless male with PMHx of polysubtance abuse presents to ED after 3 witnessed tonic clonic seizures. 1) Seizures -would continue with lamictal -utox positive for cocaine and BZD, patient counseling -needs MRI, can be done outpatient -neuro eval -stable for dc with close followup for mri brain and medication adherence
== END 2019-10-12 14:28 | disposition home or self-care (01) | DRG 53 ==
LOC: JER 12:04 → JERBED 16:23 → J8W 23:36
PROVIDERS: ADMIT Internal Medicine; ATTEND Internal Medicine
DX: G40.401 Other generalized epilepsy and epileptic syndromes, not intractable, with status epilepticus (principal); F14.10 Cocaine abuse, uncomplicated; F13.10 Sedative, hypnotic or anxiolytic abuse, uncomplicated
CPT/HCPCS: 36415; 70450-TC; 71045-TC-FY; 72125-TC; 80053; 80175; 80307; 81003; 85025; 93005; 93010; 99285-25

== ENCOUNTER 2019-11-06 04:43 | Inpatient (IN) | payer OTHER ==
[2019-11-06] MEDS ORDERED: SODIUM CHLORIDE 1,000 ML IV STA (05:15)
[2019-11-06] MEDS ORDERED: KETOROLAC TROMETHAMINE 30 MG/1 ML VIAL IVPUSH ONE (05:16)
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
[2019-11-06 05:26] VITALS: BMI 24.3
--- NOTE | 2019-11-06 05:26 | PDOC ---
Attending Attestation - Resident Resident Name: SkylaLisa - ED Attending Attestation I have performed the following: I have examined & evaluated the patient, The case was reviewed & discussed with the resident, I agree w/resident's findings & plan - HPI HPI: 11/06/19 05:26 Pt comes with wwithdrawal from benzo and cocaine. 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 Pt's bilat hands are swollen Pt has no abd pain lungs clear no flank pain Pt has bilateral leg swelling and redness/erythema of the legs.?DVT ? rhematologic condition pt has psoriatic plaques on his knee caps bilaterally neuro intact - Medical Decision Making 11/06/19 05:54 hydrate, meds, labs , cxr, dvt duplex sono; pt will be signed out to the ER attending. Heart Score/ECG Review - ECG Intrepretation Rhythm: Regular Rhythm - [place]: Normal - P and NM Prominent R with upright T in V1 (true posterior RI): No Delta Wave(s) Present: No WPW: No - ST and T Early Repolarization: No Non Specific ST-T Wave changes: No Flattened T Waves: No Prolonged Q-T Interval: No - ECG Impressions Normal ECG: Yes Non-specific ST Elevation: No Ischemic Changes: No Bradycardia: No
[2019-11-06] MEDS ORDERED: DEXAMETHASONE SOD PHOSPHATE 10 MG/1 ML VIAL IVPUSH ONE (05:43)
[2019-11-06] MEDS ORDERED: KETOROLAC TROMETHAMINE 30 MG/1 ML VIAL ONE (05:48)
[2019-11-06] MEDS ORDERED: LORazepam 2 MG/ML SDV VIAL ONE (05:48)
[2019-11-06] MEDS ORDERED: DEXAMETHASONE SOD PHOSPHATE 10 MG/1 ML VIAL ONE (05:48)
[2019-11-06] MEDS ORDERED: ASPIRIN 81 MG CHEWABLE TABLETS PO ONE (06:18)
[2019-11-06 06:28] LABS: BASO % 0.5 % (0-2.0); EOS % 0.2 % (0-4.5); HEMATOCRIT 44.2 % (35.4-49); HEMOGLOBIN 15.4 GM/dL (11.7-16.9); LYMPH % 21.3 % (8-40); MCH 31.7 pg (25.7-33.7); MEAN CELL VOLUME 90.7 fl (80-96); MEAN PLT VOLUME 8.5 fl (7.5-11.1); MONO % 8.2 % (3.8-10.2); NEUT % 69.8 % (42.8-82.8); PLATELET COUNT 228 K/MM3 (134-434); RBC 4.87 M/mm3 (4.00-5.60); RDW 12.6 % (11.9-15.9); WHITE BLOOD COUNT 9.3 K/mm3 (4.0-10.0)
[2019-11-06] MEDS ORDERED: ASPIRIN 81 MG CHEWABLE TABLETS ONE (06:33)
[2019-11-06 06:55] LABS: ALBUMIN 4.2 g/dl (3.4-5.0); ALK PHOS 82 U/L (45-117); ANION GAP 6 MMOL/L (8-16); BILIRUBIN,TOTAL 0.9 mg/dL (0.2-1); BLOOD UREA NITROGEN 16.3 mg/dL (7-18); CALCIUM 9.1 mg/dL (8.5-10.1); CHLORIDE 102 mmol/L (98-107); CO2 26 mmol/L (21-32); CREATININE 0.8 mg/dL (0.55-1.3); GLUCOSE,RANDOM 77 mg/dL (74-106); POTASSIUM 4.1 mmol/L (3.5-5.1); SGOT/AST 38 U/L (15-37); SGPT/ALT 35 U/L (13-61); SODIUM 134 mmol/L (136-145); TOT PROT 7.5 g/dl (6.4-8.2)
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
--- NOTE | 2019-11-06 07:18 | PDOC ---
*Physical Exam - Vital Signs Last Vital Signs Temp Pulse Resp BP Pulse Ox 97.4 F L 90 18 122/85 100 11/06/19 04:50 11/06/19 04:50 11/06/19 04:50 11/06/19 04:50 11/06/19 04:50 - Physical Exam 11/06/19 09:14 Gen: sleeping, arousable heart: +s1s2 reg lungs: cta b/l abd: soft, nt/nd +bs ext: erythema to b/l hands, b/l warmth, redness to b/l LE around knees/thighs ED Treatment Course - LABORATORY CBC & Chemistry Diagram: 11/06/19 05:40 11/06/19 05:40 - ADDITIONAL ORDERS Additional order review: Laboratory Results 11/06/19 11/06/19 11/06/19 05:40 05:40 05:40 Sodium 134 L Potassium 4.1 Chloride 102 Carbon Dioxide 26 Anion Gap 6 L BUN 16.3 Creatinine 0.8 Est GFR (CKD-EPI)AfAm 135.08 Est GFR (CKD-EPI)NonAf 116.55 Random Glucose 77 Calcium 9.1 Total Bilirubin 0.9 AST 38 H ALT 35 Alkaline Phosphatase 82 Creatine Kinase 315 H Cancelled Troponin I < 0.02 Cancelled Total Protein 7.5 Albumin 4.2 Salicylates Acetaminophen Alcohol, Quantitative < 3 11/06/19 11/06/19 05:40 05:40 Sodium Potassium Chloride Carbon Dioxide Anion Gap BUN Creatinine Est GFR (CKD-EPI)AfAm Est GFR (CKD-EPI)NonAf Random Glucose Calcium Total Bilirubin AST ALT Alkaline Phosphatase Creatine Kinase Troponin I Total Protein Albumin Salicylates < 1.7 L Acetaminophen <2 Alcohol, Quantitative 11/06/19 05:40 RBC 4.87 MCV 90.7 MCHC 35.0 RDW 12.6 MPV 8.5 D Neutrophils % 69.8 Lymphocytes % 21.3 Monocytes % 8.2 Eosinophils % 0.2 D Basophils % 0.5 - Medications Given in the ED: ED Medications Discontinued Medications Generic Name Dose Route Start Last Admin Trade Name Freq PRN Reason Stop Dose Admin Aspirin 324 mg 11/06/19 06:18 11/06/19 06:35 Asa - PO 11/06/19 06:19 324 mg ONCE ONE Administration Dexamethasone Sodium Phosphate 10 mg 11/06/19 05:43 11/06/19 05:56 Decadron Injection - IVPUSH 11/06/19 05:44 10 mg ONCE ONE Administration Diphenhydramine HCl 50 mg 11/06/19 05:41 11/06/19 05:56 Benadryl Injection - IVPB 11/06/19 05:42 50 mg ONCE ONE Administration Sodium Chloride 1,000 mls @ 1,000 mls/hr 11/06/19 05:15 11/06/19 05:56 Normal Saline - IV 11/06/19 06:14 1,000 mls/hr ASDIR STA Administration Ketorolac Tromethamine 30 mg 11/06/19 05:16 11/06/19 05:56 Toradol Injection - IVPUSH 11/06/19 05:17 30 mg ONCE ONE Administration Lorazepam 2 mg 11/06/19 05:15 11/06/19 05:56 Ativan Injection - IVPUSH 11/06/19 05:16 2 mg ONCE ONE Administration Medical Decision Making - Medical Decision Making 11/06/19 09:17 a/p: 34yo male with arm and leg redness -pt states he skin pops -concern for cellulitis vs frostbite -limbs/extremities warmth -pt is nondomiciled -will send labs, pt refused ultrasound, no calf ttp, low suspicion for dvt -will start iv abx -cultures sent -will need admission 11/06/19 09:20 labs reviewed no elevated wbc 11/06/19 09:40 resident discussed the case with ADAM who accepts pt to service Discharge - Discharge Information Problems reviewed: Yes Clinical Impression/Diagnosis: Cellulitis Condition: Fair - Admission Yes - Follow up/Referral - Patient Discharge Instructions - Post Discharge Activity
[2019-11-06] MEDS ORDERED: PIPERACILLIN/TAZOB 4.5 GM 4.5 GM in DEXTROSE 5%-WATER 100 ML IVPB ONE (08:55)
[2019-11-06] MEDS ORDERED: VANCOMYCIN 1,000 MG in DEXTROSE 5%-WATER - 250 ML IVPB ONE (08:55)
[2019-11-06] MEDS ORDERED: VANCOMYCIN 1 GRAM (PRE-DOCKED) 1,000 MG/250 ML BAG IVPB ONE (09:43)
[2019-11-06] MEDS ORDERED: PIPERACILLIN/TAZOB 4.5 GM 4.5 GM/100 ML BAG IVPB ONE (09:44)
--- NOTE | 2019-11-06 12:03 | EKG ---
Test Reason : Blood Pressure : / mmHG Vent. Rate : 074 BPM Atrial Rate : 074 BPM P-R Int : 162 ms QRS Dur : 086 ms QT Int : 400 ms P-R-T Axes : 008 071 054 degrees QTc Int : 444 ms UNUSUAL P AXIS, POSSIBLE ECTOPIC ATRIAL RHYTHM VS Normal sinus WHEN COMPARED WITH ECG OF 11-OCT-2019 14:45, NO SIGNIFICANT CHANGE WAS FOUND Confirmed by ALFREDA JORGE MD ([id number]) on 11/06/2019 12:03:09 PM Referred By: Confirmed By:ALFREDA JORGE MD
--- NOTE | 2019-11-06 12:42 | HP ---
CHIEF COMPLAINT: bazzi bite/chest pain HISTORY OF PRESENT ILLNESS: Mr. Betancur is a 34y/o male with hx of seizures, crack cocaine use and BZD use disorders who presents for bazzi bite on hands and chest pain. Per EMR, the patient had chest pain for 5 hours prior to arrival. He reports smoking crack cocaine, but denies IV cocaine use. He also uses Xanax. Pt is undomiciled. Pt was not cooperative during interview. ER course was notable for: (1) chest pain- ASA, EKG HR 74, no ST changes, QTc 444 (2) erythema- dexamethasone, Vanc, Zosyn, benadryl, toradol, blood cultures (3) BZD use/agitation- ativan PAST MEDICAL HISTORY: seizures, crack cocaine use and BZD use disorders PAST SURGICAL HISTORY: unknown Social History: Smoking: reports Alcohol: unknown Drugs: crack cocaine and BZD Allergies No Known Allergies Allergy (Verified 10/11/19 12:10) HOME MEDICATIONS: Home Medications Medication Instructions Recorded Lamotrigine [Lamictal -] 200 mg PO BID #60 tablet 10/12/19 REVIEW OF SYSTEMS See HPI PHYSICAL EXAMINATION Vital Signs - 24 hr 11/06/19 11/06/19 04:50 12:06 Temperature 97.4 F L 98.2 F Pulse Rate 90 Pulse Rate [ 93 H Left Radial] Respiratory 18 18 Rate Blood Pressure 122/85 Blood Pressure 90/60 [Left Arm] O2 Sat by Pulse 100 98 Oximetry (%) GENERAL: Somnolent but arousable, fully oriented, in no acute distress. HEAD: Normal with no signs of trauma. EYES: Pupils equal, round and reactive to light, extraocular movements intact, conjunctiva clear. EARS, NOSE, THROAT: Ears normal, nares patent. Moist mucous membranes. NECK: Normal range of motion. LUNGS: Breath sounds equal, clear to auscultation anteriorly. HEART: Regular rate and rhythm, no murmur. ABDOMEN: Soft, nontender, not distended, normoactive bowel sounds. MUSCULOSKELETAL: Normal range of motion at all joints. UPPER EXTREMITIES: Warm, well-perfused. B/l hand erythema and swelling. LOWER EXTREMITIES: Warm, well-perfused, erythematous, scaly popliteal/medial knee aspect b/l with erythema extending into lower legs and into thighs; no open wounds noted NEUROLOGICAL: Normal speech. PSYCHIATRIC: Uncooperative, agitated. SKIN: Warm, dry, normal turgor. WBC 9.3 K/mm3 (4.0-10.0) 11/06/19 05:40 RBC 4.87 M/mm3 (4.00-5.60) 11/06/19 05:40 Hgb 15.4 GM/dL (11.7-16.9) 11/06/19 05:40 Hct 44.2 % (35.4-49) 11/06/19 05:40 MCV 90.7 fl (80-96) 11/06/19 05:40 MCH 31.7 pg (25.7-33.7) 11/06/19 05:40 MCHC 35.0 g/dl (32.0-35.9) 11/06/19 05:40 RDW 12.6 % (11.9-15.9) 11/06/19 05:40 Plt Count 228 K/MM3 (134-434) 11/06/19 05:40 MPV 8.5 fl (7.5-11.1) D 11/06/19 05:40 Absolute Neuts (auto) 6.5 K/mm3 (1.5-8.0) 11/06/19 05:40 Neutrophils % 69.8 % (42.8-82.8) 11/06/19 05:40 Lymphocytes % 21.3 % (8-40) 11/06/19 05:40 Monocytes % 8.2 % (3.8-10.2) 11/06/19 05:40 Eosinophils % 0.2 % (0-4.5) D 11/06/19 05:40 Basophils % 0.5 % (0-2.0) 11/06/19 05:40 Nucleated RBC % 0 % (0-0) 11/06/19 05:40 Sodium 134 mmol/L (136-145) L 11/06/19 05:40 Potassium 4.1 mmol/L (3.5-5.1) 11/06/19 05:40 Chloride 102 mmol/L (98-107) 11/06/19 05:40 Carbon Dioxide 26 mmol/L (21-32) 11/06/19 05:40 Anion Gap 6 MMOL/L (8-16) L 11/06/19 05:40 BUN 16.3 mg/dL (7-18) 11/06/19 05:40 Creatinine 0.8 mg/dL (0.55-1.3) 11/06/19 05:40 Est GFR (CKD-EPI)AfAm 135.08 11/06/19 05:40 Est GFR (CKD-EPI)NonAf 116.55 11/06/19 05:40 Random Glucose 77 mg/dL (74-106) 11/06/19 05:40 Calcium 9.1 mg/dL (8.5-10.1) 11/06/19 05:40 Total Bilirubin 0.9 mg/dL (0.2-1) 11/06/19 05:40 AST 38 U/L (15-37) H 11/06/19 05:40 ALT 35 U/L (13-61) 11/06/19 05:40 Alkaline Phosphatase 82 U/L (45-117) 11/06/19 05:40 Creatine Kinase 315 U/L (26-308) H 11/06/19 05:40 Creatine Kinase Index 2.7 % (0.0-5.0) 11/06/19 05:40 CK-MB (CK-2) 8.8 ng/mL (0.5-3.6) H 11/06/19 05:40 Troponin I < 0.02 ng/ml (0.00-0.05) 11/06/19 05:40 Total Protein 7.5 g/dl (6.4-8.2) 11/06/19 05:40 Albumin 4.2 g/dl (3.4-5.0) 11/06/19 05:40 ASSESSMENT/PLAN: Pt is a 34y/o undomiciled male with hx of seizures, cocaine use disorder, and BZD use disorder who presents with chest pain and redness/swelling of hands, reportedly from bazzi bite. #BZD withdrawal -lorazepam taper -addiction med consult -pt has been to detox in the past #cocaine use disorder -recommend rehab at d/c #hx of seizures -elevated CK -lamotrigine level -lamotrigine 200mg PO BID #frostbite on hands, improved -monitor #b/l leg rashes -?psoriatic -monitor -Aquaphor as needed -consider topical tx if pt is symptomatic FEN PO fluids monitor CK regular diet DVT Ppx Lovenox dispo med/surg social work consulted for placement Visit type - Emergency Visit Emergency Visit: Yes ED Registration Date: 11/06/19 Care time: The patient presented to the Emergency Department on the above date and was hospitalized for further evaluation of their emergent condition. - New Patient This patient is new to me today: Yes Date on this admission: 11/06/19 - Critical Care Critical Care patient: No ATTENDING PHYSICIAN STATEMENT I saw and evaluated the patient. I reviewed the resident's note and discussed the case with the resident. I agree with the resident's findings and plan as documented. SUBJECTIVE: OBJECTIVE: ASSESSMENT AND PLAN:
[2019-11-06] MEDS ORDERED: LORazepam 1 MG TABLET PO PRN (14:36)
[2019-11-06] MEDS ORDERED: LORazepam 2 MG/ML SDV VIAL IVPUSH ONE (14:42)
--- NOTE | 2019-11-06 14:42 | PN ---
Teaching Attending Note Name of Resident: Nayana Stauffer ATTENDING PHYSICIAN STATEMENT I saw and evaluated the patient. I reviewed the resident's note and discussed the case with the resident. I agree with the resident's findings and plan as documented. SUBJECTIVE: Patient is 34yo male, presented to the ED. for having bazzi bites, with Polysubstance abuse ( benzo/cocaine) and states that he is withdrawing. 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 He uses Benzo regularly (buys it on the street), and he is very restless. In ED. patient was given antibiotics for possible cellulitis. Patient is homeless. OBJECTIVE: Vital Signs Temperature 98.2 F 11/06/19 12:06 Pulse Rate 93 H 11/06/19 12:06 Respiratory Rate 18 11/06/19 12:06 Blood Pressure 90/60 11/06/19 12:06 O2 Sat by Pulse Oximetry (%) 98 11/06/19 13:04 GENERAL: The patient is awake, alert, and fully oriented, but restless, agitated. HEAD: Normal with no signs of trauma. EYES: PERRL, extraocular movements intact, sclera anicteric, conjunctiva clear. ENT: Ears normal, oropharynx clear without exudates, moist mucous membranes. NECK: Trachea midline, full range of motion, supple. LUNGS: Breath sounds equal, clear to auscultation bilaterally, no wheezes, no crackles, no accessory muscle use. HEART: Regular rate and rhythm, S1, S2 without murmur, rub or gallop. ABDOMEN: Soft, NT,ND, normoactive bowel sounds, no guarding, no rebound, no hepatosplenomegaly, no masses. EXTREMITIES: 2+ pulses, warm, well-perfused, swollen fingers, NEUROLOGICAL: Cranial nerves II through XII grossly intact. Normal speech, gait not observed. PSYCH: Normal mood, normal affect. SKIN: Warm, dry, normal turgor, no rashes or lesions noted CBCD WBC 9.3 K/mm3 (4.0-10.0) 11/06/19 05:40 RBC 4.87 M/mm3 (4.00-5.60) 11/06/19 05:40 Hgb 15.4 GM/dL (11.7-16.9) 11/06/19 05:40 Hct 44.2 % (35.4-49) 11/06/19 05:40 MCV 90.7 fl (80-96) 11/06/19 05:40 MCHC 35.0 g/dl (32.0-35.9) 11/06/19 05:40 RDW 12.6 % (11.9-15.9) 11/06/19 05:40 Plt Count 228 K/MM3 (134-434) 11/06/19 05:40 MPV 8.5 fl (7.5-11.1) D 11/06/19 05:40 CMP Sodium 134 mmol/L (136-145) L 11/06/19 05:40 Potassium 4.1 mmol/L (3.5-5.1) 11/06/19 05:40 Chloride 102 mmol/L (98-107) 11/06/19 05:40 Carbon Dioxide 26 mmol/L (21-32) 11/06/19 05:40 Anion Gap 6 MMOL/L (8-16) L 11/06/19 05:40 BUN 16.3 mg/dL (7-18) 11/06/19 05:40 Creatinine 0.8 mg/dL (0.55-1.3) 11/06/19 05:40 Random Glucose 77 mg/dL (74-106) 11/06/19 05:40 Calcium 9.1 mg/dL (8.5-10.1) 11/06/19 05:40 Total Bilirubin 0.9 mg/dL (0.2-1) 11/06/19 05:40 AST 38 U/L (15-37) H 11/06/19 05:40 ALT 35 U/L (13-61) 11/06/19 05:40 Alkaline Phosphatase 82 U/L (45-117) 11/06/19 05:40 Total Protein 7.5 g/dl (6.4-8.2) 11/06/19 05:40 Albumin 4.2 g/dl (3.4-5.0) 11/06/19 05:40 CARDIAC ENZYMES Creatine Kinase 315 U/L (26-308) H 11/06/19 05:40 Troponin I < 0.02 ng/ml (0.00-0.05) 11/06/19 05:40 Current Medications Generic Name Dose Route Start Last Admin Trade Name Freq PRN Reason Stop Dose Admin Lorazepam 2 mg 11/06/19 17:00 Ativan PO 11/07/19 23:01 0500,1100,1700,2300 MYLA Lorazepam 0.5 mg 11/09/19 05:00 Ativan - PO 11/09/19 23:01 Q6H MYLA Lorazepam 0.5 mg 11/09/19 00:00 Ativan - PO 11/10/19 00:00 Q4H PRN Symptoms of Withdrawal Lorazepam 0.5 mg 11/10/19 05:00 Ativan - PO 11/10/19 05:01 ONCE ONE Lorazepam 1 mg 11/08/19 05:00 Ativan - PO 11/08/19 23:01 0500,1100,1700,2300 MYLA Lorazepam 1 mg 11/06/19 14:36 Ativan - PO 11/08/19 23:59 Q4H PRN Symptoms of Withdrawal Home Medications Medication Instructions Recorded Lamotrigine [Lamictal -] 200 mg PO BID #60 tablet 10/12/19 ASSESSMENT AND PLAN: Patient is 34yo male, presented to the ED. for having bazzi bites, with Polysubstance abuse ( benzo/cocaine) and states that he is withdrawing. # Polysubstance abuse( cocaine/benzo) withdrawfady , on ativan protocol, dr Petersen for consult #hx of Seizure , withdrawel cAN place the patient into Seizure , will continue his lamictal # bazzi bite but improved #Homeless, SW consult DVt Px: lovenox sq SW consult.
[2019-11-06] MEDS ORDERED: PT OWN MED DRAWER 7, Y5N ONE ×2 (15:32→21:48)
[2019-11-06] MEDS ORDERED: MINERAL OIL/PET HY-PHL TOPICAL OINTMENT 454 GM JAR TP PRN (16:54)
[2019-11-06] MEDS: LORazepam 1 MG TABLET PO SCH (17:05)
[2019-11-06 20:10] VITALS: TEMP 97.9
[2019-11-06] MEDS ORDERED: NICOTINE POLACRILEX 2 MG GUM BUC PRN (21:35)
[2019-11-06] MEDS: lamoTRIgine 100 MG TABLET PO SCH (21:51)
[2019-11-07] MEDS: LORazepam 1 MG TABLET PO SCH ×3 (00:19→10:07)
[2019-11-07 05:43] VITALS: BP 112/54; PULSE 80
[2019-11-07 07:09] LABS: BASO % 0.4 % (0-2.0); EOS % 0.8 % (0-4.5); HEMATOCRIT 39.8 % (35.4-49); HEMOGLOBIN 13.7 GM/dL (11.7-16.9); LYMPH % 38.9 % (8-40); MCH 31.5 pg (25.7-33.7); MCHC 34.4 g/dl (32.0-35.9); MEAN CELL VOLUME 91.6 fl (80-96); MEAN PLT VOLUME 8.6 fl (7.5-11.1); MONO % 8.5 % (3.8-10.2); NEUT % 51.4 % (42.8-82.8); PLATELET COUNT 203 K/MM3 (134-434); RBC 4.35 M/mm3 (4.00-5.60); RDW 12.5 % (11.9-15.9); WHITE BLOOD COUNT 7.2 K/mm3 (4.0-10.0)
[2019-11-07 07:40] LABS: BILIRUBIN,TOTAL 0.6 mg/dL (0.2-1); BLOOD UREA NITROGEN 17.7 mg/dL (7-18); CALCIUM 8.2 mg/dL (8.5-10.1); CREATININE 0.8 mg/dL (0.55-1.3); POTASSIUM 4.2 mmol/L (3.5-5.1); TOT PROT 5.6 g/dl (6.4-8.2)
[2019-11-07] MEDS ORDERED: ENOXAPARIN NA (PORCINE) 40 MG/0.4 ML DISP.SYRIN SQ SCH (10:00)
[2019-11-07] MEDS ORDERED: PT OWN MED DRAWER 7, Y5N ONE (10:04)
[2019-11-07] MEDS: lamoTRIgine 100 MG TABLET PO SCH (10:07)
--- NOTE | 2019-11-07 11:46 | DS ---
Physical Exam: SUBJECTIVE: Patient seen and examined at the bedside. Stated that he was feeling better and wanted to leave because his mother was feeling ill. He denied wanting to continue his detoxification or going to [facility]. Denied cp, sob, abd pain, n/v/c/d, headaches, dizziness, lightheadedness, tremors, hallucinations, delusions. OBJECTIVE: Vital Signs Period Temp Pulse Resp BP Sys/Butt Pulse Ox Last 24 Hr 97.9 F-98.2 F 80-94 18-18 90-114/54-60 98-98 PHYSICAL EXAM GENERAL: The patient is awake, alert, and fully oriented, in no acute distress. Hyperactive HEAD: Normal with no signs of trauma. EYES: PERRL, extraocular movements intact, conjunctiva clear. ENT: Oropharynx clear without exudates, moist mucous membranes. LUNGS: Breath sounds equal, clear to auscultation bilaterally, no wheezes, no crackles, no accessory muscle use. HEART: Regular rate and rhythm, S1, S2 without murmur. ABDOMEN: Soft, nontender, nondistended, normoactive bowel sounds, no guarding, no rebound, no masses. EXTREMITIES: 2+ pulses, warm, well-perfused, no edema. NEUROLOGICAL: Cranial nerves II through XII grossly intact. 5/5 muscle strength bilaterally upper and lower extremities. PSYCH: Pressured speech, hyperactive. SKIN: Warm, dry, normal turgor, psoriatic lesions noted throughout. LABS Laboratory Results - last 24 hr 11/07/19 11/07/19 11/07/19 06:10 06:10 06:10 WBC 7.2 RBC 4.35 Hgb 13.7 Hct 39.8 MCV 91.6 MCH 31.5 MCHC 34.4 RDW 12.5 Plt Count 203 MPV 8.6 Absolute Neuts (auto) 3.7 Neutrophils % 51.4 D Lymphocytes % 38.9 D Monocytes % 8.5 Eosinophils % 0.8 D Basophils % 0.4 Nucleated RBC % 0 Sodium 143 Potassium 4.2 Chloride 109 H Carbon Dioxide 29 Anion Gap 5 L BUN 17.7 Creatinine 0.8 Est GFR (CKD-EPI)AfAm 135.08 Est GFR (CKD-EPI)NonAf 116.55 Random Glucose 79 Calcium 8.2 L Total Bilirubin 0.6 AST 17 ALT 23 Alkaline Phosphatase 60 Creatine Kinase 118 Total Protein 5.6 L Albumin 3.0 L HOSPITAL COURSE: Emanuel Betancur is a 34 year old undomiciled male with a past medical history of seizures, cocaine use disorder, and BZD use disorder admitted for chest pain and benzodiazepine withdrawal. The patient was started on Ativan for BZO withdrawal. Chest pain resolved, EKG and troponins were negative. Patient came in with suspected frostbite and had passive rewarming and subsequently improved. Patient was advised to cease using and non-prescribed medications and to attend a detox and rehab program. Was treated with Aquaphor for his bilateral leg rashes likely secondary to psoriasis. Patient stated that he wanted to leave [facility] due to wanting to check in on his mother who he stated was sick. The patient was advised that leaving the hospital prior to completion of detox protocol can put him at risk of the following risks including but not limited to further withdrawal symptoms, seizures, syncope, falls, trauma, coma, and . Patient stated he understood the risks and signed [facility] paperwork. Was advised to go to [facility] upon his first opportunity. IV was removed and patient left the hospital. Date of Admission:11/06/19 Date of Discharge: 11/07/19 Minutes to complete discharge: 35 Discharge Summary Problems reviewed: Yes Reason For Visit: CELLULITIS Condition: Stable - Instructions Diet, Activity, Other Instructions: You were admitted for chest pain and frostbite of your hands. Your frostbite resolved with warming of your hands and your chest pain resolved without any evidence of hear damage. You are advised to follow up with a primary care doctor. You are advised to follow up with a a occupational rehabilitation aide. You are leaving the hospital against medical advice knowing the risks of including but not limited to potential withdrawal seizures, falls, fevers, coma , . MEDICATIONS Continue to take Aquaphor for your legs. Continue to take all of your home medications as prescribed. REFERRALS Please follow up with your primary care doctor within 1 week. If you do not have a primary care doctor, you may make an appointment with the resident's clinic for which the information is provided. You are advised to follow up with drug rehabilitation. Information for Dr. Petersen, the addiction medicine specialist is provided. SPECIAL INSTRUCTIONS You are advised to follow up for drug rehabilitation and cease using drugs not prescribed to you. If you have symptoms of chest pain, shortness of breath, fevers, collapse, lightheaededness, or any other general feelings of unwellness, please call 911 or go to your nearest emergency room. Referrals: [facility] [place] [Provider Group] - 1 Week Frank Petersen DO [Staff Physician] - 1 Week Disposition: AGAINST MEDICAL ADVICE - Home Medications Comprehensive Discharge Medication List: Ambulatory Orders Lamotrigine [Lamictal -] 200 mg PO BID #60 tablet 10/12/19 LORazepam [Ativan] 0.5 mg PO Q4H PRN tablet MDD 3mg 11/07/19 LORazepam [Ativan] 0.5 mg PO Q6H tablet MDD 2mg 11/07/19 LORazepam [Ativan] 1 mg PO 0500,1100,1700,2300 tablet MDD 4mg 11/07/19 LORazepam [Ativan] 1 mg PO Q4H PRN tablet MDD 6mg 11/07/19 LORazepam [Ativan] 2 mg PO 0500,1100,1700,2300 tablet MDD 8mg 11/07/19 Mineral Oil/Pet Hy-Phl [Aquaphor -] 1 applic TP DAILY PRN jar 11/07/19 Problem List - Problems (1) Benzodiazepine abuse Code(s): F13.10 - SEDATIVE, HYPNOTIC OR ANXIOLYTIC ABUSE, UNCOMPLICATED (2) Non compliance w medication regimen Code(s): Z91.14 - PATIENT'S OTHER NONCOMPLIANCE WITH MEDICATION REGIMEN (3) Post traumatic stress disorder (PTSD) Code(s): F43.10 - POST-TRAUMATIC STRESS DISORDER, UNSPECIFIED (4) Psoriasis Code(s): L40.9 - PSORIASIS, UNSPECIFIED (5) Chest pain Code(s): R07.9 - CHEST PAIN, UNSPECIFIED (6) Dry mucous membranes Code(s): FVX5239 - (7) Erythema of lower extremity Code(s): L53.9 - ERYTHEMATOUS CONDITION, UNSPECIFIED This patient is new to me today: Yes Date on this admission: 11/07/19 Emergency Visit: Yes ED Registration Date: 11/06/19 Care time: The patient presented to the Emergency Department on the above date and was hospitalized for further evaluation of their emergent condition. Critical Care patient: No - Discharge Referral Referred to [facility] Med P.[facility] No
--- NOTE | 2019-11-07 17:04 | PN ---
Teaching Attending Note Name of Resident: Emanuel Khan ATTENDING PHYSICIAN STATEMENT I saw and evaluated the patient. I reviewed the resident's note and discussed the case with the resident. I agree with the resident's findings and plan as documented. SUBJECTIVE: Patient is comfortable with no acute distress, wants to be discharged but if we do not discharge him will sign against medical advice. Patient was explained the risks of signing AMA , withdrawel seizure , as well. Patient understands. Able to make decisions. AAOx3. OBJECTIVE: Vital Signs Temperature 97.9 F 11/07/19 05:40 Pulse Rate 80 11/07/19 05:40 Respiratory Rate 18 11/07/19 05:40 Blood Pressure 112/54 L 11/07/19 05:40 O2 Sat by Pulse Oximetry (%) 98 11/06/19 21:00 GENERAL: The patient is awake, alert, and fully oriented, calm today HEAD: Normal with no signs of trauma. EYES: PERRL, extraocular movements intact, sclera anicteric, conjunctiva clear. ENT: Ears normal, oropharynx clear without exudates, moist mucous membranes. NECK: Trachea midline, full range of motion, supple. LUNGS: Breath sounds equal, clear to auscultation bilaterally, no wheezes, no crackles, no accessory muscle use. HEART: Regular rate and rhythm, S1, S2 without murmur, rub or gallop. ABDOMEN: Soft, NT,ND, normoactive bowel sounds, no guarding, no rebound, no hepatosplenomegaly, no masses. EXTREMITIES: 2+ pulses, warm, well-perfused. NEUROLOGICAL: Cranial nerves II through XII grossly intact. Normal speech, gait is stable . PSYCH: Normal mood, normal affect. SKIN: Warm, dry, normal turgor, no rashes or lesions noted CBCD WBC 7.2 K/mm3 (4.0-10.0) 11/07/19 06:10 RBC 4.35 M/mm3 (4.00-5.60) 11/07/19 06:10 Hgb 13.7 GM/dL (11.7-16.9) 11/07/19 06:10 Hct 39.8 % (35.4-49) 11/07/19 06:10 MCV 91.6 fl (80-96) 11/07/19 06:10 MCHC 34.4 g/dl (32.0-35.9) 11/07/19 06:10 RDW 12.5 % (11.9-15.9) 11/07/19 06:10 Plt Count 203 K/MM3 (134-434) 11/07/19 06:10 MPV 8.6 fl (7.5-11.1) 11/07/19 06:10 CMP Sodium 143 mmol/L (136-145) 11/07/19 06:10 Potassium 4.2 mmol/L (3.5-5.1) 11/07/19 06:10 Chloride 109 mmol/L (98-107) H 11/07/19 06:10 Carbon Dioxide 29 mmol/L (21-32) 11/07/19 06:10 Anion Gap 5 MMOL/L (8-16) L 11/07/19 06:10 BUN 17.7 mg/dL (7-18) 11/07/19 06:10 Creatinine 0.8 mg/dL (0.55-1.3) 11/07/19 06:10 Random Glucose 79 mg/dL (74-106) 11/07/19 06:10 Calcium 8.2 mg/dL (8.5-10.1) L 11/07/19 06:10 Total Bilirubin 0.6 mg/dL (0.2-1) 11/07/19 06:10 AST 17 U/L (15-37) 11/07/19 06:10 ALT 23 U/L (13-61) 11/07/19 06:10 Alkaline Phosphatase 60 U/L (45-117) 11/07/19 06:10 Total Protein 5.6 g/dl (6.4-8.2) L 11/07/19 06:10 Albumin 3.0 g/dl (3.4-5.0) L 11/07/19 06:10 CARDIAC ENZYMES Creatine Kinase 118 U/L (26-308) 11/07/19 06:10 Troponin I < 0.02 ng/ml (0.00-0.05) 11/06/19 05:40 Home Medications Medication Instructions Recorded Lamotrigine [Lamictal -] 200 mg PO BID #60 tablet 10/12/19 LORazepam [Ativan] 0.5 mg PO Q4H PRN tablet MDD 3mg 11/07/19 LORazepam [Ativan] 0.5 mg PO Q6H tablet MDD 2mg 11/07/19 LORazepam [Ativan] 1 mg PO 0500,1100,1700,2300 11/07/19 tablet MDD 4mg LORazepam [Ativan] 1 mg PO Q4H PRN tablet MDD 6mg 11/07/19 LORazepam [Ativan] 2 mg PO 0500,1100,1700,2300 11/07/19 tablet MDD 8mg Mineral Oil/Pet Hy-Phl [Aquaphor -] 1 applic TP DAILY PRN jar 11/07/19 ASSESSMENT AND PLAN: Patient is 34yo male, presented to the ED. for having bazzi bites, with Polysubstance abuse ( benzo/cocaine) and states that he is withdrawing. # Polysubstance abuse( cocaine/benzo) withdrawel , on ativan protocol, dr Petersen for consult, patient wants to leave AMA. explained the risks , understands. #hx of Seizure , withdrawel cAN place the patient into Seizure , will continue his lamictal # bazzi bite but improved #Homeless, SW consult
[2019-11-08] MEDS ORDERED: LORazepam 1 MG TABLET PO SCH (05:00)
[2019-11-09] MEDS ORDERED: LORazepam 0.5 MG TABLET PO PRN
[2019-11-09] MEDS ORDERED: LORazepam 0.5 MG TABLET PO SCH (05:00)
[2019-11-10] MEDS ORDERED: LORazepam 0.5 MG TABLET PO ONE (05:00)
== END 2019-11-07 11:11 | disposition left against medical advice (07) | DRG 815 ==
LOC: JER 04:43 → JERBED 09:05 → J6S 12:35
PROVIDERS: ADMIT Internal Medicine; ATTEND Internal Medicine
DX: T33.521A Superficial frostbite of right hand, initial encounter (principal); L40.9 Psoriasis, unspecified; T33.522A Superficial frostbite of left hand, initial encounter; R07.89 Other chest pain; F14.23 Cocaine dependence with withdrawal; F13.230 Sedative, hypnotic or anxiolytic dependence with withdrawal, uncomplicated; R56.9 Unspecified convulsions; F19.20 Other psychoactive substance dependence, uncomplicated; R21 Rash and other nonspecific skin eruption; Z59.0 Homelessness
CPT/HCPCS: 36415; 71045-TC-FY; 80053; 80175; 80307; 82550; 82553; 84484; 85025; 87040; 93005; 93010; 99285-25; J1100; J7030

== ENCOUNTER 2019-11-09 15:34 | Inpatient (IN) | payer OTHER ==
--- NOTE | 2019-11-09 20:10 | HP ---
CIWA Score Nausea/Vomitin-Mild Nausea/No Vomiting Muscle Tremors: 1-None Visible, but [place] Anxiety: 4-Mod. Anxious/Guarded Agitation: 4-Moderately Restless Paroxysmal Sweats: 3 Orientation: 2-Disoriented Date<2 days Tacttile Disturbances: 0-None Auditory Disturbances: 0-None Visual Disturbances: 2-Mild Sensitivity (to light) Headache: 0-None Present CIWA-Ar Total Score: 17 - Admission Criteria [facility]ASAS Guidelines: Admission for Medically Managed Detox: Requires at least one of the followin. CIWA greater than 12 2. Seizures within the past 24 hours 3. Delirium tremens within the past 24 hours 4. Hallucinations within the past 24 hours 5. Acute intervention needed for co occurring medical disorder 6. Acute intervention needed for co occurring psychiatric disorder 7. Severe withdrawal that cannot be handled at a lower level of care (continued vomiting, continued diarrhea, abnormal vital signs) requiring intravenous medication and/or fluids 8. Patient presents the following: CIWA greater than 12 Admission Criteria Met: Admission criteria met Admitting History and Physical - Smoking History Smoking history: Unknown if ever smoked Have you smoked in the past 12 months: No Aproximately how many cigarettes per day: 20 - Alcohol/Substance Use Hx Alcohol Use: No Admission ROS S - HPI Chief Complaint: seeking benzo detox Allergies/Adverse Reactions: Allergies Allergy/AdvReac Type Severity Reaction Status Date / Time No Known Allergies Allergy Verified 10/11/19 12:10 History of Present Illness: CLIENT HERE FOR XANAX WITHDRAWAL. SEEKING DETOX AFTER ABORTING TXMENT AT [facility]. HE WAS DC 2 DAYS AGO AFTER QUESTING TO TERMINATE TXMENT. RETURNS HERE TODAY WITH COMPLAINT OF WITHDRAWAL SX'S.. REPORTS DAILY USE OF XANAX. LAST USE 8 HOURS AGO. HE IS KNOWN TO THE PROGRAM . LAST DC 2 MONTHS AGO. BUT HAS SINCE RELAPSED WITH SEVERAL ER VISITS NOTED. DENIES ANY SIGNIFICANT PERIOD OF CLEAN TIME IN THE PAST 12 MONTHS. DENIES HX/O WITHDRAWAL SZ. LAST BEING 2 WEEKS AGO. DENIES BLACKOUTS, IVDU, SI/HI/AVH. HOMELESS, UNEMPLOYED, DENIES LEGALS. Exam Limitations: No Limitations - Ebola screening Have you traveled outside of the country in the last 21 days: No Have you had contact with anyone from an Ebola affected area: No Have you been sick,other than usual withdrawal symptoms: No Do you have a fever: No - Review of Systems Constitutional: Chills, Night Sweats, Changes in sleep EENT: reports: No Symptoms Reported Respiratory: reports: No Symptoms reported Cardiac: reports: No Symptoms Reported GI: reports: Nausea : reports: No Symptoms Reported Musculoskeletal: reports: Joint Pain Integumentary: reports: [place] Neuro: reports: Seizure Endocrine: reports: No Symptoms Reported Hematology: reports: No Symptoms Reported Psychiatric: reports: Agitated (IIRITABLE), Anxious, Depressed Other Systems: Reviewed and Negative Patient History - Patient Medical History Hx Anemia: No Hx Asthma: No Hx Chronic Obstructive Pulmonary Disease (COPD): No Hx Cancer: No Hx Cardiac Disorders: No Hx Congestive Heart Failure: No Hx Hypertension: No Hx Hypercholesterolemia: No Hx Pacemaker: No HX Cerebrovascular Accident: No Hx Seizures: No Hx Dementia: No Hx Diabetes: No Hx Gastrointestinal Disorders: No Hx Liver Disease: No Hx Genitourinary Disorders: No Hx Sexually Transmitted Disorders: No Hx Renal Disease (ESRD): No Hx Thyroid Disease: No Hx Human Immunodeficiency Virus (HIV): No Hx Hepatitis C: No Hx Depression: No Hx Suicide Attempt: No Hx Bipolar Disorder: No Hx Schizophrenia: No - Patient Surgical History Past Surgical History: No Hx Neurologic Surgery: No Hx Cataract Extraction: No Hx Cardiac Surgery: No Hx Lung Surgery: No Hx Breast Surgery: No Hx Breast Biopsy: No Hx Abdominal Surgery: No Hx Appendectomy: No Hx Cholecystectomy: No Hx Genitourinary Surgery: No Hx Section: No Hx Orthopedic Surgery: No Anesthesia Reaction: No - PPD History Previous Implant?: Yes Documented Results: Negative w/proof Implanted On Prior [facility] Admission?: Yes Date: 04/11/18 Results: 0MM PPD to be Administered?: Yes - Smoking Cessation Smoking history: Current every day smoker Have you smoked in the past 12 months: No Aproximately how many cigarettes per day: 20 Cigars Per Day: 0 Hx Chewing Tobacco Use: Yes Initiated information on smoking cessation: Yes 'Breaking Loose' booklet given: 11/09/19 - Substance & Tx. History Hx Alcohol Use: No Hx Substance Use: Yes Substance Use Type: Cocaine, Tranquilizers (XANAX) Hx Substance Use Treatment: Yes ([facility]) - Substances abused Alprazolam (Xanax) Substance route: Oral Frequency: Daily Amount used: 8MG Age of first use: 26 Date of last use: 11/09/19 Cocaine Substance route: Inhalation Frequency: 3-6 times per week (NOT SURE) Amount used: 500 DOLLARS Age of first use: 16 Date of last use: 11/07/19 Admission Physical Exam [facility] - Physical General Appearance: Yes: Mild Distress, Irritable, Anxious HEENTM: Yes: EOMI, Normocephalic, Normal Voice, SHERRON, Pharynx Normal, Other (missing teeth) Respiratory: Yes: Chest Non-Tender, Lungs Clear, Normal Breath Sounds, No Respiratory Distress, No Accessory Muscle Use Neck: Yes: No masses,lesions,Nodules, Supple, Trachea in good position Breast: Yes: Breasts Symetrical Cardiology: Yes: Regular Rhythm, Regular Rate, S1, S2 Abdominal: Yes: Normal Bowel Sounds, Non Tender, Soft Genitourinary: Yes: Within Normal Limits Back: Yes: Normal Inspection Musculoskeletal: Yes: full range of Motion, Gait Steady Extremities: Yes: Normal Range of Motion, Non-Tender, Tremors (felt) Neurological: Yes: Fully Oriented, Alert, Motor Strength 5/5, Depressed Affect Integumentary: Yes: Clammy (cool) Lymphatic: Yes: Within Normal Limits - Diagnostic (1) Sedative, hypnotic or anxiolytic dependence with withdrawal, uncomplicated Current Visit: Yes Status: Acute (2) Homeless Current Visit: Yes Status: Suspected (3) Non compliance with medical treatment Current Visit: Yes Status: Chronic (4) Cocaine dependence, uncomplicated Current Visit: Yes Status: Acute (5) Nicotine dependence with withdrawal Current Visit: Yes Status: Chronic Qualifiers: Nicotine product type: cigarettes Qualified Code(s): F17.213 - Nicotine dependence, cigarettes, with withdrawal (6) Substance-induced sleep disorder Current Visit: Yes Status: Suspected (7) Substance induced mood disorder Current Visit: Yes Status: Suspected Cleared for Admission [facility] - Detox or Rehab [facility] Level of Care: Medically Managed Detox Regimen/Protocol: Ativan Claeared for Rehab Admission: No Breathalyzer - Breathalyzer Breathalyzer: 0 Urine Drug Screen - Test Device Lot number: [id number] Expiration date: 04/06/21 - Control Is test valid?: Yes - Results Drug screen NEGATIVE: No Urine drug screen results: GILBERTO-Cocaine, BZO-Benzodiazepines Inpatient Rehab Admission - Rehab Decision to Admit Inpatient rehab admission?: No
[2019-11-09] MEDS ORDERED: IBUPROFEN 400 MG TABLET (FP) PO PRN (20:20)
[2019-11-09] MEDS ORDERED: DICYCLOMINE HCL 10 MG CAPSULE PO PRN (20:20)
[2019-11-09] MEDS ORDERED: MAGNESIUM CITRATE 300 ML BOTTLE PO PRN (20:20)
[2019-11-09] MEDS ORDERED: METHOCARBAMOL 500 MG TABLET PO PRN (20:20)
[2019-11-09] MEDS ORDERED: MAGNESIUM HYDROX 2400MG/30ML ORAL SUSPENSION 30 ML CUP PO PRN (20:20)
[2019-11-09] MEDS ORDERED: P-EPHED 60MG/TRIPROLIDI 2.5MG TABLET PO PRN (20:20)
[2019-11-09] MEDS ORDERED: ONDANSETRON *ODT* 4 MG TABLET SL ONE (20:20)
[2019-11-09] MEDS ORDERED: NICOTINE POLACRILEX 2 MG GUM BUC PRN (20:20)
[2019-11-09] MEDS ORDERED: ACETAMINOPHEN 325 MG TABLET (FP) PO PRN ×2 (20:20)
[2019-11-09] MEDS ORDERED: MAG HYDROX/AL HYDROX/SIMETH 30 ML UNIT-DOSE CUP PO PRN (20:20)
[2019-11-09] MEDS ORDERED: MENTHOL/PHENOL 1 EACH UD MM PRN (20:20)
[2019-11-09] MEDS ORDERED: guaiFENesin 200 MG/10 ML 10 ML UNIT-DOSE CUPS PO PRN (20:20)
[2019-11-09] MEDS ORDERED: LORazepam 1 MG TABLET PO PRN (20:20)
[2019-11-09] MEDS ORDERED: BISMUTH SUBSALICYLATE 524 MG/30 ML UD PO PRN (20:20)
[2019-11-09] MEDS: LORazepam 2 MG TABLET PO SCH (23:19)
[2019-11-09] MEDS: MELATONIN 5 MG TABLETS PO SCH (23:19)
[2019-11-09] MEDS: hydrOXYzine PAMOATE 25 MG CAPSULE (FP) PO SCH (23:19)
[2019-11-09] MEDS: THIAMINE HCL 100 MG TABLET (FP) PO SCH (23:19)
[2019-11-10] MEDS: LORazepam 2 MG TABLET PO SCH ×4 (05:59→22:33)
[2019-11-10] MEDS: hydrOXYzine PAMOATE 25 MG CAPSULE (FP) PO SCH ×5 (05:59→22:33)
--- NOTE | 2019-11-10 09:32 | PN ---
S CIWA - CIWA Score Nausea/Vomitin-Mild Nausea/No Vomiting Muscle Tremors: 4-Moderate,w/Arms Extend Anxiety: 4-Mod. Anxious/Guarded Agitation: 1-Slight > Activity Paroxysmal Sweats: 2 Orientation: 0-Oriented Tacttile Disturbances: 0-None Auditory Disturbances: 0-None Visual Disturbances: 2-Mild Sensitivity Headache: 0-None Present CIWA-Ar Total Score: 14 [facility] Progress Note (SOAP) Subjective: 34 years old male admitted on 11/09/19 for benzo withdrawal sx management treating with ativan detox regiment Mr Betancur discharged from detox on 09/12/19 admitted on 10/11/19 for seizure readmitted on 11/06/19 for cellulitis discharged follows readmission to detox for benzo restlessness feeling tired prefers to stay in bed resting not been disturbed Objective: 11/10/19 09:32 Vital Signs Temperature 97.7 F 11/10/19 07:51 Pulse Rate 87 11/10/19 07:51 Respiratory Rate 20 11/10/19 07:51 Blood Pressure 112/74 11/10/19 07:51 O2 Sat by Pulse Oximetry (%) 11/10/19 09:32 lab see 11/07/19 ER report 11/10/19 09:35 Assessment: 11/10/19 09:35 benzo withdrawal Plan: ativan regiment
[2019-11-10] MEDS: PRENATAL VITAMINS W/ FOLIC ACID TABLET (FP) PO SCH (10:37)
[2019-11-10] MEDS: NICOTINE 21 MG/24 HOURS TOPICAL PATCH TD SCH (10:38)
--- NOTE | 2019-11-10 14:06 | EKG ---
Test Reason : Blood Pressure : / mmHG Vent. Rate : 063 BPM Atrial Rate : 063 BPM P-R Int : 164 ms QRS Dur : 088 ms QT Int : 404 ms P-R-T Axes : -19 071 060 degrees QTc Int : 413 ms NORMAL SINUS RHYTHM NORMAL ECG WHEN COMPARED WITH ECG OF 06-NOV-2019 05:08, NO SIGNIFICANT CHANGE WAS FOUND Confirmed by CAITIE FRANKLIN MD ([id number]) on 11/10/2019 2:05:52 PM Referred By: Confirmed By:CAITIE FRANKLIN MD
[2019-11-10 15:53] LABS: PH,URINE 6.5 (5.0-8.0); URINE APPEARANCE CLEAR; URINE BILIRUBIN NEGATIVE (NEGATIVE); URINE COLOR ORANGE; URINE GLUCOSE (UA) NEGATIVE (NEGATIVE); URINE KETONE NEGATIVE (NEGATIVE); URINE LEUK ESTERASE NEGATIVE (NEGATIVE); URINE NITRITE NEGATIVE (NEGATIVE); URINE PROTEIN NEGATIVE (NEGATIVE); URINE UROBILINOGEN 0.2 mg/dL (0.2-1.0)
--- NOTE | 2019-11-10 17:10 | CONSULT ---
[facility] Psychiatric Consult - Data Date of interview: 11/10/19 Admission source: [facility] Identifying data: Grinder Operator attempted to complete psychiatric consultation after lunch but patient was too drowsy and difficulty to awaken. Grinder Operator unable to complete psychiatric consultation. Please reorder consultation is requested by patient.
[2019-11-10] MEDS: MELATONIN 5 MG TABLETS PO SCH (22:33)
[2019-11-10] MEDS: THIAMINE HCL 100 MG TABLET (FP) PO SCH (22:33)
[2019-11-11] MEDS: LORazepam 1 MG TABLET PO SCH ×4 (06:18→22:21)
[2019-11-11] MEDS: hydrOXYzine PAMOATE 25 MG CAPSULE (FP) PO SCH ×5 (06:18→22:21)
--- NOTE | 2019-11-11 09:58 | PN ---
[facility] CIWA - CIWA Score Nausea/Vomitin-No Nausea/No Vomiting Muscle Tremors: None Anxiety: 0-No Anxiety, at Ease Agitation: 2 Paroxysmal Sweats: No Perspiration Orientation: 0-Oriented Tacttile Disturbances: 0-None Auditory Disturbances: 0-None Visual Disturbances: 0-None Headache: 0-None Present CIWA-Ar Total Score: 2 [facility] Progress Note (SOAP) Subjective: complaints of bone aches, noise sensitivity Objective: 11/11/19 09:57 Laboratory Results - last 24 hr 11/10/19 11/10/19 09:00 11:45 Urine Color [place] Urine Appearance Clear Urine pH 6.5 Ur Specific [place] 1.017 Urine Protein Negative Urine Glucose (UA) Negative Urine Ketones Negative Urine Blood Negative Urine Nitrite Negative Urine Bilirubin Negative Urine Urobilinogen 0.2 Ur Leukocyte Esterase Negative RPR Titer Nonreactive Vital Signs Temperature 97.2 F L 11/11/19 06:13 Pulse Rate 67 11/11/19 06:13 Respiratory Rate 18 11/11/19 06:13 Blood Pressure 99/56 L 11/11/19 06:13 O2 Sat by Pulse Oximetry (%) PE Gnl: WDWN, has drapes surrounding bed, yawning MS: awake, alert, loudly speaking Motor: nl Assessment: 11/11/19 09:57 1. Benzodiazepine use disorder Plan: 1. continue Ativan withdrawal protocol
[2019-11-11] MEDS: NICOTINE 21 MG/24 HOURS TOPICAL PATCH TD SCH (10:49)
[2019-11-11] MEDS: PRENATAL VITAMINS W/ FOLIC ACID TABLET (FP) PO SCH (10:49)
[2019-11-11 21:35] VITALS: TEMP 97.6
[2019-11-11] MEDS: THIAMINE HCL 100 MG TABLET (FP) PO SCH (22:21)
[2019-11-11] MEDS: MELATONIN 5 MG TABLETS PO SCH (22:22)
[2019-11-12] MEDS ORDERED: LORazepam 0.5 MG TABLET PO PRN
[2019-11-12] MEDS ORDERED: LORazepam 0.5 MG TABLET PO SCH (05:00)
[2019-11-12] MEDS: hydrOXYzine PAMOATE 25 MG CAPSULE (FP) PO SCH (05:44)
[2019-11-12 09:10] VITALS: BP 129/81; PULSE 99
--- NOTE | 2019-11-12 14:17 | DS ---
[facility] Detox Discharge Summary Admission Date: 11/09/19 Discharge Date: 11/12/19 (Left AMA) - History Present History: Cocaine Dependence, Sedative Dependence Additional Comments: As per H&P: "CLIENT HERE FOR XANAX WITHDRAWAL. SEEKING DETOX AFTER ABORTING TXMENT AT [facility]. HE WAS DC 2 DAYS AGO AFTER QUESTING TO TERMINATE TXMENT. RETURNS HERE TODAY WITH COMPLAINT OF WITHDRAWAL SX'S.. REPORTS DAILY USE OF XANAX. LAST USE 8 HOURS AGO. HE IS KNOWN TO THE PROGRAM . LAST DC 2 MONTHS AGO. BUT HAS SINCE RELAPSED WITH SEVERAL ER VISITS NOTED. DENIES ANY SIGNIFICANT PERIOD OF CLEAN TIME IN THE PAST 12 MONTHS. DENIES HX/O WITHDRAWAL SZ. LAST BEING 2 WEEKS AGO. DENIES BLACKOUTS, IVDU, SI/HI/AVH. HOMELESS, UNEMPLOYED, DENIES LEGALS". Pt is left AMA. Pt did not complete the detox protocol. Pt starts cursing and state, "i need to get the 'F' out of here, my girlfriend is on her way here". Attempt to let pt stay and complete the detox protocol failed. Pt is encouraged to follow-up with an outpatient CD program and also to follow_up with his pmd but was adamant about the information given. Pt is alert and oriented x3 and in no acute respiratory distress. Pertinent Past History: H/o cocaine and benzo use disorder. - Physical Exam Results Vital Signs: Vital Signs Temperature 97.6 F 11/12/19 08:32 Pulse Rate 99 H 11/12/19 08:32 Respiratory Rate 20 11/12/19 08:32 Blood Pressure 129/81 11/12/19 08:32 O2 Sat by Pulse Oximetry (%) Vital Signs 11/12/19 11/12/19 11/12/19 06:22 06:30 08:32 Temperature 97.6 F Pulse Rate 70 99 H Respiratory 18 16 20 Rate Blood Pressure 103/58 L 129/81 Pertinent Admission Physical Exam Findings: Withdrawal symptoms. - Treatment Hospital Course: Detox Protocol Followed, Detoxed Safely - Medication Discharge Medications: Ambulatory Orders Lamotrigine [Lamictal -] 200 mg PO BID #60 tablet 10/12/19 Quetiapine Fumarate [Seroquel -] 200 mg PO HS 11/09/19 - Diagnosis (1) Cocaine dependence, uncomplicated Status: Acute (2) Sedative, hypnotic or anxiolytic dependence with withdrawal, uncomplicated Status: Acute (3) Benzodiazepine abuse Status: Chronic (4) Cocaine abuse Status: Chronic (5) Psoriasis Status: Chronic - AMA Did Patient Leave Against Medical Advice: Yes
[2019-11-13] MEDS ORDERED: LORazepam 0.5 MG TABLET PO ONE (05:00)
== END 2019-11-12 09:37 | disposition left against medical advice (07) | DRG 770 ==
LOC: YASAS 15:34 → Y3N 20:38
PROVIDERS: ADMIT Allergy & Immunology; ATTEND Allergy & Immunology
PROC: HZ2ZZZZ Detoxification Services for Substance Abuse Treatment (ICD-10-PCS; principal; 2019-11-09)
DX: F13.230 Sedative, hypnotic or anxiolytic dependence with withdrawal, uncomplicated (principal); F14.20 Cocaine dependence, uncomplicated; F17.210 Nicotine dependence, cigarettes, uncomplicated; F19.282 Other psychoactive substance dependence with psychoactive substance-induced sleep disorder; F19.24 Other psychoactive substance dependence with psychoactive substance-induced mood disorder; L40.9 Psoriasis, unspecified; Z91.19 Patient's noncompliance with other medical treatment and regimen; Z59.0 Homelessness
CPT/HCPCS: 36415; 81003; 86593; 93005; 93010

== ENCOUNTER 2021-02-14 13:58 | Inpatient (IN) | payer OTHER ==
[2021-02-14 14:44] VITALS: BMI 22.9
[2021-02-14] MEDS ORDERED: BISMUTH SUBSALICYLATE 524 MG/30 ML PO PRN (15:29)
[2021-02-14] MEDS ORDERED: diazePAM 5 MG TABLET PO ONE (15:29)
[2021-02-14] MEDS ORDERED: MAGNESIUM CITRATE 300 ML BOTTLE PO PRN (15:29)
[2021-02-14] MEDS ORDERED: IBUPROFEN 400 MG TABLET (FP) PO PRN (15:29)
[2021-02-14] MEDS ORDERED: METHOCARBAMOL 500 MG TABLET PO PRN (15:29)
[2021-02-14] MEDS ORDERED: MENTHOL/PHENOL 1 EACH UD MM PRN (15:29)
[2021-02-14] MEDS ORDERED: MAG HYDROX/AL HYDROX/SIMETH 30 ML UNIT-DOSE CUP PO PRN (15:29)
[2021-02-14] MEDS ORDERED: ONDANSETRON *ODT* 4 MG TABLET SL PRN (15:29)
[2021-02-14] MEDS ORDERED: MAGNESIUM HYDROX 2400MG/30ML ORAL SUSPENSION 30 ML CUP PO PRN (15:29)
[2021-02-14] MEDS ORDERED: NICOTINE POLACRILEX 2 MG GUM BUC PRN (15:29)
[2021-02-14] MEDS ORDERED: diazePAM 5 MG TABLET PO PRN (15:29)
[2021-02-14] MEDS ORDERED: ACETAMINOPHEN 325 MG TABLET (FP) PO PRN ×2 (15:29)
[2021-02-14] MEDS: PRENATAL VITAMINS W/ FOLIC ACID TABLET (FP) PO SCH (17:40)
[2021-02-14] MEDS: hydrOXYzine PAMOATE 25 MG CAPSULE (FP) PO SCH ×2 (17:40→22:58)
[2021-02-14] MEDS: diazePAM 5 MG TABLET PO SCH ×3 (17:47→22:25)
[2021-02-14] MEDS: NICOTINE 21 MG/24 HOURS TOPICAL PATCH TD SCH (17:58)
[2021-02-14] MEDS ORDERED: traZODone HCL 100 MG TABLET (FP) PO SCH (22:00)
[2021-02-14] MEDS: THIAMINE HCL 100 MG TABLET (FP) PO SCH (22:24)
[2021-02-14] MEDS: MELATONIN 5 MG TABLETS PO SCH (22:27)
[2021-02-14] MEDS: TRIAMCINOLONE ACET 0.1% OINT 15 GM TUBE TP SCH (22:28)
[2021-02-15] MEDS: diazePAM 5 MG TABLET PO SCH ×5 (06:56→22:57)
[2021-02-15] MEDS: hydrOXYzine PAMOATE 25 MG CAPSULE (FP) PO SCH ×2 (06:56→11:07)
[2021-02-15 10:26] LABS: HEMATOCRIT 42.6 % (35.4-49); HEMOGLOBIN 15.1 GM/dL (11.7-16.9); MCH 31.7 pg (25.7-33.7); MCHC 35.5 g/dl (32.0-35.9); MEAN CELL VOLUME 89.3 fl (80-96); MEAN PLT VOLUME 8.2 fl (7.5-11.1); PLATELET COUNT 270 K/MM3 (134-434); RBC 4.77 M/mm3 (4.00-5.60); RDW 12.1 % (11.9-15.9); WHITE BLOOD COUNT 6.3 K/mm3 (4.0-10.0)
[2021-02-15 10:36] LABS: ALBUMIN 3.5 g/dl (3.4-5.0); CALCIUM 9.1 mg/dL (8.5-10.1)
[2021-02-15 10:37] LABS: BLOOD UREA NITROGEN 12.2 mg/dL (7-18)
[2021-02-15 10:39] LABS: BILIRUBIN,TOTAL 0.4 mg/dL (0.2-1); CREATININE 0.8 mg/dL (0.55-1.3)
[2021-02-15 10:41] LABS: TOT PROT 6.9 g/dl (6.4-8.2)
[2021-02-15] MEDS: PRENATAL VITAMINS W/ FOLIC ACID TABLET (FP) PO SCH (11:04)
[2021-02-15] MEDS: NICOTINE 21 MG/24 HOURS TOPICAL PATCH TD SCH (11:05)
[2021-02-15] MEDS: TRIAMCINOLONE ACET 0.1% OINT 15 GM TUBE TP SCH ×2 (11:05→22:58)
[2021-02-15] MEDS: hydrOXYzine PAMOATE 50 MG CAPSULE (FP) PO PRN (11:12)
[2021-02-15] MEDS: ATOMOXETINE HCL 40 MG CAPSULE PO SCH (13:00)
[2021-02-15] MEDS: THIAMINE HCL 100 MG TABLET (FP) PO SCH (22:57)
[2021-02-15] MEDS: traZODone HCL 100 MG TABLET (FP) PO SCH (22:57)
[2021-02-15] MEDS: MELATONIN 5 MG TABLETS PO SCH (22:58)
[2021-02-16] MEDS: diazePAM 5 MG TABLET PO SCH ×3 (07:03→22:38)
[2021-02-16] MEDS: hydrOXYzine PAMOATE 50 MG CAPSULE (FP) PO PRN (07:45)
[2021-02-16] MEDS: ATOMOXETINE HCL 40 MG CAPSULE PO SCH (10:49)
[2021-02-16] MEDS: PRENATAL VITAMINS W/ FOLIC ACID TABLET (FP) PO SCH (10:49)
[2021-02-16] MEDS: NICOTINE 21 MG/24 HOURS TOPICAL PATCH TD SCH (10:49)
[2021-02-16] MEDS: TRIAMCINOLONE ACET 0.1% OINT 15 GM TUBE TP SCH ×2 (10:49→22:40)
[2021-02-16] MEDS ORDERED: NICOTINE POLACRILEX 4 MG GUM BUC PRN (13:08)
[2021-02-16] MEDS: MELATONIN 5 MG TABLETS PO SCH (22:38)
[2021-02-16] MEDS: THIAMINE HCL 100 MG TABLET (FP) PO SCH (22:38)
[2021-02-16] MEDS: traZODone HCL 100 MG TABLET (FP) PO SCH (22:38)
[2021-02-17] MEDS ORDERED: diazePAM 5 MG TABLET PO SCH (06:00)
[2021-02-17] MEDS: ATOMOXETINE HCL 40 MG CAPSULE PO SCH (09:31)
[2021-02-17] MEDS: PRENATAL VITAMINS W/ FOLIC ACID TABLET (FP) PO SCH (09:32)
[2021-02-18] MEDS ORDERED: diazePAM 5 MG TABLET PO ONE (06:00)
[2021-02-18 13:15] VITALS: BP 94/63; PULSE 92; TEMP 97.6
== END 2021-02-17 10:15 | disposition home or self-care (01) | DRG 774 ==
LOC: YASAS 13:58 → Y6N 16:27
PROVIDERS: ADMIT Allergy & Immunology; ATTEND Allergy & Immunology
PROC: HZ2ZZZZ Detoxification Services for Substance Abuse Treatment (ICD-10-PCS; principal; 2021-02-14)
DX: F10.230 Alcohol dependence with withdrawal, uncomplicated (principal); F14.20 Cocaine dependence, uncomplicated; F12.20 Cannabis dependence, uncomplicated; F17.213 Nicotine dependence, cigarettes, with withdrawal; F19.282 Other psychoactive substance dependence with psychoactive substance-induced sleep disorder; F43.10 Post-traumatic stress disorder, unspecified; F90.9 Attention-deficit hyperactivity disorder, unspecified type; G40.89 Other seizures; L40.9 Psoriasis, unspecified; R73.9 Hyperglycemia, unspecified; R63.4 Abnormal weight loss; Z68.23 Body mass index [BMI] 23.0-23.9, adult
CPT/HCPCS: 36415; 80053; 82947; 85027; 86780; C9803; U0003; U0005

== ENCOUNTER 2021-09-06 00:46 | Inpatient (IN) | payer OTHER ==
[2021-09-06 02:49] VITALS: BMI 28.4
[2021-09-06] MEDS ORDERED: MAG HYDROX/AL HYDROX/SIMETH 30 ML UNIT-DOSE CUP PO PRN (09:09)
[2021-09-06] MEDS ORDERED: MAGNESIUM CITRATE 300 ML BOTTLE PO PRN (09:09)
[2021-09-06] MEDS ORDERED: chlordiazePOXIDE HCL 25 MG CAPSULE PO PRN (09:09)
[2021-09-06] MEDS ORDERED: MAGNESIUM HYDROX 2400MG/30ML ORAL SUSPENSION 30 ML CUP PO PRN (09:09)
[2021-09-06] MEDS ORDERED: NICOTINE 10 MG CARTRIDGE (INHALER) IH PRN (09:09)
[2021-09-06] MEDS ORDERED: METHOCARBAMOL 500 MG TABLET PO PRN (09:09)
[2021-09-06] MEDS ORDERED: IBUPROFEN 400 MG TABLET (FP) PO PRN (09:09)
[2021-09-06] MEDS ORDERED: ACETAMINOPHEN 325 MG TABLET (FP) PO PRN ×2 (09:09)
[2021-09-06] MEDS ORDERED: MENTHOL/PHENOL 1 EACH UD MM PRN (09:09)
[2021-09-06] MEDS ORDERED: BISMUTH SUBSALICYLATE 262 MG/15 ML BTL PO PRN (09:09)
[2021-09-06] MEDS ORDERED: ONDANSETRON *ODT* 4 MG TABLET SL PRN (09:09)
[2021-09-06] MEDS: hydrOXYzine PAMOATE 25 MG CAPSULE (FP) PO SCH ×4 (10:54→22:48)
[2021-09-06] MEDS: chlordiazePOXIDE HCL 25 MG CAPSULE PO SCH ×3 (12:49→22:49)
[2021-09-06] MEDS: PRENATAL VITAMINS W/ FOLIC ACID TABLET (FP) PO SCH (12:52)
[2021-09-06] MEDS: THIAMINE HCL 100 MG TABLET (FP) PO SCH (22:48)
[2021-09-06] MEDS: MELATONIN 5 MG TABLETS PO SCH (22:48)
[2021-09-07] MEDS: chlordiazePOXIDE HCL 25 MG CAPSULE PO SCH ×4 (06:39→22:35)
[2021-09-07] MEDS: hydrOXYzine PAMOATE 25 MG CAPSULE (FP) PO SCH ×5 (06:40→22:36)
[2021-09-07] MEDS: PRENATAL VITAMINS W/ FOLIC ACID TABLET (FP) PO SCH (11:03)
[2021-09-07] MEDS: MELATONIN 5 MG TABLETS PO SCH (22:36)
[2021-09-07] MEDS: THIAMINE HCL 100 MG TABLET (FP) PO SCH (22:36)
[2021-09-08] MEDS ORDERED: chlordiazePOXIDE HCL 25 MG CAPSULE PO SCH (05:00)
[2021-09-08] MEDS: hydrOXYzine PAMOATE 25 MG CAPSULE (FP) PO SCH (06:03)
[2021-09-08 09:02] VITALS: BP 107/60; PULSE 85; TEMP 97.3
[2021-09-09] MEDS ORDERED: chlordiazePOXIDE HCL 10 MG CAPSULE PO PRN
[2021-09-09] MEDS ORDERED: chlordiazePOXIDE HCL 10 MG CAPSULE PO SCH (05:00)
[2021-09-10] MEDS ORDERED: chlordiazePOXIDE HCL 10 MG CAPSULE PO SCH (05:00)
[2021-09-11] MEDS ORDERED: chlordiazePOXIDE HCL 10 MG CAPSULE PO ONE (05:00)
== END 2021-09-08 09:47 | disposition left against medical advice (07) | DRG 770 ==
LOC: YASAS 00:46 → Y3N 09:18
PROVIDERS: ADMIT Allergy & Immunology; ATTEND Allergy & Immunology
PROC: HZ2ZZZZ Detoxification Services for Substance Abuse Treatment (ICD-10-PCS; principal; 2021-09-06)
DX: F10.230 Alcohol dependence with withdrawal, uncomplicated (principal); F14.20 Cocaine dependence, uncomplicated; F12.20 Cannabis dependence, uncomplicated; F17.210 Nicotine dependence, cigarettes, uncomplicated; F19.24 Other psychoactive substance dependence with psychoactive substance-induced mood disorder; F41.9 Anxiety disorder, unspecified; F43.10 Post-traumatic stress disorder, unspecified; F90.9 Attention-deficit hyperactivity disorder, unspecified type; Z91.14 Patient's other noncompliance with medication regimen
CPT/HCPCS: C9803; U0003; U0005

== ENCOUNTER 2021-09-15 00:27 | Emergency (ER) | payer OTHER ==
[2021-09-15 00:42] VITALS: BP 100/66; PULSE 80; TEMP 97.3; BMI 28.7
[2021-09-15] MEDS ORDERED: AMOX TR/POT CLAV 875MG/125MG TABLETS (FP) PO ONE (02:02)
== END 2021-09-15 07:07 | disposition left against medical advice (07) ==
LOC: JER 00:27
DX: L40.9 Psoriasis, unspecified (principal); F19.10 Other psychoactive substance abuse, uncomplicated
CPT/HCPCS: 99283-25

== ENCOUNTER 2021-09-27 02:34 | Inpatient (IN) | payer OTHER ==
[2021-09-27 04:28] VITALS: BMI 25.4
[2021-09-27] MEDS ORDERED: NICOTINE 10 MG CARTRIDGE (INHALER) IH PRN (08:48)
[2021-09-27] MEDS ORDERED: MAGNESIUM CITRATE 300 ML BOTTLE PO PRN (08:48)
[2021-09-27] MEDS ORDERED: MENTHOL/PHENOL 1 EACH UD MM PRN (08:48)
[2021-09-27] MEDS ORDERED: ACETAMINOPHEN 325 MG TABLET (FP) PO PRN ×2 (08:48)
[2021-09-27] MEDS ORDERED: MAG HYDROX/AL HYDROX/SIMETH 30 ML UNIT-DOSE CUP PO PRN (08:48)
[2021-09-27] MEDS ORDERED: ONDANSETRON *ODT* 4 MG TABLET SL PRN (08:48)
[2021-09-27] MEDS ORDERED: MAGNESIUM HYDROX 2400MG/30ML ORAL SUSPENSION 30 ML CUP PO PRN (08:48)
[2021-09-27] MEDS ORDERED: IBUPROFEN 400 MG TABLET (FP) PO PRN (08:48)
[2021-09-27] MEDS ORDERED: BISMUTH SUBSALICYLATE 524 MG/30 ML PO PRN (08:48)
[2021-09-27] MEDS: diazePAM 5 MG TABLET PO SCH ×3 (12:51→22:27)
[2021-09-27] MEDS: PRENATAL VITAMINS W/ FOLIC ACID TABLET (FP) PO SCH (12:53)
[2021-09-27] MEDS: hydrOXYzine PAMOATE 25 MG CAPSULE (FP) PO SCH ×4 (12:53→22:26)
[2021-09-27] MEDS ORDERED: QUEtiapine FUMARATE 50 MG TABLET PO ONE (14:00)
[2021-09-27] MEDS: METHOCARBAMOL 500 MG TABLET PO PRN (17:57)
[2021-09-27] MEDS: diazePAM 5 MG TABLET PO PRN (20:25)
[2021-09-27] MEDS: MELATONIN 5 MG TABLETS PO SCH (22:26)
[2021-09-27] MEDS: THIAMINE HCL 100 MG TABLET (FP) PO SCH (22:26)
[2021-09-27] MEDS: QUEtiapine FUMARATE 200 MG TABLET PO SCH (22:26)
[2021-09-28] MEDS: diazePAM 5 MG TABLET PO SCH ×4 (05:34→22:29)
[2021-09-28] MEDS: hydrOXYzine PAMOATE 25 MG CAPSULE (FP) PO SCH ×5 (05:34→22:29)
[2021-09-28] MEDS: PRENATAL VITAMINS W/ FOLIC ACID TABLET (FP) PO SCH (10:24)
[2021-09-28] MEDS: diazePAM 5 MG TABLET PO PRN ×2 (12:29→20:49)
[2021-09-28] MEDS ORDERED: NICOTINE POLACRILEX 2 MG GUM BUC PRN (12:43)
[2021-09-28 13:38] LABS: CALCIUM 8.5 mg/dL (8.5-10.1)
[2021-09-28 13:39] LABS: BLOOD UREA NITROGEN 15.6 mg/dL (7-18)
[2021-09-28 13:42] LABS: CREATININE 0.7 mg/dL (0.55-1.3)
[2021-09-28 13:45] LABS: HEMATOCRIT 43.3 % (35.4-49); MCH 30.5 pg (25.7-33.7); MCHC 32.4 g/dl (32.0-35.9); MEAN CELL VOLUME 94.4 fl (80-96); PLATELET COUNT 213 10^3/uL (134-434); RBC 4.59 M/mm3 (4.00-5.60); RDW 12.2 % (11.9-15.9); WHITE BLOOD COUNT 5.2 K/mm3 (4.0-10.0)
[2021-09-28 13:46] LABS: BILIRUBIN,TOTAL 0.3 mg/dL (0.2-1); TOT PROT 5.6 g/dl (6.4-8.2)
[2021-09-28] MEDS: THIAMINE HCL 100 MG TABLET (FP) PO SCH (22:29)
[2021-09-28] MEDS: QUEtiapine FUMARATE 200 MG TABLET PO SCH (22:29)
[2021-09-28] MEDS: MELATONIN 5 MG TABLETS PO SCH (22:29)
[2021-09-29] MEDS ORDERED: diazePAM 5 MG TABLET PO SCH (06:00)
[2021-09-29] MEDS: hydrOXYzine PAMOATE 25 MG CAPSULE (FP) PO SCH ×2 (07:30→10:31)
[2021-09-29] MEDS: diazePAM 5 MG TABLET PO PRN (07:36)
[2021-09-29 09:30] VITALS: BP 108/58; PULSE 101; TEMP 97.1
[2021-09-29] MEDS: PRENATAL VITAMINS W/ FOLIC ACID TABLET (FP) PO SCH (10:30)
[2021-09-29] MEDS: METHOCARBAMOL 500 MG TABLET PO PRN (10:32)
[2021-09-30] MEDS ORDERED: diazePAM 5 MG TABLET PO SCH (06:00)
[2021-10-01] MEDS ORDERED: diazePAM 5 MG TABLET PO ONE (06:00)
== END 2021-09-29 11:50 | disposition left against medical advice (07) | DRG 770 ==
LOC: YASAS 02:34 → Y3N 08:48
PROVIDERS: ADMIT Allergy & Immunology; ATTEND Allergy & Immunology
PROC: HZ2ZZZZ Detoxification Services for Substance Abuse Treatment (ICD-10-PCS; principal; 2021-09-27)
DX: F10.230 Alcohol dependence with withdrawal, uncomplicated (principal); F13.230 Sedative, hypnotic or anxiolytic dependence with withdrawal, uncomplicated; F14.20 Cocaine dependence, uncomplicated; F12.20 Cannabis dependence, uncomplicated; F17.210 Nicotine dependence, cigarettes, uncomplicated; F19.24 Other psychoactive substance dependence with psychoactive substance-induced mood disorder; F90.9 Attention-deficit hyperactivity disorder, unspecified type; G47.00 Insomnia, unspecified; Z86.69 Personal history of other diseases of the nervous system and sense organs; Z56.0 Unemployment, unspecified; Z59.00 Homelessness unspecified; Z91.19 Patient's noncompliance with other medical treatment and regimen
CPT/HCPCS: 36415; 80053; 85027; 86780; C9803; U0003; U0005